=== PATIENT | female | born 1980 | race Caucasian/White ===

== ENCOUNTER → 2017-08-20 12:48 | Outpatient (CLI) | payer OTHER, SELFPAY ==
--- NOTE | 2017-08-20 12:52 | HPBI_ITS ---
MAMMOGRAPHY - BILATERAL SCREENING REASON FOR EXAM: Female, 37 years old. Routine annual screening examination. PERTINENT HISTORY: Aunt with breast cancer. TECHNIQUE: Digital bilateral breast rhiannon (3D mammographic acquisition) in the CC and MLO projections. 2-D mediolateral oblique (MLO) and craniocaudad (CC) views of both breasts were obtained. CAD: Full Field Digital Mammography with Computer Added Detection was performed. COMPARISON: Comparison is made with prior study dated August 03, 2016 and July 27, 2015. FINDINGS: Breast Composition: There are scattered areas of fibroglandular density. There are no dominant masses or suspicious calcifications. No other significant abnormalities are identified. There has been no significant change since the prior study. HPBI/SCREENING MAMM (CAD), BILAT IMPRESSION: Stable bilateral screening mammogram. Yearly follow-up mammogram recommended. (A) ASSESSMENT CATEGORY: BIRADS Category 1: Negative. A letter regarding these results will be sent to the patient by the facility within 30 days. Approximately 10% of breast cancers are not detected by mammography. A normal mammogram should not delay biopsy of a clinically suspicious abnormality. [id number] Electronically Signed: Earl Palencia MD at 8:49 EST Tel [phone], Service support ,
--- NOTE | 2017-08-20 12:52 | HPBI_ITS ---
MAMMOGRAPHY - BILATERAL SCREENING REASON FOR EXAM: Female, 37 years old. Routine annual screening examination. PERTINENT HISTORY: Aunt with breast cancer. TECHNIQUE: Digital bilateral breast reginaldo (3D mammographic acquisition) in the CC and MLO projections. 2-D mediolateral oblique (MLO) and craniocaudad (CC) views of both breasts were obtained. CAD: Full Field Digital Mammography with Computer Added Detection was performed. COMPARISON: Comparison is made with prior study dated August 03, 2016 and July 27, 2015. FINDINGS: Breast Composition: There are scattered areas of fibroglandular density. There are no dominant masses or suspicious calcifications. No other significant abnormalities are identified. There has been no significant change since the prior study. HPBI/Bilat Brst Screen Reginaldo Add-On IMPRESSION: Stable bilateral screening mammogram. Yearly follow-up mammogram recommended. (A) ASSESSMENT CATEGORY: BIRADS Category 1: Negative. A letter regarding these results will be sent to the patient by the facility within 30 days. Approximately 10% of breast cancers are not detected by mammography. A normal mammogram should not delay biopsy of a clinically suspicious abnormality. [id number] Electronically Signed: Earl Palencia MD at 8:49 EST Tel [phone], Service support ,
== END ==
PROVIDERS: Family Provider Family Medicine; PCP Family Medicine; Visit Provider Obstetrics & Gynecology
DX: Z12.31 Encounter for screening mammogram for malignant neoplasm of breast (principal)
CPT/HCPCS: 77063; 77067

== ENCOUNTER 2018-01-29 15:24 | Emergency (ER) | payer OTHER, SELFPAY ==
[2018-01-29 15:25] VITALS: BP 128/77; PULSE 79; RESP 16; TEMP 36.4; O2SAT 97; BMI 29.0
--- NOTE | 2018-01-29 15:54 | ED.VISSUMM ---
- ER Visit Summary Date of Service: 01/29/18 Chief Complaint: Chemical exposure right eye History of Present Illness: The patient is a 37 F who presents from PACU after exposure to chemicals from [place]. There is proxy 55% isopropyl alcohol and there are 2 ammonia chloride salts. She initially complained of discomfort. She irrigated her eye for 15-20 minutes. She now has no complaints other than her eye being red. She does not wear glasses or contacts. She denies double vision, blurred vision loss of vision. She does complain of slight grittiness. She denies any drainage from the eye. She denies pain with movement. She denies photophobia. Physical Examination: Vital signs are normal. Visual acuity is 20/20 right, left and both eyes. The sclera conjunctive are slightly injected on the right. Pupils are equal round reactive. Extra muscle intact. Sclera is injected. There is no photophobia to direct or consensual light. Slit lamp exam after application of floor seen reveals no corneal uptake. There is no flare cells anterior chamber. There is no abnormality of the lid, lash or lacrimal apparatus. Funduscopic exam is normal with a normal cup-to-disc ratio and no papilledema. Test Results: Slit-lamp exam was negative Emergency Department Course and Treatment: Symptomatic Treatment Plan: Discharge to home and follow-up with [facility] care Disposition: Discharged to home Impression: Chemical conjunctivitis This note was generated with [employer] dictation software. It may contain incorrect words, spelling, and punctuation that were not noted in review of the chart prior to signing ED Disposition - Plan for ED Patient: Disposition: Home or Assisted Living Chief Complaint: Eye Problem Instructions: ED Chemical Conjunctivitis Referrals: Kobe Espinosa DO [Primary Care Provider[facility] - [facility] [GROUP OF PHYSICIANS] - 2 Days
--- NOTE | 2018-01-29 16:01 | ED.DCSUM_ITS ---
- ER Visit Summary Date of Service: 01/29/18 Chief Complaint: Chemical exposure right eye History of Present Illness: The patient is a 37 F who presents from PACU after exposure to chemicals from [place]. There is proxy 55% isopropyl alcohol and there are 2 ammonia chloride salts. She initially complained of discomfort. She irrigated her eye for 15-20 minutes. She now has no complaints other than her eye being red. She does not wear glasses or contacts. She denies double vision, blurred vision loss of vision. She does complain of slight grittiness. She denies any drainage from the eye. She denies pain with movement. She denies photophobia. Physical Examination: Vital signs are normal. Visual acuity is 20/20 right, left and both eyes. The sclera conjunctive are slightly injected on the right. Pupils are equal round reactive. Extra muscle intact. Sclera is injected. There is no photophobia to direct or consensual light. Slit lamp exam after application of floor seen reveals no corneal uptake. There is no flare cells anterior chamber. There is no abnormality of the lid, lash or lacrimal apparatus. Funduscopic exam is normal with a normal cup-to-disc ratio and no papilledema. Test Results: Slit-lamp exam was negative Emergency Department Course and Treatment: Symptomatic Treatment Plan: Discharge to home and follow-up with [facility] care Disposition: Discharged to home Impression: Chemical conjunctivitis This note was generated with [employer] dictation software. It may contain incorrect words, spelling, and punctuation that were not noted in review of the chart prior to signing ED Disposition - Plan for ED Patient: Disposition: Home or Assisted Living Chief Complaint: Eye Problem Instructions: ED Chemical Conjunctivitis Referrals: Kobe Espinosa DO [Primary Care Provider] - [facility] [GROUP OF PHYSICIANS] - 2 Days
[2018-01-29] MEDS: Fluorescein 1 MG STRIP 1 STRIP RIGHT EYE (16:04)
== END 2018-01-29 16:12 | disposition home or self-care (01) ==
PROVIDERS: Emergency Provider Emergency Medicine; Family Provider Family Medicine; PCP Family Medicine
DX: H10.211 Acute toxic conjunctivitis, right eye (principal)
CPT/HCPCS: 99283

== ENCOUNTER → 2018-04-24 13:42 | Outpatient (CLI) | payer OTHER, SELFPAY ==
--- NOTE | 2018-04-24 13:45 | RAD_ITS ---
STUDY: X-RAY - LUMBAR SPINE REASON FOR EXAM: Female, 38 years old. Lower back pain TECHNIQUE: 5 view(s) of the lumbar spine were obtained. COMPARISON: None FINDINGS: Normal lumbar lordosis. There is no substantial scoliosis. There is a normal alignment of the vertebrae. Normal vertebral bodies and endplates. Normal disc space heights. The soft tissue structures are unremarkable. RAD/L/S Spine Min 4 Views IMPRESSION: Normal x-ray examination of the lumbar spine. Electronically Signed: Juan C Medrano MD at 7:04 EDT , Service support ,
== END ==
PROVIDERS: Family Provider Family Medicine; PCP Family Medicine; Referring Provider Family Medicine; Visit Provider Family Medicine
DX: M54.17 Radiculopathy, lumbosacral region (principal)
CPT/HCPCS: 72110

== ENCOUNTER → 2018-09-10 12:27 | Outpatient (CLI) | payer OTHER, SELFPAY ==
[2018-04-21 13:08] VITALS: BMI 29.0
[2018-09-10 13:51] LABS: Absolute Lymphocyte Count 1.67 X10^3/ul (0.83-4.51); Absolute Neutrophil Count 3.6 X10^3/uL (2.0-7.7); Basophil# 0.03 X10^3/uL; Basophil% 0.5 % (0-1); Eosinophil# 0.49 X10^3/uL; Eosinophils% 7.7 % (0-5); Hematocrit 38.8 % (37-47); Hemoglobin 13.2 g/dl (12.0-15.0); Lymphocyte # 1.67 X10^3/ul (4.0); Lymphocyte % 26.4 % (19-41); Mean Corpuscular Hgb 30.4 pg (27.0-32.0); Mean Corpuscular Volume 89.4 fL (81-99); Mean Platelet Vol. 9.3 fl (6.2-12.0); Monocyte# 0.55 X10^3/uL; Monocyte% 8.7 % (0-10); Neutrophil # 3.57 X10^3/uL (2.7-7.7); Neutrophil % 56.4 % (47-70); Platelet Count 306 K/mm3 (150-450); RBC Distribution Width CV 12.9 % (11.6-14.6); RBC Distribution Width SD 41.5 fl (35.1-43.9); Red Blood Count 4.34 M/mm3 (4.2-5.4); White Blood Count 6.3 K/mm3 (4.4-11.0)
[2018-09-10 13:58] LABS: POSITIVE COUNT NO; POSITIVE DIFFERENTIAL NO; POSITIVE MORPHOLOGY NO
[2018-09-10 14:11] LABS: AST(SGOT) 29 U/L (15-37); Alanine Aminotransfer ALT/SGPT 46 U/L (13-56); Albumin, Serum 3.9 g/dL (3.2-5.0); Alkaline Phosphatase 59 U/L (45-117); Anion Gap 10 (5-15); BUN 9 mg/dL (7-18); BUN/Creat Ratio 13.8 RATIO (10-20); Calcium,Total 8.2 mg/dL (8.5-10.1); Chloride 106 mmol/L (98-107); Cholesterol 151 mg/dL (200); Creatinine, Serum 0.65 mg/dL (0.55-1.02); EST Glomerular Filtration Rate 107 mL/min (>60); Est Glom Filt Rate - Afr Amer 130 mL/min (>60); Estradiol 36.8 pg/mL; Globulin 4.1 g/dL (2.2-4.2); Glucose 93 mg/dL (74-106); High Density Lipoprotein 25 mg/dL; Potassium 3.8 mmol/L (3.5-5.1); Prolactin 4.7 ng/mL; Sodium Level 140 mmol/L (136-145); Thyroid Stim Hormone (TSH) 0.84 uIU/mL (0.358-3.74); Triglycerides 394 mg/dL; Very Low Density Lipoprotein 79 mg/dL (5-40)
[2018-09-13 08:10] LABS: Testosterone, % Free 1.96 % (0.50-2.80); Testosterone, Free 0.45 ng/dL (0.10-0.85); Testosterone, Total 23 ng/dL (8-48)
[2018-09-13 12:47] LABS: DHEA Sulfate 206.3 ug/dL (57.3-279.2)
[2018-09-15 09:44] LABS: 17-Hydroxyprogesterone 16 ng/dL (.)
== END ==
PROVIDERS: Family Provider Family Medicine; PCP Family Medicine; Referring Provider Family Medicine; Visit Provider Family Medicine
DX: Z00.00 Encounter for general adult medical examination without abnormal findings (principal); N91.2 Amenorrhea, unspecified
CPT/HCPCS: 36415; 80053; 80061; 82533; 82627; 82670; 83498; 84146; 84402; 84403; 84443; 85025; 82626

== ENCOUNTER → 2018-09-23 14:40 | Outpatient (CLI) | payer OTHER, SELFPAY ==
--- NOTE | 2018-09-23 14:41 | BI_ITS ---
MAMMOGRAPHY - BILATERAL SCREENING REASON FOR EXAM: Female, 38 years old. Routine annual screening examination. PERTINENT HISTORY: Aunts with breast cancer. TECHNIQUE: Digital bilateral breast rhiannon (3D mammographic acquisition) in the CC and MLO projections. 2-D mediolateral oblique (MLO) and craniocaudad (CC) views of both breasts were obtained. CAD: Full Field Digital Mammography with Computer Added Detection was performed. COMPARISON: Comparison is made with prior study dated August 20, 2017 and August 03, 2016. FINDINGS: Breast Composition: There are scattered areas of fibroglandular density. There are no dominant masses or suspicious calcifications. No other significant abnormalities are identified. There has been no significant change since the prior study. BI/SCREENING MAMM (CAD), BILAT IMPRESSION: Stable bilateral screening mammogram. Yearly follow-up mammogram recommended. (A) ASSESSMENT CATEGORY: BIRADS Category 1: Negative. A letter regarding these results will be sent to the patient by the facility within 30 days. Approximately 10% of breast cancers are not detected by mammography. A normal mammogram should not delay biopsy of a clinically suspicious abnormality. [id number] Electronically Signed: Earl Palencia, at 9:07 EDT , Service support ,
== END ==
PROVIDERS: Family Provider Family Medicine; PCP Family Medicine; Referring Provider Obstetrics & Gynecology; Visit Provider Obstetrics & Gynecology
DX: Z12.31 Encounter for screening mammogram for malignant neoplasm of breast (principal)
CPT/HCPCS: 77063; 77067

== ENCOUNTER → 2018-10-10 09:21 | Outpatient (CLI) | payer OTHER, SELFPAY ==
--- NOTE | 2018-10-10 09:23 | RAD_ITS ---
STUDY: SWALLOWING STUDY REASON FOR EXAM: Female, 38 years old. Dysphagia. TECHNIQUE: The examination was performed with Speech Pathology in attendance. Under fluoroscopic observation, the patient ingested thin barium, thick barium, barium pudding, and barium coated cracker. FLUOROSCOPY TIME: 1:33 minutes/seconds. 1471 images were obtained. RADIOLOGIST INVOLVEMENT: Radiologist was present and providing direct supervision. COMPARISON: None. FINDINGS: The following was observed during swallowing of the various mixtures of barium: Thin Barium: There was no evidence of aspiration or laryngeal penetration. Barium Pudding: There was no evidence of aspiration or laryngeal penetration. Barium Coated Cracker: There was no evidence of aspiration or laryngeal penetration. RAD/Swallowing Function w/Video IMPRESSION: Normal tailored barium swallow study. No evidence of increased risk for aspiration. The swallow study findings were discussed with the patient by the speech pathologist at the conclusion of the examination. Please see speech pathology report for more information and recommendations. Electronically Signed: Earl Palencia, at 10:15 EDT , Service support ,
--- NOTE | 2018-10-10 09:30 | SP.MBSS_ITS ---
PRIMARY / SECONDARY DIAGNOSIS: Dysphagia REFERRING PHYSICIAN: Dr. Espinosa CURRENT DIET: regular textures/tin liquids DENTITION: natural MENTAL STATUS: WNL RESPIRATORY STATUS: WNL PREVIOUS MODIFIED BARIUM SWALLOW STUDY: n/a REASON FOR REFERRAL: further assessment of swallow function d/t reported coughing during and after meals, primarily w/ solid textures (bread, pasta), once requiring the Heimlich maneuver, globus sensation MEDICAL HISTORY: limited history provided by patient; GERD w/ recent initiation of Protonix STUDY FINDINGS: Patient participated in a Modified Barium Swallow (MBS) study on 10/10/2018. Dr. Palencia was the radiologist present for this evaluation. This study was recorded in the lateral view and images were sent to PACs for storage. The following consistencies were presented to this patient for analysis of oropharyngeal swallow function: thin liquid, pudding and a regular texture shortbread cookie. Results of the MBS are as follows: PENETRATION / ASPIRATION SCALE (JOEL): 1 = does not enter airway 2 = enters airway/above vocal folds/ejected 3 = enters airway/above vocal folds/not ejected 4 = enters airway/contacts vocal folds/ejected 5 = enters airway/contacts vocal folds/not ejected 6 = enters airway/below vocal folds/ejected 7 = enters airway/below vocal folds/not ejected despite effort 8 = enters airway/below vocal folds/no effort PENETRATION / ASPIRATION SCALE (SCORE): 1. Thin liquid via teaspoon: 1 2. Thin liquid via teaspoon: 1 3. Thin liquid via cup, single sip: 1 4. Thin liquid via cup, sequential swallows: 1 5. Thin liquid via straw, single sip: 1 6. Puddin 7. Cookie: 1 IMPRESSION ORAL PHASE CHARACTERIZED BY: LABIAL SEAL: no labial escape TONGUE CONTROL DURING BOLUS MANIPULATION: cohesive bolus between tongue to palatal seal BOLUS PREPARATION / MASTICATION: timely and efficient chewing and mashing BOLUS TRANSPORT / LINGUAL MOTION: brisk tongue motion ORAL RESIDUE: complete oral clearance PHARYNGEAL PHASE CHARACTERIZED BY: INITIATION OF PHARYNGEAL SWALLOW: bolus head at posterior angle of ramus at first hyoid excursion SOFT PALATE ELEVATION: no bolus between soft palate and pharyngeal wall LARYNGEAL ELEVATION: complete superior movement of thyroid cartilage with complete approximation of arytenoids cartilage to epiglottic petiole ANTERIOR HYOID EXCURSION: complete anterior movement EPIGLOTTIC MOVEMENT: complete epiglottic inversion LARYNGEAL VESTIBULE CLOSURE AT HEIGHT OF SWALLOW: complete laryngeal vestibule closure with no air/contrast in laryngeal vestibule PHARYNGEAL STRIPPING WAVE: pharyngeal stripping wave present / complete PHARYNGOESOPHAGEAL SEGMENT OPENING: complete distension and complete duration with no obstruction of flow TONGUE BASE RETRACTION: no contrast between tongue base and posterior pharyngeal wall PHARYNGEAL RESIDUE: trace residue within or on pharyngeal structures ESOPHAGEAL PHASE CHARACTERIZED BY: ESOPHAGEAL BOLUS CLEARANCE IN THE UPRIGHT POSITION: esophageal retention INTERPRETATION OF RESULTS: Patient presents with an oropharyngeal swallow function that is grossly within normal limits. Oral phase marked by sufficient oral containment, timely bolus prep and A-P transfer, trace contrast retention post deglutition. Pharyngeal phase is marked by sufficient tongue base contact w/ the posterior pharyngeal wall, timely pharyngeal swallow onset, hyolaryngeal excursion WNL w/ complete vocal fold adduction/laryngeal vestibule closure/epiglottic inversion for airway protection, complete PES distention for bolus clearance into the esophagus, trace contrast retention lining the valleculae post deglutition. Esophageal phase marked by retention below the PES w/ slowed clearance. Globus sensation possibly attributed to mild esophageal retention noted w/ pudding trial. The Patient presents with mastication and deglutition abilities found to be grossly within normal limits. 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 Would consider further workup via ENT to determine if there is structural damage or irritation due to possible reflux of gastric contents that may be contributing to globus sensation and coughing following meals. No further skilled speech-language intervention warranted. ADDITIONAL COMMENTS/RECOMMENDATIONS: Results and recommendations were discussed with the Patient immediately following MBS completion, with the Patient verbalizing understanding and agreement with all recommendations and education provided. IMAGE COUNT: [id number]
== END ==
PROVIDERS: Family Provider Family Medicine; PCP Family Medicine; Referring Provider Family Medicine; Visit Provider Family Medicine
DX: R13.10 Dysphagia, unspecified (principal)
CPT/HCPCS: 74230; 92611

== ENCOUNTER → 2019-10-13 | Outpatient (CLI) | payer OTHER, SELFPAY ==
[2018-10-23 08:37] VITALS: BMI 30.7
[2019-10-13 16:59] LABS: Hemoglobin 12.7 g/dL (12.0-15.0); Mean Corp Hgb Conc 34.3 g/dL (32-36); Mean Corpuscular Hgb 29.7 pg (27.0-32.0); Mean Corpuscular Volume 86.7 fL (81-99); Platelet Count 318 K/mm3 (150-450); RBC Distribution Width CV 12.9 % (11.6-14.6); RBC Distribution Width SD 39.6 fl (35.1-43.9); Red Blood Count 4.27 M/mm3 (4.2-5.4); White Blood Count 7.7 K/mm3 (4.4-11.0)
[2019-10-13 17:25] LABS: Vitamin D,25 Hydroxy 16.6 ng/mL
[2019-10-13 17:31] LABS: Estradiol 44.5 pg/mL; Thyroid Stim Hormone (TSH) 0.97 uIU/mL (0.358-3.74)
[2019-10-13 17:58] LABS: Progesterone Level < 0.21 ng/mL (See Comment)
[2019-10-17 14:07] LABS: DHEA Sulfate 225.1 ug/dL (57.3-279.2)
[2019-10-17 16:59] LABS: Anti-Mullerian Hormone,Serum 0.284 ng/mL (.); Cancer Antigen 125 11.7 U/mL (0.0-38.1); Sex Hormone-binding Globulin 19.3 nmol/L (24.6-122.0)
== END | disposition home or self-care (01) ==
PROVIDERS: PCP Family Medicine; Referring Provider Obstetrics & Gynecology; Visit Provider Obstetrics & Gynecology
DX: N91.5 Oligomenorrhea, unspecified (principal)
CPT/HCPCS: 36415; 82306; 82627; 82670; 83516; 84144; 84270; 84403; 84443; 85027; 86304; 82626

== ENCOUNTER → 2019-11-10 | Outpatient (CLI) | payer OTHER, SELFPAY ==
[2018-10-23 08:37] VITALS: BMI 30.7
--- NOTE | 2019-11-10 15:43 | US_ITS ---
STUDY: ULTRASOUND OF THE FEMALE PELVIS - COMPLETE REASON FOR EXAM: Female, 39 years old. irreg menses LMP: 09/27/2019 TECHNIQUE: Transabdominal TECHNICAL QUALITY: Limited. Examination limited by bowel gas. COMPARISON: None. FINDINGS: The uterus is anteverted and is in a midline position. The uterus measures 9.7 x 6.1 x 4.2 cm. There is a Nabothian cyst of the cervix. The endometrium measures 7.0 mm in thickness, and is hyperechoic. There is no demonstrated endometrial mass. There is no demonstrated myometrial mass. I.U.D. - The patient does not have an I.U.D. The right ovary is visualized. The right ovary measures 2.2 x 1.8 x 1.2 cm. Within the right ovary there is a round anechoic structure consistent with a cyst measuring 0.8 x 0.8 x 0.5 cm. There is no visualized right adnexal mass or complex lesion. There is normal arterial and normal venous vascularity. The left ovary is visualized. The left ovary measures 6.0 x 3.4 cm. Within the left ovary there is a round anechoic structure measuring 2.9 x 2.9 x 3.2 cm consistent with a simple cyst. There is no visualized left adnexal mass or complex lesion. There is normal arterial and normal venous vascularity. There is no fluid in the cul-de-sac. The volume of the bladder was 358.98 ml. US/Pelvic (Non ) IMPRESSION: Normal female pelvis ultrasound. Electronically Signed: Tara Salas MD at 0:29 EDT , Service support ,
== END | disposition home or self-care (01) ==
LOC: OPUS 15:42
PROVIDERS: PCP Family Medicine; Referring Provider Obstetrics & Gynecology; Visit Provider Obstetrics & Gynecology
DX: N92.5 Other specified irregular menstruation (principal)
CPT/HCPCS: 76856

== ENCOUNTER → 2020-01-05 08:56 | Outpatient (CLI) | payer OTHER, SELFPAY ==
[2020-01-05 08:53] VITALS: BMI 29.0
--- NOTE | 2020-01-05 08:58 | RAD_ITS ---
STUDY: X-RAY - LEFT HAND, ATTENTION INDEX FINGER REASON FOR EXAM: Female, 39 years old. BUMP POSTERIOR FINGER AT DIPJ, NO INJURY TECHNIQUE: 3 view(s) of the finger were obtained. COMPARISON: None. FINDINGS: Normal metacarpal head. Normal metacarpophalangeal joint. Normal proximal phalanx. Normal middle phalanx. Normal distal phalanx. Normal proximal interphalangeal joint. Normal distal interphalangeal joint. Nonspecific soft tissue swelling over the DIP joint of the index finger. No radiopaque foreign body noted. RAD/Finger(s) Min 2 Views IMPRESSION: Normal x-ray examination of the finger. Nonspecific soft tissue swelling dorsal to the DIP joint of the index finger, no foreign body noted Electronically Signed: Jorge Alberto Billy MD at 10:03 EDT , Service support ,
== END ==
PROVIDERS: PCP Family Medicine; Referring Provider Orthopaedic Surgery; Visit Provider Orthopaedic Surgery
DX: M79.645 Pain in left finger(s) (principal)
CPT/HCPCS: 73140

== ENCOUNTER → 2020-05-25 11:10 | Outpatient (CLI) | payer OTHER, SELFPAY ==
[2018-10-23 08:37] VITALS: BMI 30.7
[2020-01-05 08:53] VITALS: BMI 29.0
[2020-05-25 11:56] LABS: Glucose 96 mg/dL (74-106)
[2020-05-25 12:05] LABS: Insulin 9.7 mU/L (2.6-37.6)
[2020-05-25 12:07] LABS: Hemoglobin A1c 5.4 % (3.8-5.6)
[2020-05-26 10:25] LABS: Hematocrit 35.7 % (37-47); Hemoglobin 11.7 g/dL (12.0-15.0); Mean Corp Hgb Conc 32.8 g/dL (32-36); Mean Corpuscular Hgb 27.7 pg (27.0-32.0); Mean Corpuscular Volume 84.6 fL (81-99); Mean Platelet Vol. 9.5 fl (6.2-12.0); Platelet Count 366 K/mm3 (150-450); RBC Distribution Width CV 12.8 % (11.6-14.6); Red Blood Count 4.22 M/mm3 (4.2-5.4); White Blood Count 6.8 K/mm3 (4.4-11.0)
== END ==
PROVIDERS: PCP Family Medicine; Referring Provider Obstetrics & Gynecology; Visit Provider Obstetrics & Gynecology
DX: N92.5 Other specified irregular menstruation (principal); N92.1 Excessive and frequent menstruation with irregular cycle
CPT/HCPCS: 36415; 82947; 83036; 83525; 85027

== ENCOUNTER → 2020-06-07 12:25 | Outpatient (CLI) | payer OTHER, SELFPAY ==
[2020-01-05 08:53] VITALS: BMI 29.0
--- NOTE | 2020-06-07 12:27 | US_ITS ---
STUDY: ULTRASOUND OF THE FEMALE PELVIS - COMPLETE REASON FOR EXAM: Female, 40 years old. IRREGULAR MENSES MENSES SINCE Apr ON [place]OVERA LMP: 04/16/2020 TECHNIQUE: Transabdominal and Transvaginal TECHNICAL QUALITY: Adequate. COMPARISON: None. FINDINGS: The uterus is anteverted and is in a midline position. The uterus measures 8.7 x 4.7 x 4.0 cm. Normal uterine cervix. The endometrium measures 6.1 mm in thickness, and is hyperechoic. There is no demonstrated endometrial mass. 2 fibroids are noted, largest measuring 1.8 x 2.1 x 2.1 cm. I.U.D. - The patient does not have an I.U.D. possible endometrial polyp measuring 8 x 9 x 4 mm. The right ovary is visualized. The right ovary measures 3.9 x 3.6 x 2.8 cm cm. There is no right ovarian cyst or ovarian mass. Septated ovarian cyst measuring 3.2 x 3.2 x 2.5 cm. There is normal arterial and normal venous vascularity. The left ovary is visualized. The left ovary measures 2.5 x 2.1 x 1.9 cm cm. There is no left ovarian cyst or ovarian mass. There is no visualized left adnexal mass or complex lesion. There is normal arterial and normal venous vascularity. There is no fluid in the cul-de-sac. The pre void volume of the bladder was 868 ml. Polycystic ovary disease: No. US/Transvaginal Non- IMPRESSION: 1. Uterine fibroids 2. Possible endometrial polyp 3. Partially septated right ovarian cyst Electronically Signed: Ja Sanon DO at 22:49 EST Tel , Service support ,
--- NOTE | 2020-06-07 12:27 | US_ITS ---
STUDY: ULTRASOUND OF THE FEMALE PELVIS - COMPLETE REASON FOR EXAM: Female, 40 years old. IRREGULAR MENSES MENSES SINCE Apr ON PROVERA LMP: 04/16/2020 TECHNIQUE: Transabdominal and Transvaginal TECHNICAL QUALITY: Adequate. COMPARISON: None. FINDINGS: The uterus is anteverted and is in a midline position. The uterus measures 8.7 x 4.7 x 4.0 cm. Normal uterine cervix. The endometrium measures 6.1 mm in thickness, and is hyperechoic. There is no demonstrated endometrial mass. 2 fibroids are noted, largest measuring 1.8 x 2.1 x 2.1 cm. I.U.D. - The patient does not have an I.U.D. possible endometrial polyp measuring 8 x 9 x 4 mm. The right ovary is visualized. The right ovary measures 3.9 x 3.6 x 2.8 cm cm. There is no right ovarian cyst or ovarian mass. Septated ovarian cyst measuring 3.2 x 3.2 x 2.5 cm. There is normal arterial and normal venous vascularity. The left ovary is visualized. The left ovary measures 2.5 x 2.1 x 1.9 cm cm. There is no left ovarian cyst or ovarian mass. There is no visualized left adnexal mass or complex lesion. There is normal arterial and normal venous vascularity. There is no fluid in the cul-de-sac. The pre void volume of the bladder was 868 ml. Polycystic ovary disease: No. US/Pelvic (Non ) IMPRESSION: 1. Uterine fibroids 2. Possible endometrial polyp 3. Partially septated right ovarian cyst Electronically Signed: Ja Sanon DO at 22:49 EST Tel , Service support ,
== END ==
PROVIDERS: PCP Family Medicine; Referring Provider Obstetrics & Gynecology; Visit Provider Obstetrics & Gynecology
DX: N92.1 Excessive and frequent menstruation with irregular cycle (principal)
CPT/HCPCS: 76830; 76856

== ENCOUNTER → 2020-07-06 08:35 | Outpatient (CLI) | payer OTHER, SELFPAY ==
[2020-01-05 08:53] VITALS: BMI 29.0
[2020-06-24 10:38] LABS: Hematocrit 33.9 % (37-47); Hemoglobin 11.2 g/dL (12.0-15.0); Mean Corpuscular Hgb 28.1 pg (27.0-32.0); Mean Corpuscular Volume 85.2 fL (81-99); Mean Platelet Vol. 8.5 fl (6.2-12.0); Platelet Count 374 K/mm3 (150-450); RBC Distribution Width CV 13.4 % (11.6-14.6); RBC Distribution Width SD 41.2 fl (35.1-43.9); Red Blood Count 3.98 M/mm3 (4.2-5.4)
[2020-06-24 10:56] LABS: Prothrombin Time (Protime)PT. 13.1 SECONDS (11.7-14.9)
[2020-06-24 10:57] LABS: Partial Thromboplast Time 27.1 Seconds (24.1-36.2)
== END ==
PROVIDERS: PCP Family Medicine; Referring Provider Obstetrics & Gynecology; Visit Provider Obstetrics & Gynecology
DX: Z01.818 Encounter for other preprocedural examination (principal)
CPT/HCPCS: 36415; 85027; 85610; 85730; 86850; 86900; 86901

== ENCOUNTER → 2020-11-30 10:24 | Outpatient (CLI) | payer OTHER, SELFPAY ==
[2020-01-05 08:53] VITALS: BMI 29.0
--- NOTE | 2020-11-30 10:26 | BI_ITS ---
MAMMOGRAPHY - BILATERAL SCREENING 3-D TOMOSYNTHESIS REASON FOR EXAM: Female, 40 years old. Routine screening PERTINENT HISTORY: Aunts with breast cancer.. TECHNIQUE: 2-D mammograms and 3-D Tomosynthesis of the breast (s) were performed. CAD was performed. COMPARISON: 09/23/2018 FINDINGS: The breast composition is composed of scattered fibroglandular density. Scattered benign calcifications are seen. No dense spiculated masses or suspicious microcalcifications are identified. No architectural distortion is identified. There is no skin thickening or retraction. There has been no significant change since the prior study. BI/SCRN MAMM (CAD)W/SHAY BILAT IMPRESSION: No mammographic signs of malignancy. Routine yearly mammograms recommended. ASSESSMENT CATEGORY: BIRADS Category 1: Negative. A letter regarding these results will be sent to the patient by the facility within 30 days. FOLLOW UP RECOMMENDATION: Yearly follow up mammogram recommended. (A) Approximately 10% of breast cancers are not detected by mammography. A normal mammogram should not delay biopsy of a clinically suspicious abnormality. Electronically Signed: Jorge Alberto Billy MD at 11:12 EDT , Service support ,
== END ==
PROVIDERS: PCP Family Medicine; Referring Provider Obstetrics & Gynecology; Visit Provider Obstetrics & Gynecology
DX: Z12.31 Encounter for screening mammogram for malignant neoplasm of breast (principal)
CPT/HCPCS: 77063; 77067

== ENCOUNTER → 2021-04-19 12:28 | Outpatient (CLI) | payer OTHER, SELFPAY ==
--- NOTE | 2021-04-19 12:30 | US_ITS ---
STUDY: ULTRASOUND BREAST - LEFT REASON FOR EXAM: Female, 41 years old. Palpable mass, pain TECHNIQUE: Axial and longitudinal images of the LEFT breast were performed with a high resolution ultrasound transducer. # OF IMAGES: [id number] COMPARISON: Screening mammogram 11/30/2020 FINDINGS: LEFT Breast: Heterogeneous background echotexture. Multiple longitudinal and transverse ultrasound images of the upper outer quadrant demonstrate 8mm oval parallel circumscribed hypoechoic mass with no posterior features not consistent with a simple cyst and therefore ultrasound-guided vacuum-assisted core biopsy is recommended.: US/Breast Limited Unilateral IMPRESSION: Ultrasound confirms an 8 mm oval circumscribed hypoechoic mass and ultrasound-guided vacuum-assisted core biopsy is recommended. ASSESSMENT CATEGORY: BIRADS Category 4: Suspicious - Biopsy Should Be Considered. A letter regarding these results will be sent to the patient by the facility within 30 days. Electronically Signed: Benitez Cotto MD at 16:19 EDT Tel , Service support ,
== END ==
PROVIDERS: PCP Family Medicine; Referring Provider Obstetrics & Gynecology; Visit Provider Obstetrics & Gynecology
DX: N63.20 Unspecified lump in the left breast, unspecified quadrant (principal); N64.4 Mastodynia
CPT/HCPCS: 76642

== ENCOUNTER → 2021-04-29 07:50 | Outpatient (CLI) | payer OTHER, SELFPAY ==
--- NOTE | 2021-04-29 | BRBX_PTH ---
PATIENT: ABHI STEPHENS LOC: [facility]US U#:[id number] AGE/SX: 45/F ROOM: RE04/29/[address]: Dr. Schuyler Franklin MD : 1980 BED: DIS: SPEC #: [id number] RECD: 04/29/21 10:57 STATUS: GEOVANY REJaclyn #: [id number] VANESSA: 04/29/21 00:[address]: Schuyler Franklin DEPT: SURGICAL PATHOLOGY RECD BY: Juan Cm ENTERED: 04/29/21 10:57 SP TYPE: BREAST BX OTHR DR: Dr. Kobe Espinosa DO Tissues: Left breast, NOS Procedures: Surgery Specimen Level IV HEADER OPERATION: Ultrasound-guided left breast biopsy PRE-OP DIAGNOSIS: Left breast lesion near axilla TISSUE SUBMITTED: Axilla left breast ISCHEMIC TIME: 1 minute FIXATION TIME: 59 hours MICROSCOPIC DIAGNOSIS Left breast lesion near axilla, ultrasound-guided core biopsy: Fragments of fibroadipose tissue, no pathologic diagnosis. Negative for atypia or malignancy. See comment. CAROLA:isabel 05/02/2021 COMMENT Breast tissue is not identified in the specimen. Correlation with clinical, radiologic findings and appropriate follow up are necessary. Re-biopsy or excision of the lesion is suggested if clinically indicated. MICROSCOPIC DESCRIPTION Slides are reviewed. GROSS DESCRIPTION Received in fixative is one container labeled with the patient's name and designated left breast. The specimen consists of multiple elongated fragments of mckeon-yellow fibroadipose tissue that in aggregate measure 1 x 0.5 x 0.1 cm. The entire specimen is submitted in one cassette. / CAROLA:isabel 04/29/21 TC:4 [facility] [place]: [id number]
--- NOTE | 2021-04-29 07:57 | US_ITS ---
STUDY: ULTRASOUND BREAST - LEFT REASON FOR EXAM: Female, 41 years old. Ultrasound guided biopsy of the left axillary mass. TECHNIQUE: Axial and longitudinal images of the LEFT breast were performed with a high resolution ultrasound transducer. # OF IMAGES: 21 COMPARISON: Comparison is made with prior sonogram dated 04/19/2021. FINDINGS: LEFT Breast: Under direct sonographic guidance, the surgeon performed 3 core biopsies of the left axillary mass. US/US Breast Biopsy 1st Lesion IMPRESSION: Ultrasound guided biopsy of the left axillary mass. ASSESSMENT CATEGORY: BIRADS Category 4: Suspicious - Biopsy Should Be Considered. A letter regarding these results will be sent to the patient by the facility within 30 days. Electronically Signed: Earl Palencia MD at 15:07 EDT , Service support ,
--- NOTE | 2021-04-29 08:33 | PCM.OPRPT ---
Problems Associated Problem List Diagnoses (1) Left breast mass: Report of Operation Date of Procedure: 04/29/21 Pre-Operative Diagnosis: Left breast mass Post-Operative Diagnosis: Same Surgery/Procedure Performed:: Ultrasound-guided biopsy of left breast mass Description of Procedure: Patient's left axilla and breast were prepped and draped in usual sterile fashion. Ultrasound used to localize the mass. Local anesthetic was injected into the skin and into the breast tissue and then a small camelia was made with a scalpel. 14-gauge biopsy needle was placed in the breast and under direct visualization several biopsies of the mass were obtained. Next a clip was placed into the mass and a Steri-Strip and bandage were placed over the incision and the patient tolerated this well.
== END ==
PROVIDERS: PCP Family Medicine; Referring Provider Surgery; Visit Provider Surgery
DX: N60.32 Fibrosclerosis of left breast (principal)
CPT/HCPCS: 19083; 88305

== ENCOUNTER → 2022-03-24 | Outpatient (CLI) | payer BC, SELFPAY ==
[2022-04-01 07:14] LABS: HPV APTIMA, High Risk Negative (Negative)
== END | disposition home or self-care (01) ==
LOC: LABSPEC 15:55
PROVIDERS: PCP Family Medicine; Visit Provider Obstetrics & Gynecology
DX: Z12.4 Encounter for screening for malignant neoplasm of cervix (principal)
CPT/HCPCS: 87624; 88175; G0145

== ENCOUNTER 2022-06-22 17:09 | Emergency (ER) | payer BC, SELFPAY ==
[2022-06-22 17:10] VITALS: BP 138/58; PULSE 90; RESP 16; TEMP 36.3; O2SAT 99; BMI 27.4
--- NOTE | 2022-06-22 17:58 | CT_ITS ---
STUDY: CT ABDOMEN AND PELVIS WITH CONTRAST REASON FOR EXAM: Female, 42 years old. Lower abd pain -- IV PO Contrast RADIATION DOSAGE (If Supplied By Facility): CTDIvol = ( 13.80 ) mGy, DLP = ( 771.28 ) mGycm TECHNIQUE: Transaxial images were obtained from the dome of the diaphragm to the symphysis pubis without oral contrast. Oral and amp; IV Gastrografin and amp; 100mL Isovue-370 was administered. Sagittal and coronal images were reconstructed. Individualized dose optimization techniques were used for this CT. COMPARISON: None. FINDINGS: The visualized lung bases are unremarkable. The visualized portions of the heart are within normal limits. Normal liver. Normal gallbladder and extrahepatic biliary system. Normal spleen. Normal pancreas. Normal bilateral adrenal glands. Normal right kidney. Normal left kidney. Normal visualized stomach. Normal small intestine. Short segment colonic wall irregular thickening at the hepatic flexure with mild associated inflammatory stranding. There is at least one prominent medial pericolonic lymph node. The appendix is visualized and appears normal. Normal abdominal aorta. Normal inferior vena cava. Normal retroperitoneum. Normal urinary bladder. Normal visualized uterus. 3.7 cm left adnexal cyst. Normal abdominal wall. Normal thoracolumbar vertebral alignment. CT/Abdomen/Pelvis WITH Contrast IMPRESSION: Irregular colon wall thickening at the hepatic flexure suspicious for colon cancer. At least one prominent pericolonic lymph node raises suspicion for local metastasis. Electronically Signed: Hector Gonzalez MD at 20:16 EST ,
--- NOTE | 2022-06-22 17:59 | ED.VIS.GI ---
HPI HPI - GI History of Present Illness Chief Complaint: Abd Pain Informant: patient Narrative Narrative: Sent in here from [facility] office for evaluation of lower abdominal pain. I spoke with Dr. Monsivais prior to her arrival. Patient been having intermittent lower abdominal pain for the past 2 weeks. She had IUD placed in October. She follows with gynecology yesterday IUD seem to be out of place it was removed. She is doing fine. Today increasing discomfort. Pain causes nausea and vomiting. No fevers. Multiple bowel movements a day. Today felt little more bloated. Currently not nauseated. No abdominal surgeries in the past. No history of similar. No colonoscopies in the past. Allergies to penicillin and sulfa. Symptom significant subsided currently. Reported ultrasound in the office yesterday noted ovarian cysts to 3 cm on the left side. Prior similar symptoms: No PFSH PFSH Medical History (Updated 06/22/22 @ 21:[address] Sumanth Carbajal DO) Anxiety Dysphagia GERD (gastroesophageal reflux disease) IUD complication Home Medications NK 06/22/22 [History Last Taken Unknown] Allergy/AdvReac Type Severity Reaction Status Date / Time Penicillins Allergy Severe anaphalaxis Verified 06/22/22 17:12 Sulfa (Sulfonamide Allergy Severe Rash Verified 06/22/22 17:12 Antibiotics) Family History Mother Hypertension Brother Hypertension Surgical History H/O Moh's micrographic surgery for skin cancer History of dilation and curettage (~2006) Social History Smoking Status: Never smoker alcohol intake: never ROS ROS ED Constitutional Constitutional ED: Denies chills, fever(s) or sweats Eyes Eyes: Denies change in vision ENT ENT ED: Denies dysphagia or sore throat Cardiovascular Cardiovascular: Denies chest pain, leg edema, palpitations or racing heartbeat Respiratory/Chest Respiratory/Chest: Denies cough, dyspnea or dyspnea on exertion Gastrointestinal Gastrointestinal: Reports abdominal pain, nausea and vomiting; Denies diarrhea Genitourinary Genitourinary ED: Denies dysuria, hematuria or urinary frequency Musculoskeletal Musculoskeletal: Denies back pain, extremity pain or neck pain Integumentary Denies rash or wounds Neurologic Neurologic: Denies headache(s), paresthesias or weakness EXAM Physical Exam Const Vital Signs: 06/22/22 17:10 06/22/22 19:06 06/22/22 21:22 Temperature 97.3 F L Temperature Source Temporal Pulse Rate 90 80 88 Respiratory Rate 16 16 16 Blood Pressure 138/58 H 133/78 H Blood Pressure Mean 84 96 Pulse Ox 99 99 Oxygen Delivery Method Room Air Room Air Positive well nourished and well developed General Appearance ED: well developed and NAD HEENT HEENT Narrative: Mild dry mucosal membranes normocephalic and atraumatic Eyes PERRL, EOMs intact bilaterally and conjunctivae normal General Eye ED: Yes normal appearance of both eyes Neck no lymphadenopathy and supple General: Negative for tenderness Chest Wall Chest: Negative for tenderness Resp normal respiratory effort and normal air movement Effort and Inspection: symmetric chest movement; Negative for respiratory distress Cardio regular rate, regular rhythm and no murmurs Peripheral Pulses: pulses 2+ throughout GI normal to inspection, nondistended, normoactive bowel sounds GI Narrative: Mild tenderness suprapubic right lower quadrant. Negative De La O's. No guarding or rebound. Palpation: Negative for guarding or rebound tenderness present Back/Spine no CVA tenderness and no thoracic nor lumbar tenderness Extremity normal to inspection General Extremety ED: Negative for edema or tenderness General Extremity: Negative for edema Neuro oriented x3 and no sensory deficits noted Sensorium / Orientation: awake and alert Skin no rashes or lesions noted and no wounds MDM MDM MDM Narrative Medical decision making narrative: Patient soft abdomen exam with resolving symptoms known ovarian cyst from yesterday however sent in here for evaluation. Labs normal white count hemoglobin 10.6. Creatinine 0.81. hCG negative. Urine negative. CT scan with oral and IV contrast obtained noting normal appendix.Noted left ovarian cyst of 3.7 cm. However additional noted thickening of the colon at the hepatic flexure concerning for possible cancer additional 1 pericolonic enlarged lymph node concerns for local metastasis. This was discussed with the patient. Reports uncle on father side colon cancer approximately 52 years of age. Patient with no colonoscopy in the past. I did discuss with GI Dr. Valiente who will follow up with her closely as an outpatient. Lab Data Attestation: I reviewed the patient's lab results. Labs: Laboratory Results - last 24 hr 06/22/22 06/22/22 06/22/22 18:05 18:05 18:05 WBC 10.2 RBC 4.15 L Hgb 10.6 L Hct 33.6 L MCV 81.0 MCH 25.5 L MCHC 31.5 L RDW Std Deviation 39.4 RDW Coeff of Nazanin 13.5 Plt Count 377 MPV 8.9 Immature Gran % (Auto) 0.400 Neut % (Auto) 82.3 H Lymph % (Auto) 9.6 L Warrick % (Auto) 6.0 Eos % (Auto) 1.4 Baso % (Auto) 0.3 Absolute Neuts (auto) 8.4 H Absolute Lymphs (auto) 0.98 Nucleated RBC % 0 Sodium 141 Potassium 3.8 Chloride 109 H Carbon Dioxide 26.0 Anion Gap 6 BUN 13 Creatinine 0.81 Estim Creat Clear Calc 83.84 Est GFR (MDRD) Af Amer 99 Est GFR (MDRD) Non-Af 82 BUN/Creatinine Ratio 16.1 Glucose 114 H Calcium 8.7 Serum , Qual NEGATIVE Urine Color Urine Clarity Urine pH Ur Specific [place] Urine Protein Urine Glucose (UA) Urine Ketones Urine Occult Blood Urine Nitrite Urine Bilirubin Urine Urobilinogen Ur Leukocyte Esterase Urine RBC Urine WBC Ur Squamous Epith Cells Urine Bacteria Urine Mucus 06/22/22 18:18 WBC RBC Hgb Hct MCV MCH MCHC RDW Std Deviation RDW Coeff of Nazanin Plt Count MPV Immature Gran % (Auto) Neut % (Auto) Lymph % (Auto) Warrick % (Auto) Eos % (Auto) Baso % (Auto) Absolute Neuts (auto) Absolute Lymphs (auto) Nucleated RBC % Sodium Potassium Chloride Carbon Dioxide Anion Gap BUN Creatinine Estim Creat Clear Calc Est GFR (MDRD) Af Amer Est GFR (MDRD) Non-Af BUN/Creatinine Ratio Glucose Calcium Serum , Qual Urine Color Yellow Urine Clarity Clear Urine pH 7.0 Ur Specific Marl[place] 1.010 Urine Protein Negative Urine Glucose (UA) Normal Urine Ketones Negative Urine Occult Blood 10 H Urine Nitrite Negative Urine Bilirubin Negative Urine Urobilinogen Normal Ur Leukocyte Esterase Negative Urine RBC 0 SEEN Urine WBC 0 SEEN Ur Squamous Epith Cells 0-5 SEEN Urine Bacteria 0 SEEN Urine Mucus 0 SEEN Radiography Diagnostic Testing: Clinical Impression(s) from Imaging Studies Abdomen/Pelvis CT 06/22/22 17:58 IMPRESSION: Irregular colon wall thickening at the hepatic flexure suspicious for colon cancer. At least one prominent pericolonic lymph node raises suspicion for local metastasis. Electronically Signed: Hector Gonzalez MD at 20:16 EST , Discharge Plan Triage Chief Complaint: Abd Pain ED Provider: Sumanth Carbajal Dx/Rx/DC Orders Clinical Impression: Cyst of left ovary, Colon wall thickening Instructions: ED Ovarian Cyst Prescriptions: No Action NK Primary Care Provider: Kobe Espinosa Referrals: Kobe Espinosa DO [Primary Care Provider] - Jay Valiente DO [Med Staff - Active Staff] - 1 Day Activity Restrictions/Additional Instructions: Thickenin colom seen at the hepatic flexure with differential concerning for cancer. Also noted 1 pericolonic enlarged lymph node. Left ovarian cysts 3.[address] Valiente, call for follow-up in the office for further work-up. Disposition Disposition: Home, Self Care Discharge Date/Time: 06/22/22 21:23
[2022-06-22] MEDS: 0.9% Normal Saline 1,000 ML 1000 ML IV (18:09)
[2022-06-22 18:14] LABS: Absolute Lymphocyte Count 0.98 X10^3/uL (0.83-4.51); Absolute Neutrophil Count 8.4 X10^3/uL (2.0-7.7); Basophil# 0.03 X10^3/uL; Basophil% 0.3 % (0-1); Eosinophil# 0.14 X10^3/uL; Eosinophils% 1.4 % (0-5); Hematocrit 33.6 % (37-47); Hemoglobin 10.6 g/dL (12.0-15.0); Lymphocyte # 0.98 X10^3/ul (0.83-4.51); Lymphocyte % 9.6 % (19-41); Mean Corp Hgb Conc 31.5 g/dL (32-36); Mean Corpuscular Hgb 25.5 pg (27.0-32.0); Mean Platelet Vol. 8.9 fl (6.2-12.0); Monocyte# 0.61 X10^3/uL; NRBC Flagged by Analyzer 0 % (0-5); Neutrophil # 8.37 X10^3/uL (2.7-7.7); Neutrophil % 82.3 % (47-70); Platelet Count 377 K/mm3 (150-450); RBC Distribution Width CV 13.5 % (11.6-14.6); RBC Distribution Width SD 39.4 fl (35.1-43.9); Red Blood Count 4.15 M/mm3 (4.2-5.4); White Blood Count 10.2 K/mm3 (4.4-11.0)
[2022-06-22 18:25] LABS: Bacteria 0 SEEN /hpf (None Seen); Mucous, Urine 0 SEEN /hpf (<or=2+); Red Blood Cells-Urine 0 SEEN /hpf (0-5); White Blood Cells 0 SEEN /hpf (0-5)
[2022-06-22 18:26] LABS: Internal QC Validated? YES +Cl - CLEAR BKGD; Pregnancy, Serum, hCG Quali. NEGATIVE Negative
[2022-06-22 18:31] LABS: Anion Gap 6 (5-15); BUN 13 mg/dL (7-18); BUN/Creat Ratio 16.1 RATIO (10-20); Calcium,Total 8.7 mg/dL (8.5-10.1); Chloride 109 mmol/L (98-107); Creatinine, Serum 0.81 mg/dL (0.55-1.02); EST Glomerular Filtration Rate 82 mL/min (>60); Est Glom Filt Rate - Afr Amer 99 mL/min (>60); Estimated Creatinine Clearance 83.84 ml/min; Glucose 114 mg/dL (74-106); Potassium 3.8 mmol/L (3.5-5.1); Sodium Level 141 mmol/L (136-145)
[2022-06-22 18:36] LABS: Color, Urine Yellow (Yellow); Glucose, Dipstick Normal (Normal); Ketone-Dipstick Negative (Negative); Leukocyte Esterase-Dipstick Negative /ul (Negative); Nitrite-Dipstick Negative (Negative); Occult Blood-Urine 10 /ul (Negative); Protein-Dipstick Negative (Negative); Urine Bilirubin Dipstick Negative (Negative); Urine Clarity Clear (Clear); Urine Urobilinogen Normal (Normal)
[2022-06-22 18:42] LABS: Squamous Epithelial Cells - UA 0-5 SEEN /hpf (5-10)
[2022-06-22 19:06] VITALS: BP 133/78; PULSE 80; RESP 16; O2SAT 99
[2022-06-22 21:22] VITALS: PULSE 88; RESP 16
== END 2022-06-22 21:23 | disposition home or self-care (01) ==
PROVIDERS: Emergency Provider Emergency Medicine; PCP Family Medicine; Visit Provider Emergency Medicine
DX: N83.202 Unspecified ovarian cyst, left side (principal); R10.9 Unspecified abdominal pain; R11.2 Nausea with vomiting, unspecified
CPT/HCPCS: 74177; 80048; 81001; 84703; 85025; 96360; 99283; J7030; Q9967; A4216

== ENCOUNTER 2022-07-04 10:37 | Day surgery (SDC) | payer BC, SELFPAY ==
[2022-07-04] VITALS (8 sets, daily range): BP systolic 97–128; BP diastolic 61–73; PULSE 71–85; RESP 16–18; TEMP 36.4–37.4; O2SAT 96–99; BMI 26.6
--- NOTE | 2022-07-04 | COLBX_PTH ---
PATIENT: ABHI STEPHENS LOC: EN U#:[id number] AGE/SX: 42/F ROOM: RE07/04/[address]: Dr. Jay Valiente DO : 1980 BED: DIS: 07/04/2022 SPEC #: [id number] RECD: 07/04/22 12:30 STATUS: GEOVANY PEGGY #: [id number] VANESSA: 07/04/22 00:[address]: Jay Valiente DEPT: SURGICAL PATHOLOGY RECD BY: Susana Kaur ENTERED: 07/04/22 13:08 SP TYPE: COLON BX DONAVON DR: Dr. Kobe Espinosa DO Tissues: A - COLON BIOPSY B - COLON BIOPSY Procedures: Frozen Section (charge) Surgery Specimen Level IV HEADER OPERATION: Colonoscopy with biopsy and frozen section PRE-OP DIAGNOSIS: Colon was thickening TISSUE SUBMITTED: A ? Biopsy hepatic flexure mass, FS, B - Biopsy hepatic flexure FROZEN SECTION DIAGNOSIS A. Hepatic flexure mass, biopsy: Invasive adenocarcinoma. CAROLA:isabel 07/04/2022 Case has been reviewed in consultation with Dr. Anderson who concurs with the above diagnosis. IDC:AM MICROSCOPIC DIAGNOSIS A. Hepatic flexure mass, biopsy: Well-differentiated invasive adenocarcinoma. B. Hepatic flexure mass, biopsy: Well-differentiated invasive adenocarcinoma. CAROLA:isabel 07/06/2022 MICROSCOPIC DESCRIPTION Slides are reviewed. GROSS DESCRIPTION A - Received fresh for frozen section diagnosis labeled with the patient's name is a specimen designated hepatic flexure mass. The specimen consists of three irregular fragments of mckeon soft tissue that in aggregate measure 0.6 x 0.5 x 0.1 cm. The entire specimen is submitted for frozen section diagnosis in one cassette. / CAROLA:isabel 07/04/2022 B - Received in fixative is one container labeled with the patient's name and designated hepatic flexure. The specimen consists of multiple irregular fragments of light mckeon soft tissue that in aggregate measure 2.5 x 0.5 x 0.1 cm. The specimen is totally submitted in one cassette. / CAROLA:isabel 07/05/2022 TC:0 CPT: 07441 x2, 34205
[2022-07-04 11:01] LABS: Internal QC Validated? YES +Cl - CLEAR BKGD; Pregnancy, Urine Negative Negative
[2022-07-04] MEDS: Lactated Ringers 1,000 ML 15 ML IV (11:10)
--- NOTE | 2022-07-04 11:21 | PCM.HP.BLA ---
History and Physical Date of Admission: 07/04/22 ABHI STEPHENS, is a 42 F who presents to the office today for Initial consult. Abhi established with this clinic 06.23.22 following [facility] ED presentation 06.22.22 with worsening abdominal pain following IUD removal day prior. ?CT abd/pel 06.22.22?noting short segment colonic wall irregular thickening at hepatic flexure with mild associated inflammatory stranding and at least one prominent medial pericolonic lymph node raising suspicion for cancer with metastasis. FH colon cancer, stomach cancer Patient reports that her abdominal pain started 3-4 weeks ago with bloating and gas. Previous GI history of dysphagia and GERD that resolved with weight loss. No further GI PMH. Denies any diarrhea, constipation, or hematochezia. ROS Const Constitutional: No fatigue, fever(s), frequent falls, headache(s) or weight change ENT ENT: No headache(s) or difficulty swallowing Cardio Cardiology: No leg pain with exertion Gastro GI: Positive for abdominal pain, bloating and excessive flatus; No change in bowel habits, constipation, diarrhea, heartburn, difficulty swallowing, Vomiting blood/hematemesis, Blood in stool, nausea/dyspepsia or vomiting Musc Musculoskeletal: No abnormal gait, joint pain, back pain, joint swelling, muscle cramps, muscle weakness, numbness, stiffness, tingling, Arthritis, sciatica, leg pain at night or leg pain with exertion Skin Skin: No dry skin, lesions, itchy eyes or rash Neuro Neurology: No abnormal gait, dizziness, frequent falls, headache(s), numbness, tingling, tremor(s), Increased tone in limbs, paralysis or seizures Psych Psychiatric: No anxiety, No depression, No paranoia, No Behavioral Problems, No Compulsive Behavior, No hyperactivity, No inattentiveness, No obsessions/compulsions, No Temper Tantrums and No suicidal ideation Endo Endocrine: No fatigue or weight change Aller/Imm Allergy/Immunologic: No itchy eyes Rm/Lymp Hematologic/Lymphatic: Positive for easy bruising; No easy bleeding Exam Const General: cooperative and comfortable Nutritional Appearance: average body habitus and well nourished HENMD Head: normal to inspection Ears: hearing grossly normal bilaterally Nose: external nose normal Face and sinus: normal facial exam Mouth: oral mucosae normal Throat: posterior oropharynx normal Eyes General: appearance normal, both eyes and all related structures Neck Neck: normal visual inspection Chest Chest palpation & inspection: normal inspection of the chest and normal palpation of entire chest wall Resp Effort & Inspection: normal respiratory effort Auscultation: Bilateral: Clear to Auscultation Cardio Palpation: normal PMI Rate: regular rate Rhythm: regular rhythm GI Inspection: normal to inspection Auscultation: normal bowel sounds Percussion: normal to percussion Palpation: no hepatosplenomegaly Skin General: no rashes or lesions noted Neuro General: patient alert Extrem General: normal to inspection Psych Affect: normal affect Quality Reporting Tobacco Screening ([facility] 138) Smoking Status: Never smoker Assessment and Plan Assessment and Plan (1) Colon wall thickening: ?Status:?Acute ?Plan: Differential diagnosis for colonic wall thickening in the setting of cramping is ischemic colitis, remnants of colonic volvulus, internal hernia or colon malignancy.? She will undergo evaluation of her lower GI tract via colonoscopy.? She was explained alternatives, benefits, risk including not withstanding bleeding, infection, sepsis, perforation, need for emergent surgery and .? She will have an ASA of 1. ? ? ? Orders: Orders Colonoscopy 07/04/22 K63.9 - Disease of intestine, unspecified ? I have examined the patient and the H&P has been reviewed. There are no clinical changes since date of exam.
--- NOTE | 2022-07-04 12:49 | OP.COLON_ITS ---
Patient Name: Magnolia Vail Procedure Date: 07/04/2022 11:58 AM Date of : 1980 Age: 42 Procedure: Colonoscopy Indications: Periumbilical abdominal pain, Abnormal CT of the GI tract Providers: Jay Valiente DO Medicines: Monitored Anesthesia Care Patient Profile: This is a 42 year old female. Refer to note in patient chart for documentation of history and physical. Last Colonoscopy: none. The patient's first colonoscopy is today. Complications: No immediate complications. Procedure: Pre-Anesthesia Assessment: - Prior to the procedure, a History and Physical was performed, and patient medications and allergies were reviewed. The patient is competent. The risks and benefits of the procedure and the sedation options and risks were discussed with the patient. All questions were answered and informed consent was obtained. Patient identification and proposed procedure were verified by the physician. Mental Status Examination: alert and oriented. Airway Examination: normal oropharyngeal airway and neck mobility. Respiratory Examination: clear to auscultation. CV Examination: normal. Prophylactic Antibiotics: The patient does not require prophylactic antibiotics. Prior Anticoagulants: The patient has taken no previous anticoagulant or antiplatelet agents. ASA Grade Assessment: II - A patient with mild systemic disease. After reviewing the risks and benefits, the patient was deemed in satisfactory condition to undergo the procedure. The anesthesia plan was to use moderate sedation / analgesia (conscious sedation). Immediately prior to administration of medications, the patient was re-assessed for adequacy to receive sedatives. The heart rate, respiratory rate, oxygen saturations, blood pressure, adequacy of pulmonary ventilation, and response to care were monitored throughout the procedure. The physical status of the patient was re-assessed after the procedure. After I obtained informed consent, the scope was passed under direct vision. Throughout the procedure, the patient's blood pressure, pulse, and oxygen saturations were monitored continuously. The colonoscope was introduced through the anus and advanced to the hepatic flexure. The colonoscopy was performed without difficulty. The patient tolerated the procedure well. The quality of the bowel preparation was good. Scope In: 12:15:03 PM Scope Out: 12:34:34 PM Total Procedure Duration Time 0 hours 19 minutes 31 seconds Findings: The perianal and digital rectal examinations were normal. A malignant-appearing, intrinsic severe stenosis was found at the hepatic flexure and was non-traversed. Biopsies were taken with a cold forceps for histology. Verification of patient identification for the specimen was done. Estimated blood loss was minimal. An ulcerated partially obstructing large mass was found at the hepatic flexure. The mass was circumferential. In addition, its diameter measured five mm. No bleeding was present. This was biopsied with a cold forceps for histology. Verification of patient identification for the specimen was done. Estimated blood loss was minimal. Area was successfully injected with 5 mL Spot (carbon black) for tattooing. Estimated blood loss was minimal. Impression: - Stricture at the hepatic flexure. Biopsied. - Malignant partially obstructing tumor at the hepatic flexure. Biopsied. Injected. - Malignant-appearing tumor in the colon. Removal was not done. Biopsied. Recommendation: - Discharge patient to home. - Resume previous diet. - Continue present medications. - Await pathology results. - Repeat colonoscopy for surveillance based on personal history of colon cancer. Procedure Code(s): --- Professional --- 07828, 52, Colonoscopy, flexible; with biopsy, single or multiple 32999, 52, Colonoscopy, flexible; with directed submucosal injection(s), any substance CPT copyright 2017 [employer]. All rights reserved. The codes documented in this report are preliminary and upon industrial ecology technician review may be revised to meet current compliance requirements. Jay Valiente DO 07/04/2022 12:49:15 PM This report has been signed electronically. Number of Addenda: 0 Note Initiated On: 07/04/2022 11:58 AM
--- NOTE | 2022-07-04 12:50 | OP.CCLET_ITS ---
07/04/2022 Kobe Espinosa [address] [facility] [place] [address] Re : Colonoscopy procedure for Magnolia Vail Dear Dr. Espinosa This procedure was performed on Monday, July 04, 2022. My impressions and recommendations are as follows: Impressions : - Stricture at the hepatic flexure. Biopsied. - Malignant partially obstructing tumor at the hepatic flexure. Biopsied. Injected. - Malignant-appearing tumor in the colon. Removal was not done. Biopsied. Recommendations : - Discharge patient to home. - Resume previous diet. - Continue present medications. - Await pathology results. - Repeat colonoscopy for surveillance based on personal history of colon cancer. My findings are described in the full procedure note, which is enclosed. If I can be of further assistance, please feel free to contact me at . Sincerely, Jay Valiente, 07/04/2022 12:49:15 PM This report has been signed electronically.
== END 2022-07-04 13:40 | disposition home or self-care (01) ==
LOC: EN 10:38 → AC 10:40
PROVIDERS: Anesthesiology; PCP Family Medicine; Referring Provider Family Medicine; Visit Provider Internal Medicine Gastroenterology
PROC: 0DJD8ZZ Inspection of Lower Intestinal Tract, Via Natural or Artificial Opening Endoscopic (ICD-10-PCS; CPT 45378; principal; 2022-07-04 11:55)
DX: C18.3 Malignant neoplasm of hepatic flexure (principal); K56.609 Unspecified intestinal obstruction, unspecified as to partial versus complete obstruction; Z80.0 Family history of malignant neoplasm of digestive organs
CPT/HCPCS: 45380; 45381; 81025; 88305; 88331; J7120; A4648; J2405

== ENCOUNTER → 2022-07-20 | Outpatient (CLI) | payer BC, SELFPAY ==
--- NOTE | 2022-07-20 14:51 | CT_ITS ---
INDICATION: COLON CANCER STAGING EXAMINATION: CT CHEST WITH CONTRAST - CT Chest W/ Contrast Injection TECHNIQUE: Helically acquired images were obtained of the chest following IV contrast. A radiation dose optimization technique was used for this scan. IV Contrast dosage and agent: COMPARISON: None. FINDINGS: LUNGS, PLEURA AND LARGE AIRWAYS: No masses, consolidation, or edema. No pleural effusion or thickening. No pneumothorax. THYROID: No thyroid lesions. HEART AND PERICARDIUM: Heart size is normal. No pericardial effusion. VESSELS: Thoracic aorta is not dilated. No aortic dissection. No obvious central pulmonary embolism although this study was not performed with the pulmonary embolism protocol. MEDIASTINUM AND JAVIER: No mediastinal or hilar adenopathy. Esophagus is unremarkable. No hiatal hernia. UPPER ABDOMEN: No acute pathology. BONES: No suspicious lytic or blastic abnormality. CT/Chest WITH Contrast IMPRESSION: Negative contrast enhanced CT of the chest. No CT evidence metastatic disease. Electronically Signed: Benitez Cotto MD at 10:51 EST ,
== END | disposition home or self-care (01) ==
LOC: CT 14:50
PROVIDERS: PCP Family Medicine; Referring Provider Internal Medicine Medical Oncology; Visit Provider Internal Medicine Medical Oncology
DX: C18.9 Malignant neoplasm of colon, unspecified (principal)
CPT/HCPCS: 71260; Q9967

== ENCOUNTER 2022-07-25 16:44 | Inpatient (IN) | payer BC, SELFPAY ==
--- NOTE | 2022-07-25 16:58 | HP.PCM_ITS ---
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 H/O Moh's micrographic surgery for skin cancer History of dilation and curettage (~2006) Family History? MotherHypertensionBrother HypertensionAunt?? Breast cancerAunt Breast cancerGrandfather Cancer ?? ? prostateUncle Cancer ?? ? possible colon ?? ?Grandmother Cancer ?? ? cancer in digestive Social History? Smoking Status:? Never smoker alcohol intake:? current alcohol intake frequency: a few times a month Alcohol type: wine substance use type:? does not use frequency:? 5-6 times per week HPI HPI HPI: 42-year-old female.? She has been ill since mid June.? She presented with lower abdominal pain the day after Dr. Monsivais removed an IUD.? Clinically this d id not seem to be related to her uncomplicated IUD removal.? The patient was referred to the emergency room and this occurred on June 22, 2022.? CT imaging was done suggesting narrowing of the bowel wall at the hepatic flexure.? There was associated inflammatory stranding.? There is a medial pericolonic lymph node.? There was felt to be a 3.7 cm left adnexal cyst. The patient was seen by Dr. Valiente the following day and then on July 04 Dr. Valiente did a colonoscopy demonstrating a near totally obstructing hepatic flexure mass with biopsy showing invasive adenocarcinoma. The patient saw Dr. Bryant Mao on July 12.? At that time the patient had requested to be referred to [facility] because she had heard through friends of folks having a good result there.? With increasing nausea and pain she went down to the emergency room and [facility] on July 20, 2022.? Apparently they did a CT scan of which I do not have the results.? They suggested to her that she had colitis and that her problem was not obstructing colon cancer and recommended to her oral antibiotics.? There was some discussion about admission but she states that she was told that there would be no guarantees that there would be a surgical consult to help her.? With that in mind she returned home.? For couple days she felt better however her diet has been minimal and mostly liquids.? Apparently within the past couple days she has had severe nausea vomiting.? She has had significant lower abdominal pain.? She was not able to take the ciprofloxacin and metronidazole that she was prescribed yesterday or today.? She was seen by Dr. Bryant Mao today and has been sent to my office emergently as it is not felt that she can now wait for an elective future [facility] surgical appointment. On presentation the patient is noting previous left upper quadrant pain and lower abdominal pain.? Nausea vomiting yesterday.? Poor oral intake.? No fever.? She feels that her abdomen is distended.? She generally feels very unwell For colon cancer staging on July 20, [address] the [address] a CT scan of the chest which was negative for metastatic disease ROS General General:?Yes weight change, fatigue and colon cancer; No appetite, breast cancer or weakness HEENT HEENT:?No difficulty swallowing, eye injury, eye surgery, swollen glands or hoarseness Endo Endocrine:?No thyroid disease, diabetes mellitus, thyroid cancer, Hair loss, heat intolerance or cold intolerance Skin Skin:?No rash or changing moles Breast Breast:?No left breast lump, right breast lump, nipple discharge, breast pain, abnormal mammogram, abnormal US or breast enlargement Musc Musculoskeletal:?No back problems, arthritis, rheumatoid arthritis, gout or joint pain Cardio Cardiovascular:?No murmur, pacemaker, heart disease, atrial fibrillation, high blood pressure, heart attack, heart stent, palpitations, shortness of breat with exertion or chest pain Psych Psychiatric:?No depression, anxiety or hearing voices Resp Respiratory:?No shortness of breath, No sleep apnea, No cough, No COPD, No asthma, No emphysema and No wheezing Gastro Gastrointestinal:?Yes abdominal pain, Yes nausea or vomiting, Yes diarrhea, Yes constipation, No blood in stool, Yes acid reflux, No hemorrhoids, No ulcers, No gallbladder problem and No black,tarry stools Rm Hematologic:?No blood thinners, No blood disorders, No bleeding, No anemia and No blood clots Neuro Neurologic:?No system reviewed and no additional complaints, except as documented, No as per HPI, No abnormal gait, No abnormal hearing, No abnormal movements, No abnormal speech, No behavioral changes, No burning sensations, No confusion, No convulsions, No disequilibrium, No dizziness, No localized weakness, No frequent falls, No headache(s), No lack of coordination, No loss of vision, No memory loss, No numbness, No other visual disturbances, No radicular pain, No restless legs, No sensory deficit, No syncope, No tingling, No tremor(s), No weakness and No other Exam Const General:?cooperative Nutritional Appearance:?average body habitus Orientation:?alert and awake Other: Patient appears unwell and fatigued [facility] Head:?normal to inspection Eyes General:?appearance normal, both eyes and all related structures Neck Neck:?normal visual inspection Chest Chest palpation & inspection:?normal inspection of the chest Resp Effort & Inspection:?normal respiratory effort Auscultation:?clear to auscultation bilaterally Cardio Rate:?regular rate Rhythm:?regular rhythm GI Palpation:?soft Other: Distended, tenderness to light palpation right lower quadrant right mid abdomen, no mass palpable, bowel sounds present with tinkles and occasional rushes Musc Cervical Spine:?normal cervical lordosis Skin General:?no rashes or lesions noted Neuro General:?patient alert, patient awake and patient oriented x3 Extrem General:?no calf tenderness Psych Appearance:?grossly normal Assessment and Plan Assessment and Plan (1) Colon cancer high risk: ?Status:?Acute (2) Colon cancer: ?Status:?Acute ?Comment: Hepatic flexure mass-adenocarcinoma, Clinically no evidence of metastatic disease. CEA 140. Has episodes of abdominal pain, vomiting. Discussed surgical management, Pt will? see Dr. Joseph. ?Plan: 42-year-old female who is presenting now with signs and symptoms of a near complete if not completed large bowel obstruction at the hepatic flexure secondary to biopsy-proven colon cancer.? She is uncomfortable with inability to take oral intake with nausea vomiting and abdominal pain.? She feels that she can no longer wait for an elective surgical appointment scheduled later this month at the [facility].? She has been urgent surgical care. Based upon her clinical deterioration I recommend hospitalization with IV fluid replacement and NG tube decompression.? I have encouraged patient mobilization.? We will not be able to perform a bowel prep.? We will not be able to perform an ERAS protocol.? I propose for her a exploratory laparoscopy with plan bilateral transabdominal plane block and right colectomy.? The patient is very much aware that due to the bowel obstruction I may not to be able to accomplish this either laparoscopically or with hand-assisted and that this may very well require an open approach.? In detail I discussed the technique, benefit risk complications and alternatives.? The patient is well aware of the increased current risk secondary to the evolution of the bowel obstruction and her known anemia and her clinical deterioration. I have personally reviewed her CT imaging and note that she has an enlarged right pelvic cystic structure in addition to a smaller but thick walled left pelvic cystic structure.? I have personally contacted Dr. Heath Monsivais the patient's TRANSFORMER BUILDER asking him to review the imaging.? The patient does have a significant mount of pelvic pain however due to the extent of the anticipated colonic surgery I am not anticipating that combined pelvic surgery will be feasible.? I have asked whether anything diagnostic should be performed at the setting of my planned surgery.? The patient is additionally aware that a simple ileostomy diversion might be required pending the degree of the obstruction and findings identified.? There is significant amount of pericolonic stranding likely tumor related and I do not have evidence to suggest that this is a colitis but much more likely pericolonic tumor inflammatory changes.? The patient has an elevated CEA level of 140 which is markedly abnormal. She has had an opportunity to ask and have questions answered.? We will hospita lize her and proceed with medical resuscitation. I appreciate the opportunity of assisting with her surgical care Copy: Dr. Kobe Espinosa and Dr. Bryant Mao and Dr. Heath Joseph M.D., F.A.C.S.
[2022-07-25 17:36] VITALS: BMI 25.0
[2022-07-25 17:39] VITALS: BP 121/78; PULSE 79; RESP 18; TEMP 37.1; O2SAT 97
[2022-07-25] MEDS: Lactated Ringers 1,000 ML 125 ML IV (18:01)
[2022-07-25] MEDS: Benzocaine 20% Metered Spray 57 gm 1 APPLIC MUCOUS MEM (18:02)
[2022-07-25 18:08] LABS: Absolute Lymphocyte Count 1.62 X10^3/uL (0.83-4.51); Absolute Neutrophil Count 5.6 X10^3/uL (2.0-7.7); Basophil# 0.02 X10^3/uL; Basophil% 0.3 % (0-1); Eosinophil# 0.11 X10^3/uL; Eosinophils% 1.4 % (0-5); Hemoglobin 11.6 g/dL (12.0-15.0); Lymphocyte # 1.62 X10^3/ul (0.83-4.51); Lymphocyte % 20.3 % (19-41); Mean Corp Hgb Conc 32.2 g/dL (32-36); Mean Corpuscular Hgb 25.7 pg (27.0-32.0); Mean Corpuscular Volume 79.8 fL (81-99); Mean Platelet Vol. 8.5 fl (6.2-12.0); Monocyte# 0.59 X10^3/uL; Monocyte% 7.4 % (0-10); NRBC Flagged by Analyzer 0 % (0-5); Neutrophil # 5.61 X10^3/uL (2.7-7.7); Neutrophil % 70.3 % (47-70); Platelet Count 420 K/mm3 (150-450); RBC Distribution Width CV 13.6 % (11.6-14.6); RBC Distribution Width SD 39.4 fl (35.1-43.9); Red Blood Count 4.51 M/mm3 (4.2-5.4)
--- NOTE | 2022-07-25 18:40 | RAD_ITS ---
INDICATION: verify NG placement EXAMINATION/TECHNIQUE: X-RAY - XR Abdomen 1 View COMPARISON: None FINDINGS: BOWEL GAS PATTERN: Non-obstructive. NG tube is seen with tip in the distal esophagus. FREE AIR: Not assessed on a single supine view. ORGANOMEGALY: Not seen. CALCIFICATIONS: No abnormal calcifications observed. LOWER CHEST: No acute pathology. BONES AND SOFT TISSUES: No acute pathology. RAD/Abdomen Single View (Portable) IMPRESSION: NG tube is seen with tip in the distal esophagus. Recommend advancement by at least 16 cm. Electronically Signed: Priyank Ramirez MD at 19:22 EST ,
[2022-07-25 18:42] LABS: ALB/GLOB Ratio 0.9 RATIO (0.9-2.4); AST(SGOT) 13 U/L (15-37); Alanine Aminotransfer ALT/SGPT 23 U/L (13-56); Albumin, Serum 3.7 g/dL (3.2-5.0); Alkaline Phosphatase 52 U/L (45-117); Anion Gap 7 (5-15); BUN 13 mg/dL (7-18); BUN/Creat Ratio 15.4 RATIO (10-20); Calcium,Total 8.6 mg/dL (8.5-10.1); Chloride 109 mmol/L (98-107); Creatinine, Serum 0.84 mg/dL (0.55-1.02); EST Glomerular Filtration Rate 78 mL/min (>60); Est Glom Filt Rate - Afr Amer 95 mL/min (>60); Estimated Creatinine Clearance 87.11 ml/min; Globulin 3.9 g/dL (2.2-4.2); Glucose 90 mg/dL (74-106); Potassium 3.3 mmol/L (3.5-5.1); Protein, Total 7.6 g/dL (6.4-8.2); Sodium Level 140 mmol/L (136-145)
--- NOTE | 2022-07-25 18:44 | RAD_ITS ---
INDICATION: NG verification -- #2 EXAMINATION/TECHNIQUE: X-RAY - XR Abdomen 1 View COMPARISON: 07/25/2022 FINDINGS: BOWEL GAS PATTERN: Non-obstructive. Interval advancement of NG tube with tip now in the stomach. FREE AIR: Not assessed on a single supine view. ORGANOMEGALY: Not seen. CALCIFICATIONS: No abnormal calcifications observed. LOWER CHEST: No acute pathology. BONES AND SOFT TISSUES: No acute pathology. RAD/Abdomen Single View (Portable) IMPRESSION: Interval advancement of NG tube with tip now in the stomach. Electronically Signed: Priyank Ramirez MD at 19:23 EST ,
[2022-07-25] MEDS: Ondansetron 4 MG/2 ML Vial IV (19:10)
[2022-07-25] MEDS: Potassium Chloride 10mEq/100mL 10 MEQ/100 ML IV.SOLN. 100 MEQ IV BOLUS ×4 (20:29→23:53)
[2022-07-26] VITALS (14 sets, daily range): BP systolic 101–151; BP diastolic 45–86; PULSE 72–89; RESP 16–20; TEMP 36.7–37.4; O2SAT 95–100; BMI 26.6
--- NOTE | 2022-07-26 | IMM_PTH ---
PATIENT: ABHI STEPHENS LOC: MS3 U#:[id number] AGE/SX: 42/F ROOM: [facility] [place] RE07/25/[address]: Dr. Spencer Joseph MD : 1980 BED: 1 DIS: 07/29/2022 SPEC #: [id number] RECD: 07/31/22 14:11 STATUS: GEOVANY REQ #: [id number] VANESSA: 07/26/22 00:[address]: Spencer Joseph DEPT: IMMUNOHISTOCHEMISTRY RECD BY: Susana Kaur ENTERED: 07/31/22 14:12 SP TYPE: IMMUNO OTHR DR: Dr. Kobe Espinosa DO Tissues: Right colon Procedures: MLH-1 (add) MSH6 (add) Anti-PMS2 (add) MSH2 (initial) PHYSICIAN & INSTITUTION [place] [phone] SPECIMEN INFORMATION: Tissue Source: Right colon Clinical Info: Colon cancer Specimen Number: [id number] #6 CPT code: 12120, 49967 x3 METHODOLOGY: Deparaffinized sections of prefer/formalin-fixed tissue or PAP/DQ stained slides are incubated with monoclonal/polyclonal antibodies/oligonucleotide probes. Localization is made via biotin free immunoperoxidase method. Appropriate controls are performed and reacted as expected. Results on target cell population are indicated in the following table: RESULTS: ANTIBODY / CLONE RESULT Block 6 MLH-1 (M1) positive MSH2 (25D12) positive MSH6 (44) positive PMS2 ([id number]) positive These tests were developed and their performance characteristics determined by [facility]. They may not have been cleared or approved by the U.[place]. Food and Drug Administration. The FDA has determined that such clearance or approval is not necessary. The above immunohistochemical/dualISH markers are ordered and reviewed by the Pathologist. INTERPRETATION: Right colon, colectomy: Invasive adenocarcinoma. Result of Microsatellite Instability Study: Negative (no loss of mismatch protein; no microsatellite instability detected). AM:isabel 08/01/2022
[2022-07-26] MEDS: Lactated Ringers 1,000 ML 125 ML IV ×5 (01:04→19:23)
--- NOTE | 2022-07-26 06:19 | PN.SURG_ITS ---
Subjective Subjective Patient states that she has had 2 very small amounts of flatus. Prior to admission she had not done this for 2 days. She has had no stool per rectum. Her abdomen is feeling better. Still painful particularly right lower quadrant. Objective Data Objective Data Vital Signs: Vital Signs Temp Pulse Resp BP Pulse Ox O2 Del Method 98.7 F 89 18 137/86 H 97 Room Air 07/26/22 00:00 07/26/22 00:00 07/26/22 00:00 07/26/22 00:00 07/26/22 00:00 07/26/22 00:00 Oxygen Delivery Method Room Air Weight: 165 lb Body Mass Index (BMI) 25.0 Intake & Output: Intake and Output for Last 24 Hours 07/24/22 07/25/22 07/26/22 23:59 23:59 23:59 Intake Total 345.00 / 345.00 981.25 / 981.25 Output Total 50 / 50 Balance 345.00 / 295.00 931.25 / 931.25 Lab / Micro Data Result Diagrams: 07/25/22 17:24 07/25/22 17:24 Labs: Laboratory Results - last 24 hr 07/25/22 17:24: WBC 8.0, RBC 4.51, Hgb 11.6 L, Hct 36.0 L, MCV 79.8 L, MCH 25.7 L, MCHC 32.2, RDW Std Deviation 39.4, RDW Coeff of Nazanin 13.6, Plt Count 420, MPV 8.5, Immature Gran % (Auto) 0.300, Neut % (Auto) 70.3 H, Lymph % (Auto) 20.3, [place] % (Auto) 7.4, Eos % (Auto) 1.4, Baso % (Auto) 0.3, Absolute Neuts (auto) 5.6, Absolute Lymphs (auto) 1.62, Nucleated RBC % 0 07/25/22 17:24: Sodium 140, Potassium 3.3 L, Chloride 109 H, Carbon Dioxide 24.0, Anion Gap 7, BUN 13, Creatinine 0.84, Estim Creat Clear Calc 87.11, Est GFR (MDRD) Af Amer 95, Est GFR (MDRD) Non-Af 78, BUN/Creatinine Ratio 15.4, Glucose 90, Calcium 8.6, Total Bilirubin 0.50, AST 13 L, ALT 23, Alkaline Phosphatase 52, Total Protein 7.6, Albumin 3.7, Globulin 3.9, Albumin/Globulin Ratio 0.9 Radiography Diagnostic Testing: Radiology Impression KUB X-Ray 07/25/22 18:40 IMPRESSION: NG tube is seen with tip in the distal esophagus. Recommend advancement by at least 16 cm. Electronically Signed: Priyank Ramirez MD at 19:22 EST , KUB X-Ray 07/25/22 18:44 IMPRESSION: Interval advancement of NG tube with tip now in the stomach. Electronically Signed: Priyank Ramirez MD at 19:23 EST , Physical Exam Narrative Patient generally appears to be less uncomfortable than yesterday. She has been able to ambulate. Const oriented x3 and no apparent distress Resp normal respiratory effort GI GI Narrative: Slightly softer, less tender throughout with persistent tenderness right lower quadrant. Bowel sounds present with rushes Assessment & Plan Assessment/Plan (1) Colon cancer: PLAN: Hepatic flexure colon cancer with very high-grade near-total obstruction. I had the opportunity last night to discuss the patient's presentation with Dr. Heath Monsivais BREADING MACHINE TENDER. He reviewed her previous CT scan and also an ultrasound that they obtained and he feels that both ovarian cysts are benign. It is difficult to know how much of her lower abdominal pain is secondary to the ovarian findings. She is aware that we will explore this hopefully at the time of her surgery and consider drainage to help eliminate this as a potential confuse her regarding abdominal pain problems. Her abdomen seems slightly less distended than yesterday. I am hopeful that I can do a larger portion of this procedure laparoscopically. She has had an opportunity to ask and have questions answered. OR schedule today is still pending. Spencer Joseph M.D., F.A.C.S. (2) Colon cancer high risk:
[2022-07-26 06:39] LABS: Anion Gap 5 (5-15); BUN 10 mg/dL (7-18); BUN/Creat Ratio 14.4 RATIO (10-20); Calcium,Total 8.1 mg/dL (8.5-10.1); Chloride 109 mmol/L (98-107); Creatinine, Serum 0.69 mg/dL (0.55-1.02); EST Glomerular Filtration Rate 98 mL/min (>60); Est Glom Filt Rate - Afr Amer 119 mL/min (>60); Estimated Creatinine Clearance 106.05 ml/min; Glucose 96 mg/dL (74-106); Potassium 3.6 mmol/L (3.5-5.1); Sodium Level 138 mmol/L (136-145)
[2022-07-26] MEDS: Ondansetron 4 MG/2 ML Vial IV (06:58)
[2022-07-26] MEDS: 0.9% Saline Lock 10 ML Syringe IV (06:58)
--- NOTE | 2022-07-26 09:47 | CASEMGMT ---
Addendum entered by Bhakti Blanc 07/26/22 09:54: Pt reports her sister is flying in from [place] to stay with her post surgery. Original Note: HAYDEN JAIME Assessment: Face to Face with pt for initial transition planning/care coordination assessment. HAYDEN JAIME introduced self and role at [facility], pt voices understanding and consents to assessment. Pt is A/O x4 and answers all questions appropriately at this time. Pt lying in bed in no distress with NG in. Care providers, pharmacy, and demographics verified/updated. Admitting Dx: complete colonic obstruction PCP:Francisca Specialists:JakeOR; Friend, GI; Loi, FUR DRESSING SUPERVISOR Preferred Pharmacy: [facility] Retail Insurance: [employer] Prescription Benefit: yes LNOK: Venessa Greene, friend Living Arrangements: Pt lives with 2 children in a story and a half home with one step to enter. Pt reports she is I in ADL's and denies concerns at home. Transportation: Pt drives self and denies concerns with transportation. DME/HHC/SNF: Pt denies having any DME in the home, previous HHC or SNF stays. Pt states no concerns with going home at time of dc. Pt states no further concerns/needs. CM to follow. Advised pt to ask CM if any further question/concerns/needs arise, voices understanding. Pt Goal: Home Plan: Home
[2022-07-26] MEDS: BENZOCAINE/MENTHOL 1 LOZENGE 2 LOZENGE MUCOUS MEM (10:31)
--- NOTE | 2022-07-26 12:00 | NURSING ---
Patient off the floor for surgery. Both IV antibiotics sent to surgery. Urine sent to Lab.
[2022-07-26 13:01] LABS: Internal QC Validated? YES +Cl - CLEAR BKGD; Pregnancy, Urine Negative Negative
[2022-07-26] MEDS: Clindamycin 900 MG/50 ML BAG 75 MG IV (13:17)
--- NOTE | 2022-07-26 14:30 | COL._PTH ---
PATIENT: ABHI STEPHENS LOC: MS3 U#:[id number] AGE/SX: 42/F [place] [facility] RE07/25/[address]: Dr. Spencer Jsoeph MD : 1980 BED: 1 DIS: 07/29/2022 SPEC #: [id number] RECD: 07/26/22 16:00 STATUS: GEOVANY WOODS #: [id number] VANESSA: 07/26/22 14:[address]: Spencer Joseph DEPT: SURGICAL PATHOLOGY RECD BY: Albina Lewis ENTERED: 07/27/22 09:56 SP TYPE: COLON OTHR DR: Dr. Kobe Espinosa, DO Tissues: Colon, NOS Procedures: Surgery Specimen Level HEADER OPERATION: Exploratory laparoscopy, bilateral TAP block PRE-OP DIAGNOSIS: Colon cancer TISSUE SUBMITTED: Extended right colectomy MICROSCOPIC DIAGNOSIS Right colon, right colectomy: Invasive adenocarcinoma. See cancer synoptic report below. AM:isabel 07/31/2022 COMMENT COLON CANCER SUMMARY Procedure: Right colectomy Tumor site: Right colon Tumor size: 5 x 3.5 x 1.5 cm Macroscopic tumor perforation: Not identified Histologic type: Adenocarcinoma Histologic grade: G1 to G3 (well, moderately and poorly differentiated) Tumor extension: Tumor invades pericolic fatty tissue. Margins: All margins are uninvolved by invasive carcinoma, high grade dysplasia or adenoma. Margins examined: Proximal, distal, and serosal Treatment effect: Unknown Lymphvascular invasion: Not identified Perineural invasion: Not identified Lymph nodes: 12 out of 12 lymph nodes, negative for carcinoma. Tumor deposits: Present (one deposit; 12.0 mm in diameter) Ancillary studies: See microsatellite instability study by IHC ([id number]) for complete details. Negative (no loss of mismatch protein; no microsatellite instability detected). Additional pathologic findings: None PATHOLOGIC STAGE: T3 N1c Mx The above summary is in compliance with [employer] [place] [employer] (CAP) Cancer Protocols Checklist and [place] Joint Committee on Cancer (AJCC), Staging Manual, 8th Ed. Case has been reviewed in consultation with Dr. Pimentel who concurs with the above diagnosis. IDC:SJ MICROSCOPIC DESCRIPTION Slides are reviewed. GROSS DESCRIPTION Received in fixative is one container labeled with the patient's name and designated extended right hemicolectomy. The specimen consists of an extended right hemicolectomy consisting of cecum with ascending colon and transverse colon and small segment of small intestine and appendix. The cecum with ascending colon, transverse colon measures 43 cm in length. Segment of small intestine measures 6 cm in length and appendix measures 5 cm in length and 0.5 cm in diameter. The omentum measures 20 x 9 x 1 cm. 8 cm away from the distal resection margin there is a circumferential tumor mass measuring 5 x 3.5 x 1.5 cm. The serosal surface overlying the tumor shows light discoloration. The tumor involves the full thickness of the bowel wall. The lumen proximal to the tumor shows large amount of solid and liquified fecal material. The colon is dilated proximal to the tumor measuring up to 8 cm in diameter. No additional lesions are identified. Sections will be submitted after fixation. The pericolonic adipose tissue is fixed in lymph node revealing solution. / SJ:isabel 07/27/2022 Also present in the container is a donut-shaped piece of tissue measuring 2.5 x 1 x 0.2 cm. Sections of the appendix do not reveal any mass lesion and reveals a pinpoint lumen. Sections of the tumor reveal full thickness of the bowel wall. Sections of omentum do not reveal any mass lesion. Sections of pericolonic adipose tissue reveal multiple lymph nodes. The largest lymph node measures 1.5 cm in greatest dimension. Oil Well Drilling Manager sections are submitted as follows: 1 - donut-shaped piece of tissue, 2 - proximal and distal resection margin, 3 - appendix, 4-7 - tumor, 8 - ileocecal valve, 9 - omentum and one bisected lymph node, 10 - one serially sectioned lymph node, 11 - one bisected lymph node, 12 - one serially sectioned lymph node, 13 - one serially sectioned lymph node, largest lymph node, 14 - one bisected lymph node, 15 - one bisected lymph node, 16 - multiple lymph nodes, 17 & 18 - each cassette containing one possible serially sectioned lymph node. / SJ:isabel 07/28/2022 TC:0 CPT: 15629
[2022-07-26] MEDS: 0.9% Normal Saline (Pres. free 10 ML Vial (14:45)
[2022-07-26] MEDS: BUPIVACAINE LIPOSOME/PF 20 ML VIAL OPERA.SITE (16:45)
--- NOTE | 2022-07-26 16:54 | PCM.OPRPT ---
Report of Operation Date of Procedure: 07/26/22 Pre-Operative Diagnosis: Hepatic flexure obstructing colon cancer Post-Operative Diagnosis: Proximal mid transverse colon obstructing colon cancer with gross distention of the cecum and ascending colon Surgery/Procedure Performed:: Laparoscopy with bilateral laparoscopic transabdominal plane block and laparoscopic complete mobilization of the right colon with his securing the ileocolic vessels with subsequent completion with hand-assisted mobilization of the right colon into an extended right colectomy with ileal colostomy anastomosis Description of Surgical Findings:: Timeout informed consent was obtained. 42-year-old female was taken to the operating placed on the table underwent general endotracheal ovation esthesia clindamycin 900 mg and gentamicin 3 to 20 mg were given intravenously. The abdomen was sterilely prepped and draped. A vertical incision was made superior to the umbilicus due to her very long torso. Where needed 20 cc of Exparel mixed with 30 cc of 0.5% Marcaine diluted to 100 cc was used for local anesthetic holding sutures 0 Vicryl placed varies needle inserted saline drop test performed the abdomen was insufflated CO2 to a pressure of 12 mmHg pressure 10 Monsivais trocar inserted 10 laparoscope inserted no evidence or trocar injuries there is any ink marking of the mid to mid mid to mid proximal transverse colon. The right colon was grossly distended. Small bowel more mildly distended. I transected the gastrocolic omentum from the left of the midportion of the transverse colon all the way to the hepatic flexure than release the white line of Toldt using the robotic scalpel released the terminal ileum. I then was able to raise the right colon identify the ileocolic vessels I dissected this free bluntly and then secured them with 2 Hem-o-hector clips proximally distally prior to transecting them with the harmonic scalpel. At this point due to the gross distention of the right colon could not further manipulate it so I lengthen the supraumbilical incision vertically to 7 cm placed a hand port placed Mahaney and and then did some blunt dissection to further free the right colon and elevated it through the wall the skin is clean exposure to the remaining mesentery of the right colon which I transected using harmonic scalpel all the way over to the middle colic's the middle colic so again secured proximally and distally with large Hem-o-hector clips prior to using amount of scalpel to transect. I had the entire specimen now mobilized past the end the marking past the clear tumor that was obstructing the colon. Transected the colon and the small bowel with 75 mm BRODY stapler. Placed the bowel side to side but holding sutures of 4-0 silk made enterotomies placed the BRODY stapler ends and fashion created a cytocide anastomosis creating a functional ileocolonic anastomosis. I placed a crotch suture of 4-0 silk. Then closed the enterotomy sites with a TA 60. I then were possible inverted the staple lines with a running 4-0 silk Lembert suture with some of the adherent omentum. Closed the mesenteric trap with a running 4-0 silk. Both the large and small bowel appear to be viable and healthy. Back within the abdomen. Gowns and gloves were changed the midline wound was closed with a running #1 PDS the abdomen was reinsufflated and anastomosis was noted be wonderfully intact and was resting in the left upper mid abdomen. I placed the greater omentum overlying the small bowel and a thin incision. Hemostasis was nicely intact. I additionally inspected the pelvis and could not identify any current ovarian cysts and assume those were resorbed. This visit was immediately sent in formalin for analysis. It is of note that at the very start of the procedure before doing a colectomy I did a bilateral transabdominal plane block using the local anesthetic and laparoscopic control. Any left over local again was used anesthetize the port sites in the midline site. I placed a 5 mm port in the right lower quadrant and a 5 mm port in the left epigastric area in addition to the 10 mm port in the supraumbilical vertical midline area to accomplish entire procedure. All wounds were closed with interrupted and running subcuticular 4-0 Monocryl. Steri-Strips Telfa tape dressings applied. Sponge and instrument and needle counts were reported to the surgeon to be correct. Specimen extended right colon. Drains none. Blood loss 100 cc. The patient was taken to the recovery room in satisfied condition without apparent complication Spencer Joseph M.D., F.A.C.S. Surgeon: Spencer Joseph Type of Anesthesia: General and Local Anesthesiologist: Natalie Moser
--- NOTE | 2022-07-26 18:36 | SUR.PHASEI ---
PACU: INTRACTABLE NAUSEA SINCE ARRIVAL FROM O.R., PHENERGAN 12.5 MG IV GIVEN PER SAIDA VU, AFTER PACU ARRIVAL, NGT PLACEMENT VERIFIED PER AUSCULTATION, PLACED TO [facility]. SEE ANESTHESIA REPORT FOR LIST OF ALL ANTIEMETICS GIVEN IN O.R. PRIOR TO TRANSFER. COMFORT MEASURES i.e. COOL CLOTH, ICE PACK TO NECK, QUEASEASE GIVEN WITHOUT IMPROVEMENT. PATIENT ACTUALLY TRYING TO FORCE SELF TO VOMIT BY STICKING FINGERS DOWN THROAT AT APPROX 1805. DR KHALIL, ANESTHESIA, CONSULTED AND WAS SCOPOLAMINE PATCH, ZOFRAN, AND ATIVAN 0.5 MG TOTAL, SEE PACU SEP. ATIVAN GIVEN AT 181; PATIENT HAS NOT HAD DRY HEAVES SINCE, NGT PLACEMENT WAS AGAIN CHECKED PER POLICY. PATIENT AROUSABLE, CONTINUES TO REPORT NAUSEA, THEN FALLS QUICKLY BACK TO SLEEP, RESTING QUIETLY, NO S/S DISTRESS.
[2022-07-26] MEDS: proMETHazine 25 MG/ML Syringe 12.5 MG IM (22:57)
[2022-07-27] VITALS (8 sets, daily range): BP systolic 144–169; BP diastolic 65–92; PULSE 70–88; RESP 16–20; TEMP 36.9–37.5; O2SAT 95–99
[2022-07-27] MEDS: Ondansetron 4 MG/2 ML Vial IV ×3 (01:50→22:17)
[2022-07-27] MEDS: Lactated Ringers 1,000 ML 125 ML IV (01:51)
[2022-07-27] MEDS: Morphine 2 MG/ML Syringe IV (01:55)
[2022-07-27] MEDS: proMETHazine 25 MG/ML Syringe 12.5 MG IM (04:23)
--- NOTE | 2022-07-27 04:38 | NURSING ---
Patient stated too nauseous to ambulate in hallway. Patient has been dry heaving much of the night despite Zofran and Phenergan.
--- NOTE | 2022-07-27 06:17 | PCM.PN.SRG ---
Subjective Subjective Patient has had significant nausea postoperatively and through the night. She has received Zofran and Phenergan. Still has residual nausea. She thinks that the indwelling NG tube is causing sinus drainage aggravating her condition. She ranks her abdominal pain at 4 out of 10 Objective Data Objective Data Vital Signs: Vital Signs Temp Pulse Resp BP Pulse Ox O2 Del Method 98.8 F 76 18 169/92 H 98 Room Air 07/27/22 04:19 07/27/22 04:19 07/27/22 04:19 07/27/22 04:19 07/27/22 04:19 07/27/22 04:19 Oxygen Delivery Method Room Air Weight: 164 lb 15.55 oz Body Mass Index (BMI) 26.6 Intake & Output: Intake and Output for Last 24 Hours 07/25/22 07/26/22 07/27/22 23:59 23:59 23:59 Intake Total 345.00 / 345.00 5134.25 / 5134.25 828.33 / 828.33 Output Total 510 / 610 100 / 100 Balance 345.00 / 295.00 4624.25 / 4524.25 728.33 / 728.33 Lab / Micro Data Result Diagrams: 07/25/22 17:24 07/26/22 05:35 Labs: Laboratory Results - last 24 hr 07/26/22 05:35: Sodium 138, Potassium 3.6, Chloride 109 H, Carbon Dioxide 24.0, Anion Gap 5, BUN 10, Creatinine 0.69, Estim Creat Clear Calc 106.05, Est GFR (MDRD) Af Amer 119, Est GFR (MDRD) Non-Af 98, BUN/Creatinine Ratio 14.4, Glucose 96, Calcium 8.1 L 07/26/22 12:45: Urine Test Negative Physical Exam Narrative Alert, appears uncomfortable Resp normal respiratory effort and clear to auscultation bilaterally GI GI Narrative: Soft, dressing is dry, quiet with very infrequent bowel sounds, mildly diffusely tender Assessment & Plan Assessment/Plan (1) Colon cancer: PLAN: Patient is postop day 1 status post resection of a high-grade obstructing proximal transverse colon cancer. Fortunately at the time of surgery there was no gross evidence of extension to retroperitoneum or other organs found at the time of surgery. I remove the NG tube for today. I will moderate IV fluids. At this time we will hold sips and chips. I have encouraged mobilization. We will recheck the patient again later today. Spencer Joseph M.D., F.A.C.S.
[2022-07-27 06:21] LABS: Absolute Neutrophil Count 11.2 X10^3/uL (2.0-7.7); Basophil# 0.02 X10^3/uL; Basophil% 0.1 % (0-1); Hematocrit 32.3 % (37-47); Hemoglobin 10.4 g/dL (12.0-15.0); Lymphocyte % 11.5 % (19-41); Mean Corp Hgb Conc 32.2 g/dL (32-36); Mean Corpuscular Hgb 25.3 pg (27.0-32.0); Mean Corpuscular Volume 78.6 fL (81-99); Mean Platelet Vol. 8.7 fl (6.2-12.0); Monocyte# 1.08 X10^3/uL; Monocyte% 7.7 % (0-10); NRBC Flagged by Analyzer 0 % (0-5); Neutrophil # 11.17 X10^3/uL (2.7-7.7); Neutrophil % 80.1 % (47-70); Platelet Count 403 K/mm3 (150-450); RBC Distribution Width CV 13.6 % (11.6-14.6); RBC Distribution Width SD 38.9 fl (35.1-43.9); Red Blood Count 4.11 M/mm3 (4.2-5.4)
[2022-07-27 07:11] LABS: Anion Gap 6 (5-15); BUN 9 mg/dL (7-18); BUN/Creat Ratio 13.3 RATIO (10-20); Calcium,Total 8.2 mg/dL (8.5-10.1); Chloride 104 mmol/L (98-107); Creatinine, Serum 0.68 mg/dL (0.55-1.02); EST Glomerular Filtration Rate 101 mL/min (>60); Est Glom Filt Rate - Afr Amer 122 mL/min (>60); Estimated Creatinine Clearance 99.86 ml/min; Glucose 130 mg/dL (74-106); Sodium Level 136 mmol/L (136-145)
[2022-07-27] MEDS: Ketorolac 15 MG/ML Vial IV ×2 (08:26→22:25)
[2022-07-27] MEDS: Metoclopramide 10 MG/2 ML Vial 5 MG IV (08:29)
[2022-07-27] MEDS: Lactated Ringers 1,000 ML 70 ML IV (11:52)
[2022-07-27] MEDS: proCHLORPERazine 10 MG/2 ML Vial 5 MG IV (17:04)
[2022-07-28] MEDS: proCHLORPERazine 10 MG/2 ML Vial 5 MG IV ×2 (00:57→05:53)
[2022-07-28] MEDS: Lactated Ringers 1,000 ML 70 ML IV (00:57)
[2022-07-28 05:50] VITALS: BP 125/71; PULSE 75; RESP 16; TEMP 36.8; O2SAT 95
[2022-07-28] MEDS: Ketorolac 15 MG/ML Vial IV (05:52)
[2022-07-28] MEDS: 0.9% Saline Lock 10 ML Syringe IV (05:55)
[2022-07-28] MEDS: Ondansetron 4 MG/2 ML Vial IV (06:33)
[2022-07-28 07:18] LABS: Absolute Lymphocyte Count 2.51 X10^3/uL (0.83-4.51); Absolute Neutrophil Count 5.8 X10^3/uL (2.0-7.7); Basophil# 0.03 X10^3/uL; Basophil% 0.3 % (0-1); Eosinophil# 0.13 X10^3/uL; Eosinophils% 1.4 % (0-5); Hematocrit 30.8 % (37-47); Hemoglobin 9.8 g/dL (12.0-15.0); Lymphocyte # 2.51 X10^3/ul (0.83-4.51); Lymphocyte % 26.8 % (19-41); Mean Corp Hgb Conc 31.8 g/dL (32-36); Mean Corpuscular Hgb 25.5 pg (27.0-32.0); Mean Platelet Vol. 8.6 fl (6.2-12.0); Monocyte# 0.86 X10^3/uL; Monocyte% 9.2 % (0-10); NRBC Flagged by Analyzer 0.2 % (0-5); Neutrophil # 5.79 X10^3/uL (2.7-7.7); Neutrophil % 61.9 % (47-70); Platelet Count 356 K/mm3 (150-450); RBC Distribution Width CV 13.8 % (11.6-14.6); RBC Distribution Width SD 39.5 fl (35.1-43.9); Red Blood Count 3.85 M/mm3 (4.2-5.4); White Blood Count 9.4 K/mm3 (4.4-11.0)
--- NOTE | 2022-07-28 07:38 | PCM.PN.SRG ---
Subjective Subjective Patient reports he is not passing any flatus yet. She says her nausea is well controlled with the Zofran and Compazine. Abdominal pain is well controlled she feels better than she did yesterday. Objective Data Objective Data Vital Signs: Vital Signs Temp Pulse Resp BP Pulse Ox O2 Del Method 98.3 F 75 16 125/71 H 95 Room Air 07/28/22 05:50 07/28/22 05:50 07/28/22 05:50 07/28/22 05:50 07/28/22 05:50 07/28/22 05:50 Oxygen Delivery Method Room Air Weight: 164 lb 15.55 oz Body Mass Index (BMI) 26.6 Intake & Output: Intake and Output for Last 24 Hours 07/26/22 07/27/22 07/28/22 23:59 23:59 23:59 Intake Total 5134.25 / 5134.25 2290.33 / 2290.33 1015.83 / 1015.83 Output Total 510 / 610 550 / 550 Balance 4624.25 / 4524.25 1740.33 / 1740.33 1015.83 / 1015.83 Lab / Micro Data Result Diagrams: 07/28/22 06:50 07/27/22 05:58 Labs: Laboratory Results - last 24 hr 07/28/22 06:50: WBC 9.4, RBC 3.85 L, Hgb 9.8 L, Hct 30.8 L, MCV 80.0 L, MCH 25.5 L, MCHC 31.8 L, RDW Std Deviation 39.5, RDW Coeff of Nazanin 13.8, Plt Count 356, MPV 8.6, Immature Gran % (Auto) 0.400, Neut % (Auto) 61.9, Lymph % (Auto) 26.8, [place] % (Auto) 9.2, Eos % (Auto) 1.4, Baso % (Auto) 0.3, Absolute Neuts (auto) 5.8, Absolute Lymphs (auto) 2.51, Nucleated RBC % 0.2 Physical Exam Const oriented x3 and no apparent distress Resp normal respiratory effort GI soft to palpation and non-tender Extremity normal to inspection Assessment & Plan Assessment/Plan (1) Colon cancer: PLAN: Patient reports he does not have any bowel function yet. She says her nausea is controlled on the medications. Her pain is improved since yesterday. I will continue clear liquid diet until she starts having bowel function and then advance her diet. Schuyler Franklin MD Pager: [facility] [address] [place] [address] [address] [place] [phone] Office:
[2022-07-28 10:02] VITALS: BP 102/58; PULSE 84; RESP 16; TEMP 36.7; O2SAT 99
--- NOTE | 2022-07-28 15:22 | PCM.PN.SRG ---
Subjective Subjective Feels tremendously better. Nausea has resolved. Pain is well controlled just with Toradol. She has had flatus but no stools. Objective Data Objective Data Vital Signs: Vital Signs Temp Pulse Resp BP Pulse Ox O2 Del Method 98.1 F 84 16 102/58 L 99 Room Air 07/28/22 10:02 07/28/22 10:02 07/28/22 10:02 07/28/22 10:02 07/28/22 10:02 07/28/22 10:18 Oxygen Delivery Method Room Air Weight: 164 lb 15.55 oz Body Mass Index (BMI) 26.6 Intake & Output: Intake and Output for Last 24 Hours 07/26/22 07/27/22 07/28/22 23:59 23:59 23:59 Intake Total 5134.25 / 5134.25 2290.33 / 2290.33 2050.33 / 2050.33 Output Total 510 / 610 550 / 550 400 / 400 Balance 4624.25 / 4524.25 1740.33 / 1740.33 1650.33 / 1650.33 Lab / Micro Data Result Diagrams: 07/28/22 06:50 07/27/22 05:58 Labs: Laboratory Results - last 24 hr 07/28/22 06:50: WBC 9.4, RBC 3.85 L, Hgb 9.8 L, Hct 30.8 L, MCV 80.0 L, MCH 25.5 L, MCHC 31.8 L, RDW Std Deviation 39.5, RDW Coeff of Nazanin 13.8, Plt Count 356, MPV 8.6, Immature Gran % (Auto) 0.400, Neut % (Auto) 61.9, Lymph % (Auto) 26.8, [place] % (Auto) 9.2, Eos % (Auto) 1.4, Baso % (Auto) 0.3, Absolute Neuts (auto) 5.8, Absolute Lymphs (auto) 2.51, Nucleated RBC % 0.2 Physical Exam GI GI Narrative: Soft, dressings dry and intact, bowel sounds present Assessment & Plan Assessment/Plan (1) Colon cancer: PLAN: Proximal transverse colon cancer near-total obstruction. Grossly distended cecum and ascending colon and proximal transverse colon all resolved with surgical resection. The patient is making very strong progress. We will advance diet. Spencer Joseph M.D., F.A.C.S.
--- NOTE | 2022-07-28 15:24 | DCINST_ITS ---
Discharge Instructions Procedure General Surgery Diet Discharge Diet: Light diet - advance as tolerated (if you have questions about your diet instructions, please talk to you doctor.) Activity Discharge Activity: May Not Drive (for 3-5 days or while taking narcotic pain medicine.) and May Shower May shower in (days): 1 Lifting Restrictions: 10 pounds Dressing / Incision Call your doctor if your incision/area has: Continuous Slow Oozing, Sudden Increased Bleeding, Increased Pain/ Swelling, Increased Redness and Foul Smelling Discharge Call your doctor if you observe: Fever of 101 or Higher Suture Line Care: Avoid Pulling/Pushing and Avoid Pinching/Bending Additional Dressing/Incision Instructions:: Change or remove dressing in 2 days. Leave steri-strips in place for 1 week. Follow Up Care Please Follow Up With: Spencer Joseph MD When: Call [phone] to make an appointment to be seen in about 10 days. Test Results: Test results from this visit will be discussed in further detail at your follow- up appointment, if applicable. Discharge Plan Admission Admit Date/Time: 07/25/22 16:44 Attending Provider: Spencer Joseph Primary Care Provider: Kobe Espinosa Discharge Orders/Prescriptions Prescriptions: No Action medroxyprogesterone [Depo-Provera Contraceptive] 150 mg/mL Suspension 300 mg IM .Q3MO Referrals / Follow Up: Kobe Espinosa DO [Primary Care Provider] -
--- NOTE | 2022-07-28 15:25 | DS.PCM_ITS ---
Providers Date of Admission: 07/25/22 Date of Discharge: 07/29/22 Primary Care Physician: Dr. Kobe Espinosa DO Reason For Visit: COMPLETE COLONIC OBSTRUCTION Diagnosis Discharge Diagnosis (1) Colon cancer: Status: Acute Code(s): C18.9 - Malignant neoplasm of colon, unspecified Plan: Proximal transverse colon cancer near-total obstruction. Grossly distended cecum and ascending colon and proximal transverse colon all resolved with surgical resection. The patient is making very strong progress. We will advance diet. Spencer Joseph M.D., F.A.C.S. Plan I anticipate continued postoperative progression. Currently she is doing well without complication. She has outpatient hematology oncology follow-up already scheduled Dr. Bryant Mao. Final pathology is pending Medications at Discharge Home Medications medroxyprogesterone 150 mg/mL intramuscular suspension 300 mg IM .Q3MO 06/30/22 Hospital Course Summary of Care Provided Minutes Spent on Discharge: 20 Hospital Course: 42-year-old female. She was emergently admitted to the hospital on July 25, 2022 with a near total to total complete occlusion of the proximal transverse colon secondary to biopsy-proven malignancy. She had gross distention of the cecum and ascending colon. After resuscitation on July 26, 2022 she underwent a laparoscopic with conversion to a hand-assisted extended right hemicolectomy. Inspection of the pelvis did not reveal any peritubal cysts as seen on preoperative CT imaging. She had severe nausea immediately postoperatively although she had nausea preoperatively as well. An NG tube remained in for 1 day postoperatively and then was removed. She was initiated on clear liquids and diet was advanced.She continued to progress well with passing flatus. Outpatient follow-up with hematology oncology Dr. Bryant Mao and with myself both scheduled. She has been able to pass flatus and stool. She is tolerating a diet. Her nausea has resolved. Weight / BMI Weight Weight: 164 lb 15.55 oz Body Mass Index (BMI) 26.6 ABG / Lab / Microbiology Data Result Diagrams: 07/28/22 06:50 07/27/22 05:58 Laboratory: Laboratory Results - last 24 hr 07/28/22 06:50: WBC 9.4, RBC 3.85 L, Hgb 9.8 L, Hct 30.8 L, MCV 80.0 L, MCH 25.5 L, MCHC 31.8 L, RDW Std Deviation 39.5, RDW Coeff of Nazanin 13.8, Plt Count 356, MPV 8.6, Immature Gran % (Auto) 0.400, Neut % (Auto) 61.9, Lymph % (Auto) 26.8, [place] % (Auto) 9.2, Eos % (Auto) 1.4, Baso % (Auto) 0.3, Absolute Neuts (auto) 5.8, Absolute Lymphs (auto) 2.51, Nucleated RBC % 0.2 D/C Instructions Discharge Diet: Light diet - advance as tolerated (if you have questions about your diet instructions, please talk to you doctor.) May shower in (days): 1 Call your doctor if your incision/area has: Continuous Slow Oozing, Sudden Increased Bleeding, Increased Pain/ Swelling, Increased Redness and Foul Smelling Discharge Call your doctor if you observe: Fever of 101 or Higher Suture Line Care: Avoid Pulling/Pushing and Avoid Pinching/Bending Additional Dressing/Incision Instructions: Change or remove dressing in 2 days. Leave steri-strips in place for 1 week. Please Follow Up With: Spencer Joseph MD When: Call [phone] to make an appointment to be seen in about 10 days. Meaningful Use Info Meaningful Use Diagnoses (Choose all that apply): None applicable Discharge Plan Admission Admit Date/Time: 07/25/22 16:44 Primary Reason for Your Visit: Obstruction proximal transverse colon cancer Attending Provider: Spnecer Joseph Primary Care Provider: Kobe Espinosa Discharge Orders/Prescriptions Prescriptions: Continued medroxyprogesterone 150 mg/mL Suspension 300 mg IM .Q3MO Referrals / Follow Up: Kobe Espinosa DO [Primary Care Provider] - Disposition Disposition (needs filled in before D/C Order can be placed): Home, Self Care
[2022-07-28 16:10] VITALS: BP 129/80; PULSE 79; RESP 19; TEMP 37.2; O2SAT 99
--- NOTE | 2022-07-28 16:15 | NURSING ---
Walking in alcocer at this time. Pt seems up beat. Talking to staff. Denies nausea.
[2022-07-28] MEDS: Acetaminophen 325 MG Tablet 650 MG PO ×2 (16:31→21:30)
[2022-07-28 16:36] VITALS: BP 129/80; PULSE 79; RESP 19; TEMP 37.2; O2SAT 99
--- NOTE | 2022-07-28 16:37 | NURSING ---
Pt is aware of Regular diet as Dr. Joseph came in recently. Pt ordered dinner. Tylenol given for pain.
[2022-07-28 20:00] VITALS: BP 126/70; PULSE 99; RESP 16; TEMP 37.3; O2SAT 99
[2022-07-29 02:40] VITALS: BP 101/61; PULSE 81; RESP 16; TEMP 36.8; O2SAT 97
--- NOTE | 2022-07-29 06:49 | PN.SURG_ITS ---
Subjective Subjective Excellent progress. Patient is very comfortable. Tolerating diet. Nausea has resolved. She is passing stool and flatus Objective Data Objective Data Vital Signs: Vital Signs Temp Pulse Resp BP Pulse Ox O2 Del Method 98.2 F 81 16 101/61 97 Room Air 07/29/22 02:40 07/29/22 02:40 07/29/22 02:40 07/29/22 02:40 07/29/22 02:40 07/29/22 02:40 Oxygen Delivery Method Room Air Weight: 164 lb 15.55 oz Body Mass Index (BMI) 26.6 Intake & Output: Intake and Output for Last 24 Hours 07/27/22 07/28/22 07/29/22 23:59 23:59 23:59 Intake Total 2290.33 / 2290.33 2810.33 / 2810.33 Output Total 550 / 550 400 / 400 Balance 1740.33 / 1740.33 2410.33 / 2410.33 Lab / Micro Data Result Diagrams: 07/28/22 06:50 07/27/22 05:58 Labs: Laboratory Results - last 24 hr 07/28/22 06:50: WBC 9.4, RBC 3.85 L, Hgb 9.8 L, Hct 30.8 L, MCV 80.0 L, MCH 25.5 L, MCHC 31.8 L, RDW Std Deviation 39.5, RDW Coeff of Nazanin 13.8, Plt Count 356, MPV 8.6, Immature Gran % (Auto) 0.400, Neut % (Auto) 61.9, Lymph % (Auto) 26.8, [place] % (Auto) 9.2, Eos % (Auto) 1.4, Baso % (Auto) 0.3, Absolute Neuts (auto) 5.8, Absolute Lymphs (auto) 2.51, Nucleated RBC % 0.2 Physical Exam GI GI Narrative: Soft, nontender, bowel sounds present, dressings clean and dry Assessment & Plan Assessment/Plan (1) Colon cancer high risk: PLAN: Obstructing colon cancer resected and postoperative progress extraordinarily strong. Patient has made sufficient coverage for discharge. She has outpatient follow- up with Dr. Bryant Mao as well as myself Spencer Joseph M.D., F.A.C.S.
[2022-07-29 07:30] VITALS: BP 101/67; PULSE 90; RESP 16; TEMP 36.8; O2SAT 99
[2022-07-29 07:32] VITALS: RESP 18
[2022-07-29 10:25] VITALS: BP 120/69; PULSE 94; RESP 18; TEMP 36.7; O2SAT 98
== END 2022-07-29 11:09 | disposition home or self-care (01) | DRG 330 ==
PROVIDERS: Admitting Provider Surgery; PCP Family Medicine; Referring Provider Surgery; Visit Provider Surgery
PROC: 0DTF4ZZ Resection of Right Large Intestine, Percutaneous Endoscopic Approach (ICD-10-PCS; CPT 44205; principal; 2022-07-26 14:10)
DX: C18.3 Malignant neoplasm of hepatic flexure (principal); C18.4 Malignant neoplasm of transverse colon; K21.9 Gastro-esophageal reflux disease without esophagitis; R10.2 Pelvic and perineal pain
CPT/HCPCS: 36415; 74018; 80048; 80053; 81025; 85025; 88309; 88341; 88342; 93005; 99252; J7120; A4216; G0463; J2405; J3490

== ENCOUNTER 2022-08-10 12:27 | Day surgery (SDC) | payer BC, SELFPAY ==
[2022-08-10 13:12] LABS: Internal QC Validated? YES +Cl - CLEAR BKGD; Pregnancy, Urine Negative Negative
[2022-08-10 13:14] VITALS: BP 100/55; PULSE 90; RESP 16; TEMP 37.4; O2SAT 96; BMI 26.3
[2022-08-10] MEDS: Lactated Ringers 1,000 ML 15 ML IV (13:21)
--- NOTE | 2022-08-10 14:41 | DCINST_ITS ---
Discharge Instructions Procedure Port-A-Cath Diet Discharge Diet: No restrictions (Pain medication may cause nausea. You should typically eat light foods as you take your pain medication.) Activity Discharge Activity: Return to Normal Activity and May Shower (Leave the bandage on for 2-3 days. When you remove the bandage, leave the steri-strips intact until they fall off.) Additional Activity Instructions:: May not drive, work with heavy equipment, or sign legal documents for [address]. [address] if you are no longer taking narcotic pain medications. You may drive when you are no longer taking pain medications. Dressing / Incision Additional Dressing/Incision Instructions:: Leave the bandage on for 2-3 days. When you remove the bandage, leave the steri-strips intact until they fall off. Follow Up Care Please Follow Up With: Spencer Joseph MD When: Please call [phone] for any difficulties. Test Results: Test results from this visit will be discussed in further detail at your follow- up appointment, if applicable. Discharge Plan Admission Attending Provider: Spencer Joseph Primary Care Provider: Kobe Espinosa Discharge Orders/Prescriptions Prescriptions: No Action medroxyprogesterone 150 mg/mL Suspension 300 mg IM .Q3MO Referrals / Follow Up: Kobe Espinosa DO [Primary Care Provider] - Disposition Disposition (needs filled in before D/C Order can be placed): Home, Self Care
--- NOTE | 2022-08-10 14:41 | HP.PCM_ITS ---
History and Physical Date of Admission: 08/10/22 Visit Reasons:?COLONIC OBSTRUCTION 07/29; PORT PLACEMENT CONSULT Chief Complaint: F/u for colon cancer and discuss port [facility] Director Required: No Is patient in pain?: No Allergies Penicillins Allergy (Severe, Verified 08/08/22 12:55) anaphalaxisSulfa (Sulfonamide Antibiotics) Allergy (Severe, Verified 08/08/22 12:55) Rash Medications medroxyprogesterone 150 mg/mL intramuscular suspension 300 mg IM .Q3MO 06/30/22 [History Confirmed 08/08/22] PFSH Medical History Alcohol use Arthritis Cancer Dysphagia GERD (gastroesophageal reflux disease) Hyperactive colon IUD complication Low iron Non-smoker Surgical History? H/O Moh's micrographic surgery for skin cancer History of dilation and curettage (~2006) Hx of right hemicolectomy Family History? Mother HypertensionBrother HypertensionAunt?? Breast cancerAunt Breast cancerGrandfather Cancer ?? ? prostateUncle Cancer ?? ? possible colon ?? ?Grandmother Cancer ?? ? cancer in digestive Social History? Smoking Status:? Never smoker alcohol intake:? current alcohol intake frequency: a few times a month Alcohol type: wine substance use type:? does not use frequency:? 5-6 times per week HPI HPI Surgical H&P: Yes HPI: Patient is a 42 y/o F s/p laparoscopic complete mobilization of the right colon converted to hand assist extended right colectomy with ileal anastomosis and laparoscopic bilateral transabdominal plan block by Dr. Joseph on 07/26/22. Patient tolerated the procedure well. She had a moderate amount of nausea and vomiting following the procedure due to the NG tube. Patient was discharged on POD #3. She was tolerating her current diet and having bowel movements. Patient returns today for her initial follow-up and to discuss a port placement. Patient notes she has been recovering very well. She denies any pain or discomfort at the incision site or in her abdomen. She denies any nausea or vomiting since being home. She denies any fever. Her bowel movements have been soft and solid. She noted one occasion where her bowels were more loose due to eating pizza. She has been walking for exercise. She is scheduled to start chemotherapy soon. She denies any previous central lines in either side of her neck. She denies any previous port placed. Patient's pathology was reviewed with oncology. She denies any questions with her pathology. Pathology is as follows: MICROSCOPIC DIAGNOSIS Right colon, right colectomy: ?Invasive adenocarcinoma. ?See cancer synoptic report below. ? AM:rg? 07/31/2022 ? COMMENT COLON CANCER SUMMARY Procedure:? Right colectomy Tumor site:? Right colon Tumor size:? 5 x 3.5 x 1.5 cm Macroscopic tumor perforation:? Not identified Histologic type:? Adenocarcinoma Histologic grade:? G1 to G3 (well, moderately and poorly differentiated) Tumor extension:? Tumor invades pericolic fatty tissue. Margins:? All margins are uninvolved by invasive carcinoma, high grade dysplasia or adenoma. ? Margins examined:? Proximal, distal, and serosal Treatment effect:? Unknown Lymphvascular invasion:? Not identified Perineural invasion:? Not identified Lymph nodes:? 12 out of 12 lymph nodes, negative for carcinoma. Tumor deposits:? Present (one deposit; 12.0 mm in diameter)? Ancillary studies: ? See microsatellite instability study by IHC ([id number]) for complete details. ? Negative (no loss of mismatch protein; no microsatellite instability detected). Additional pathologic findings:? None ? PATHOLOGIC STAGE:? T3? N1c? Mx? ? The above summary is in compliance with [employer] (CAP) Cancer Protocols Checklist and [place] [employer] on Cancer (AJCC), Staging Manual, 8th Ed. ROS General General: Yes weight change, fatigue and colon cancer; No appetite, breast cancer or weakness HEENT HEENT: No difficulty swallowing, eye injury, eye surgery, swollen glands or hoarseness Endo Endocrine: No thyroid disease, diabetes mellitus, thyroid cancer, Hair loss, heat intolerance or cold intolerance Skin Skin: No rash or changing moles Breast Breast: No left breast lump, right breast lump, nipple discharge, breast pain, abnormal mammogram, abnormal US or breast enlargement Musc Musculoskeletal: No back problems, arthritis, rheumatoid arthritis, gout or joint pain Cardio Cardiovascular: No murmur, pacemaker, heart disease, atrial fibrillation, high blood pressure, heart attack, heart stent, palpitations, shortness of breat with exertion or chest pain Psych Psychiatric: No depression, anxiety or hearing voices Resp Respiratory: No shortness of breath, No sleep apnea, No cough, No COPD, No asthma, No emphysema and No wheezing Gastro Gastrointestinal: Yes abdominal pain, Yes nausea or vomiting, Yes diarrhea, Yes constipation, No blood in stool, Yes acid reflux, No hemorrhoids, No ulcers, No gallbladder problem and No black,tarry stools Rm Hematologic: No blood thinners, No blood disorders, No bleeding, No anemia and No blood clots Neuro Neurologic: No system reviewed and no additional complaints, except as documented, No as per HPI, No abnormal gait, No abnormal hearing, No abnormal movements, No abnormal speech, No behavioral changes, No burning sensations, No confusion, No convulsions, No disequilibrium, No dizziness, No localized weakness, No frequent falls, No headache(s), No lack of coordination, No loss of vision, No memory loss, No numbness, No other visual disturbances, No radicular pain, No restless legs, No sensory deficit, No syncope, No tingling, No tremor(s), No weakness and No other Exam Const General: cooperative, healthy appearing, comfortable and no acute distress [facility] Head: normal to inspection Eyes General: appearance normal, both eyes and all related structures Neck Neck: normal visual inspection Neck mass: No Resp Effort & Inspection: normal respiratory effort Auscultation: clear to auscultation bilaterally Cardio Rate: regular rate Rhythm: regular rhythm GI Inspection: normal to inspection and incision (midline abdomen- c/d/i. No erythema or infection noted. ) Palpation: soft and nontender Musc Cervical Spine: normal cervical lordosis Skin General: no rashes or lesions noted Neuro General: no focal motor deficits and CN's II-XI intact bilaterally Extrem General: normal to inspection Psych Appearance: grossly normal Affect: normal affect Assessment and Plan Assessment and Plan (1) Colon cancer: ?Status:?Acute ?Comment: Hepatic flexure mass-adenocarcinoma, Clinically no evidence of metastatic disease. CEA 140. S/P R hemicolectomy. Pathology shows invasive adenocarcinoma? pT3 N1c- Stage IIIB. Discussed disease status, treatment with adjuvant chemotherapy, FOLFOX x 12 cycles, risks, benefits and side effects. Pt agrees to proceed. ?Plan: Dr. Joseph also evaluated this patient. Dr. Joseph will plan to perform a right possible left chest port-a-cath placement. Procedure details, risks and benefits have been explained. Patient has had the opportunity to ask and have questions answered. Patient verbally understands and agrees with the plan. Patient may start to increase her exercise activity in 2 weeks with yoga and stretching. One month post-op she may return to slow stationary bike ride. Follow-up in 1 month. Patient may include veggies and other high fiber foods approximately 1 month from surgery. I have examined the patient and the H&P has been reviewed. There are no clinical changes since date of exam. Spencer Joseph M.D., F.A.C.S.
[2022-08-10] MEDS: Bupivacaine Mpf 0.5% 30 ML VIAL (14:47)
[2022-08-10] MEDS: Clindamycin 900 MG/50 ML BAG 75 MG IV (15:40)
[2022-08-10] MEDS: Lidocaine 1% (30 ml sdv) 30 ML Vial (15:47)
--- NOTE | 2022-08-10 16:21 | OP.PCM_ITS ---
Report of Operation Date of Procedure: 08/10/22 Pre-Operative Diagnosis: Metastatic colon cancer Post-Operative Diagnosis: Same Surgery/Procedure Performed:: Right internal jugular 6 [place] PowerPort placement Reference [id number], lot [id number], expiry date 02/13/2024 Description of Surgical Findings:: Timeout informed consent was obtained. 42-year-old female was taken to the operating placed on the table in a month monitored anesthesia care. Clindamycin 9 mg were given intravenously. Prepped and draped. 1% lidocaine mixed 50-50 with 0.5% Marcaine was used as a local anesthetic. A total of 24 cc was used. Local was instilled ultrasound was inspected the right internal jugular vein identified micropuncture needle inserted micropuncture wire inserted then midclavicular line second intercostal space made a transverse incision using electrocautery made a subcutaneous pocket then I tunneled the tubing from the neck to the chest with the micropuncture sheath dilator over the wire remove the dilator and wire and placed an 035 J-wire advanced through the introducer sheath removed the wire and dilator after confirming correct position with fluoroscopy advanced the catheter through the sheath split the sheath I did use 1 cc of con trast to assure positioning the tip at the SVC atrial junction the catheter was then amputated connected to the port secured with a port attachment device. The port was placed in the pocket secured there with 2-0 silk. The port site was closed with interrupted 3-0 Vicryl subdermal stitches and neck was interrupted 5-0 Vicryl. Steri-Strips Telfa OpSite dressings applied. It was then accessed it aspirated easily it was flushed with saline then 2 cc of heparinized saline. Specimens none. Drains none. Blood loss minimal. The patient was taken to the recovery area in satisfactory addition without apparent complication Spencer Joseph M.D., F.A.C.S. Surgeon: Spencer Joseph Type of Anesthesia: Local MAC
[2022-08-10 16:30] VITALS: BP 100/54; BP 100/55
[2022-08-10 16:35] VITALS: BP 100/55; BP 88/57; PULSE 90; RESP 16; O2SAT 100
[2022-08-10 16:40] VITALS: BP 100/55; BP 93/55; PULSE 86; RESP 16; O2SAT 99
--- NOTE | 2022-08-10 16:40 | RAD_ITS ---
STUDY: X-RAY CHEST REASON FOR EXAM: Female, 42 years old. Line placement TECHNIQUE: AP portable COMPARISON: None. FINDINGS: Lungs are mildly hyperinflated but clear.. There is no demonstrated pleural abnormality. Normal size heart. Normal mediastinum and shanda. Normal visualized pulmonary arteries. Normal visualized aortic arch and descending thoracic aorta. Dorsal spine demonstrates degenerative change.. Normal visualized ribs, clavicles, and shoulders. Mediport catheter seen on the right with the tip at the atriocaval junction. No pneumothorax status post catheter placement There is no demonstrated abnormality of the visualized soft tissue structures of the upper abdomen. RAD/Chest 1 View (Portable) IMPRESSION: Mild hyperinflation. No acute pulmonary pathology. Right-sided Mediport catheter with tip at the atrial caval junction Electronically Signed: Calvin Cook MD at 17:43 EST ,
[2022-08-10 16:47] VITALS: BP 100/55; BP 91/50; PULSE 79; RESP 16; TEMP 37.7; O2SAT 99
[2022-08-10 17:24] VITALS: BP 100/55; BP 88/48; PULSE 73; RESP 16; TEMP 37.3; O2SAT 99
== END 2022-08-10 18:02 | disposition home or self-care (01) ==
LOC: SDC 12:27 → AC 13:10
PROVIDERS: Anesthesiology; PCP Family Medicine; Referring Provider Surgery; Visit Provider Surgery
PROC: (CPT 36561; principal; 2022-08-10 15:00)
DX: C18.3 Malignant neoplasm of hepatic flexure (principal); R13.10 Dysphagia, unspecified; Z90.49 Acquired absence of other specified parts of digestive tract
CPT/HCPCS: 36561; 00532; 71045; 77001; 81025; J7120; J2405

== ENCOUNTER → 2023-02-15 | Outpatient (CLI) | payer BC, SELFPAY ==
--- NOTE | 2023-02-15 14:44 | CT_ITS ---
STUDY: CT ABDOMEN AND PELVIS WITH CONTRAST REASON FOR EXAM: Female, 42 years old. assess treatment response -- IV contrast only per Dr. Mao RADIATION DOSAGE (If Supplied By Facility): CTDIvol = ( 15.07 ) mGy, DLP = ( 1098.57 ) mGycm TECHNIQUE: Transaxial images were obtained from the dome of the diaphragm to the symphysis pubis without oral contrast. IV 100mL Isovue-300 was administered. Sagittal and coronal images were reconstructed. Individualized dose optimization techniques were used for this CT. COMPARISON: June 22, 2022 FINDINGS: The visualized lung bases are unremarkable. The visualized portions of the heart are within normal limits. Nonspecific fatty infiltrated liver without mass or bile duct dilatation.. Contracted thick-walled gallbladder without calcified stones likely physiologic. If concern for gallbladder disease ultrasound recommended. Normal spleen. Normal pancreas. Normal bilateral adrenal glands. Normal right kidney. Tiny nonobstructing left renal calculus. No evidence for hydronephrosis or mass.. Normal visualized stomach. Normal small intestine. Postsurgical changes status post right hemicolectomy.. No evidence for acute appendicitis Normal abdominal aorta. Normal inferior vena cava. Normal retroperitoneum. The uterus is midline in location depressing the dome of the bladder which is incompletely distended mildly thick walled. Small left ovarian cyst is observed measuring approximately 1.6 cm. Normal abdominal wall. Lumbar spine demonstrates degenerative change. CT/Abdomen/Pelvis W IV Cont ONLY IMPRESSION: Postsurgical changes status post right colectomy.. Nonspecific fatty infiltrated liver without evidence for hepatic metastasis. No significant adenopathy. Left nephrolithiasis. Incidental finding of small left ovarian cyst Electronically Signed: Calvin Cook MD at 23:00 EDT ,
[2023-02-15] MEDS: 0.9 % NaCl (Sterile) Posiflush 10 mL IV (15:05)
== END | disposition home or self-care (01) ==
LOC: CT 14:43
PROVIDERS: PCP Family Medicine; Referring Provider Internal Medicine Medical Oncology; Visit Provider Internal Medicine Medical Oncology
DX: C18.9 Malignant neoplasm of colon, unspecified (principal)
CPT/HCPCS: 74177; Q9967; A4216

== ENCOUNTER → 2023-05-22 | Outpatient (CLI) | payer BC, SELFPAY ==
--- NOTE | 2023-05-22 12:23 | BI_ITS ---
MAMMOGRAPHY - BILATERAL SCREENING REASON FOR EXAM: Female, 43 years old. Routine annual screening examination. PERTINENT HISTORY: Aunts with breast cancer. TECHNIQUE: Digital bilateral breast shay (3D mammographic acquisition) in the CC and MLO projections. 2-D mediolateral oblique (MLO) and craniocaudad (CC) views of both breasts were obtained. CAD: Full Field Digital Mammography with Computer Added Detection was performed. COMPARISON: Comparison is made with prior study dated November 30, 2020 and September 23, 2008. FINDINGS: Breast Composition: There are scattered areas of fibroglandular density. There are no dominant masses or suspicious calcifications. No other significant abnormalities are identified. There has been no significant change since the prior study. BI/SCRN MAMM (CAD)W/SHAY BILAT IMPRESSION: Stable bilateral screening mammogram. Yearly follow-up mammogram recommended. (A) ASSESSMENT CATEGORY: BIRADS Category 1: Negative. A letter regarding these results will be sent to the patient by the facility within 30 days. Approximately 10% of breast cancers are not detected by mammography. A normal mammogram should not delay biopsy of a clinically suspicious abnormality. [id number] Electronically Signed: Earl Palencia MD at 13:25 EST ,
== END | disposition home or self-care (01) ==
LOC: OPBI 12:22
PROVIDERS: PCP Family Medicine; Referring Provider Obstetrics & Gynecology; Visit Provider Obstetrics & Gynecology
DX: Z12.31 Encounter for screening mammogram for malignant neoplasm of breast (principal)
CPT/HCPCS: 77063; 77067

== ENCOUNTER 2023-07-04 05:10 | Day surgery (SDC) | payer BC, SELFPAY ==
--- NOTE | 2023-07-04 | COLBX_PTH ---
PATIENT: ABHI STEPHENS LOC: EN U#:[id number] AGE/SX: 43/F ROOM: RE07/04/[address]: Dr. Jay Valiente DO : 1980 BED: DIS: 07/04/2023 SPEC #: [id number] RECD: 07/04/23 13:51 STATUS: GEOVANY PEGGY #: [id number] VANESSA: 07/04/23 00:[address]: Jay Valiente DEPT: SURGICAL PATHOLOGY RECD BY: Juan Cm ENTERED: 07/04/23 13:51 SP TYPE: COLON BX OT DR: Dr. Kobe Espinosa DO Tissues: COLON BIOPSY Procedures: Surgery Specimen Level IV HEADER OPERATION: Colonoscopy, biopsy PRE-OP DIAGNOSIS: History of colon cancer TISSUE SUBMITTED: Anastomosis biopsy MICROSCOPIC DIAGNOSIS Anastomotic site, biopsy: Mild glandular architectural change. Focal acute inflammation. No evidence of malignancy. AM:isabel 07/05/2023 MICROSCOPIC DESCRIPTION Slides are reviewed. GROSS DESCRIPTION Received in fixative is one container labeled with the patient's name and designated anastomosis biopsy. The specimen consists of multiple irregular fragments of light mckeon soft tissue that in aggregate measure 2.0 x 0.5 x 0.1 cm. The specimen is totally submitted in one cassette. / SJ:rg 07/04/2023 TC:5 CPT: 08272
[2023-07-04 06:00] VITALS: BP 111/76; PULSE 85; RESP 16; TEMP 36.6; O2SAT 96; BMI 28.4
[2023-07-04 06:18] LABS: Internal QC Validated? YES +Cl - CLEAR BKGD; Pregnancy, Urine Negative Negative
--- NOTE | 2023-07-04 06:31 | PCM.HP.BLA ---
History and Physical Date of Admission: 07/04/23 43y.o.woman presented with abdominal pain, seen in the [facility] ER. Had CT a/p on 06/22/2022 showed R hepatic flexure thickening with pericolonic nodule. She was referred to gastroenterology, had colonoscopy on 07/04/2022 which showed Hepatic flexure mass with stricture, Biopsy done showed Invasive adenocarcinoma. She was referred for further evaluation.? CT chest done on 07/20/2022 was negative. She had laparoscopic R hemicolectomy on 07/26/2022, Pathology shows invasive adenocarcinoma pT3 Q2q-Yndte IIIB. R IC Port was placed on 08/10/2022. ct DNA on 07/26/2022 was 0. Completed adjuvant chemotherapy with FOLFOX on 08/23/2022, completed cycle 12 on 01/24/23. CT a/p on 02/15/2023 showed R hemicolectomy, no evidence of metastatic disease. [facility] Medical History Alcohol use Arthritis Cancer CINV (chemotherapy-induced nausea and vomiting) Cough Dysphagia GERD (gastroesophageal reflux disease) Gout flare Hyperactive colon IUD complication Joint pain Low iron Mucositis (ulcerative) due to antineoplastic therapy Neuropathy Non-smoker Surgical History H/O Moh's micrographic surgery for skin cancer History of dilation and curettage (~2006) Hx of right hemicolectomy Family History Mother HypertensionBrother HypertensionAunt Breast cancerAunt Breast cancerGrandfather Cancer prostateUncle Cancer possible colon Grandmother Cancer cancer in digestive Social History Smoking Status: Never smoker alcohol intake: current alcohol intake frequency: a few times a month Alcohol type: wine substance use type: does not use frequency: 5-6 times per week ROS Constitutional Constitutional: Reports systems reviewed and no addt'l complaints, except as documented Eyes Eyes: Reports systems reviewed and no addt'l complaints, except as documented ENT HEENT: Reports systems reviewed and no addt'l complaints, except as documented Cardiovascular Cardiovascular: Reports systems reviewed and no addt'l complaints, except as documented Respiratory/Chest Respiratory/Chest: Reports systems reviewed and no addt'l complaints, except as documented Gastrointestinal Gastrointestinal: Reports systems reviewed and no addt'l complaints, except as documented Genitourinary Genitourinary: Reports systems reviewed and no addt'l complaints, except as documented Musculoskeletal Musculoskeletal: Reports systems reviewed and no addt'l complaints, except as documented Integumentary Integumentary: Reports systems reviewed and no addt'l complaints, except as documented Neurologic Neurologic: Reports systems reviewed and no addt'l complaints, except as documented Psychiatric Psychiatric: Reports systems reviewed and no addt'l complaints, except as documented Endocrine Endocrinology: Reports systems reviewed and no addt'l complaints, except as documented Hematologic/Lymphatic Hematologic/Lymphatic: Reports systems reviewed and no addt'l complaints, except as documented Allergic/Immunologic Allergic/Immunologic: Reports systems reviewed and no addt'l complaints, except as documented Intake Vital Signs 02/22/2309:03 05/10/2311:01 Height 5 ft 6 in 5 ft 6 in Weight: 80.286 kg BMI 28.5 BP 130/77 H Blood Pressure Location Rt brachial Position Sitting Respiration 18 Pulse 80 Pulse Source Monitor Temp 98.6 F Temperature Source Temporal Artery Pulse Oximetry (%) 97 Oxygen Delivery Method room air Intake Is patient in pain?: No Allergies Penicillins Allergy (Severe, Verified 05/10/23 11:03) anaphalaxisSulfa (Sulfonamide Antibiotics) Allergy (Severe, Verified 05/10/23 11:03) Rash Medications medroxyprogesterone 150 mg/mL intramuscular suspension 300 mg IM .Q3MO 06/30/22 [History Confirmed 05/10/23] lidocaine-prilocaine 2.5 %-2.5 % topical cream 1 applic topical ONCE PRN port access 30 days #30 grams 08/21/22 [Rx Confirmed 05/10/23] ondansetron 8 mg disintegrating tablet 8 mg PO Q12H PRN nausea and vomiting #30 tabs 12/13/22 [Rx Confirmed 05/10/23] allopurinol 100 mg tablet 100 mg PO DAILY #30 tabs 02/22/23 [Rx Confirmed 02/22/23] colchicine 0.6 mg tablet 0.6 mg PO .COMPLEX #30 tabs 02/22/23 [Rx Confirmed 02/22/23] Laboratory Tests 07/12/22 08/23/22 09/06/22 09:45 08:20 07:55 WBC 5.1 Hgb 10.6 L Hct 32.7 L Plt Count 267 Absolute Neuts (auto) 2.9 Sodium Potassium Chloride Carbon Dioxide BUN Creatinine Glucose Calcium Magnesium Total Bilirubin AST ALT Alkaline Phosphatase Lactate Dehydrogenase Total Protein Albumin Globulin Carcinoembryonic Ag 140.0 H 11.2 H 09/06/22 09/20/22 10/04/22 07:55 07:50 07:55 WBC 6.8 7.3 Hgb 11.6 L 12.2 Hct 34.7 L 36.5 L Plt Count 247 206 Absolute Neuts (auto) 4.1 4.1 Sodium 141 140 Potassium 3.8 3.6 Chloride 110 H 108 H Carbon Dioxide 27.0 24.0 BUN 13 15 Creatinine 0.84 Glucose 100 119 H Calcium 8.0 L 8.4 L Magnesium 2.2 2.0 Total Bilirubin 0.40 0.50 AST 24 35 ALT 35 48 Alkaline Phosphatase 50 56 Lactate Dehydrogenase 161 209 Total Protein 6.9 7.1 Albumin 3.6 3.7 Globulin 3.3 3.4 Carcinoembryonic Ag 10/04/22 10/18/22 11/15/22 07:55 08:10 08:00 WBC 6.8 6.9 Hgb 13.6 13.8 Hct 40.9 41.7 Plt Count 186 131 L Absolute Neuts (auto) 3.6 4.1 Sodium 141 Potassium 3.7 Chloride 111 H Carbon Dioxide 22.0 BUN 16 Creatinine 0.82 Glucose 136 H Calcium 8.8 Magnesium 2.1 Total Bilirubin 0.40 AST 52 H ALT 57 H Alkaline Phosphatase 66 Lactate Dehydrogenase 274 H Total Protein 7.4 Albumin 3.5 Globulin 3.9 Carcinoembryonic Ag 2.4 05/07/23 15:45 WBC 11.4 H Hgb 14.6 Hct 43.2 Plt Count 210 Absolute Neuts (auto) 8.2 H Sodium Potassium Chloride Carbon Dioxide BUN Creatinine Glucose Calcium Magnesium Total Bilirubin AST ALT Alkaline Phosphatase Lactate Dehydrogenase Total Protein Albumin Globulin Carcinoembryonic Ag 0.9 Exam Physical Exam Narrative ECOG 0 Const alert, oriented x3 and no apparent distress HEENT normocephalic and head/scalp atraumatic Mouth: oral and palatal mucosa normal, No lesions and No thrush Eyes conjunctivae normal and no scleral icterus General Eye: normal appearance of both eyes Neck supple Lymph Lymphatic: no lymphadenopathy noted Chest Chest Narrative: Port R IC area. Chest: vascular access Resp normal respiratory effort and clear to auscultation bilaterally Cardio regular rate, regular rhythm, S1 normal heart sound and S2 normal heart sound GI normal to inspection, nondistended, normoactive bowel sounds, soft to palpation and non-tender Back/Spine no CVA tenderness and no thoracic nor lumbar tenderness Extremity normal to inspection and no clubbing, cyanosis or edema Extremity Narrative: Left forefinger and 5th finger, and right 5th finger distal joint enlarged and slightly erythematous Skin no rashes or lesions noted Neuro oriented x3, CN's II-XII intact bilaterally and moves all extremities Gait (Neuro): normal gait Psych mental status grossly normal Attitude: calm and engaged Coding Level of Care Code Off vis,est,level 4 Exam Problem Focused Diagnoses Malignant neoplasm of hepatic flexure C18.3 Colon location: hepatic flexure Neuropathy G62.9 Assessment and Plan Assessment and Plan (1) Colon cancer: Status: Chronic Qualifiers: Colon location: hepatic flexure Qualified Code(s): C18.3 - Malignant neoplasm of hepatic flexure Comment: S/P R hemicolectomy, now on adjuvant therapy. ctDNA was negative on 08/01/2022. Completed 12 cycles FOLFOX on 01/24/23. CT a/p 02/15/2023 shows no evidence of disease. Comes for follow up. CEA was normal on 05/07/2023. Plan: She will undergo surveillance colonoscopy. She was explained alternatives, risk, benefits including outstanding bleeding, infection, sepsis, perforation, need for emergent urgent . She well have an ASA of 3.
[2023-07-04 06:55] VITALS: BP 111/76; BP 85/68; PULSE 80; RESP 16; TEMP 36.2; O2SAT 96
--- NOTE | 2023-07-04 06:57 | OP.CCLET_ITS ---
07/04/2023 Kobe Espinosa [address] [facility] [place] [address] Re : Colonoscopy procedure for [place] Dear Dr. Espinosa This procedure was performed on Tuesday, July 04, 2023. My impressions and recommendations are as follows: Impressions : - Patent end-to-side ileo-colonic anastomosis, characterized by erythema, an intact appearance, an intact staple line and no visible sutures. Biopsied. - The examination was otherwise normal on direct and retroflexion views. Recommendations : - Discharge patient to home. - Resume previous diet. - Continue present medications. - Await pathology results. - Repeat colonoscopy in 1 year for surveillance. My findings are described in the full procedure note, which is enclosed. If I can be of further assistance, please feel free to contact me at . Sincerely, Jay Valiente, 07/04/2023 6:56:52 AM This report has been signed electronically.
--- NOTE | 2023-07-04 06:57 | OP.COLON_ITS ---
Patient Name: Magnolia Vail Procedure Date: 07/04/2023 6:33 AM Date of : 1980 Age: 43 Procedure: Colonoscopy Indications: High risk colon cancer surveillance: Personal history of colon cancer, Incidental - Colon cancer Providers: DO Laurita Myers MD: Kobe Espinosa Medicines: Monitored Anesthesia Care Patient Profile: This is a 43 year old female. Refer to note in patient chart for documentation of history and physical. Last Colonoscopy: 1 year ago. Complications: No immediate complications. Procedure: Pre-Anesthesia Assessment: - Prior to the procedure, a History and Physical was performed, and patient medications and allergies were reviewed. The risks and benefits of the procedure and the sedation options and risks were discussed with the patient. All questions were answered and informed consent was obtained. Patient identification and proposed procedure were verified by the physician. Mental Status Examination: normal. Prophylactic Antibiotics: The patient does not require prophylactic antibiotics. Prior Anticoagulants: The patient has taken no anticoagulant or antiplatelet agents. After reviewing the risks and benefits, the patient was deemed in satisfactory condition to undergo the procedure. The anesthesia plan was to use monitored anesthesia care (MAC). Immediately prior to administration of medications, the patient was re-assessed for adequacy to receive sedatives. The heart rate, respiratory rate, oxygen saturations, blood pressure, adequacy of pulmonary ventilation, and response to care were monitored throughout the procedure. The physical status of the patient was re-assessed after the procedure. After I obtained informed consent, the scope was passed under direct vision. Throughout the procedure, the patient's blood pressure, pulse, and oxygen saturations were monitored continuously. The Colonoscope was introduced through the anus and advanced to the terminal ileum. The colonoscopy was performed without difficulty. The patient tolerated the procedure well. The quality of the bowel preparation was adequate. The terminal ileum was photographed. Scope In: 6:38:14 AM Scope Withdrawal Time 0 hours 8 minutes 52 seconds Scope Out: 6:50:45 AM Total Procedure Duration Time 0 hours 12 minutes 31 seconds Findings: The perianal and digital rectal examinations were normal. There was evidence of a prior end-to-side ileo-colonic anastomosis at the hepatic flexure. This was patent and was characterized by erythema, an intact appearance, an intact staple line and no visible sutures. The anastomosis was traversed. Biopsies were taken with a cold forceps for histology. Verification of patient identification for the specimen was done. Estimated blood loss was minimal. The exam was otherwise without abnormality on direct and retroflexion views. Impression: - Patent end-to-side ileo-colonic anastomosis, characterized by erythema, an intact appearance, an intact staple line and no visible sutures. Biopsied. - The examination was otherwise normal on direct and retroflexion views. Recommendation: - Discharge patient to home. - Resume previous diet. - Continue present medications. - Await pathology results. - Repeat colonoscopy in 1 year for surveillance. Procedure Code(s): --- Professional --- 00993, Colonoscopy, flexible; with biopsy, single or multiple CPT copyright 2021 [employer]. All rights reserved. The codes documented in this report are preliminary and upon cab worker review may be revised to meet current compliance requirements. Jay Valiente DO 07/04/2023 6:56:52 AM This report has been signed electronically. Number of Addenda: 0 Note Initiated On: 07/04/2023 6:33 AM
[2023-07-04 07:00] VITALS: BP 111/76; BP 91/60; PULSE 81; RESP 16; O2SAT 96
[2023-07-04 07:05] VITALS: BP 101/68; BP 111/76; PULSE 81; RESP 16; TEMP 36.6; O2SAT 96
[2023-07-04 07:20] VITALS: BP 111/76
== END 2023-07-04 08:13 | disposition home or self-care (01) ==
LOC: EN 05:11 → AC 05:12
PROVIDERS: Anesthesiology; PCP Family Medicine; Referring Provider Family Medicine; Visit Provider Internal Medicine Gastroenterology
PROC: 0DJD8ZZ Inspection of Lower Intestinal Tract, Via Natural or Artificial Opening Endoscopic (ICD-10-PCS; CPT 45378; principal; 2023-07-04 06:25)
DX: Z12.11 Encounter for screening for malignant neoplasm of colon (principal); K91.89 Other postprocedural complications and disorders of digestive system; Z98.0 Intestinal bypass and anastomosis status; Z85.038 Personal history of other malignant neoplasm of large intestine
CPT/HCPCS: 45380; 81025; 88305; J7120; J2405

== ENCOUNTER → 2023-08-30 | Outpatient (CLI) | payer BC, SELFPAY ==
--- OUTSIDE RECORDS SUMMARY | 2023-08-30 08:12 | XMS RPT_ITS | CCD ---
Author Name Unknown Address [address] [place] [address] Organization [facility] Care Team Providers Care Sap Manager Name Role Phone Rigoberto TERRY, Schuyler Thomas Unavailable Max TREASURY AGENT, Arin N Unavailable Unavailab le Max TREASURY AGENT, Arin N Unavailable Unavailab le Max GOLD, Arin N Unavailable Unavailab Ana Christiansen Primary Care Provider [facility] EMILIA/Bryant HO Unavailable Kisha Shepherd RN Unavailable Unavailable Ana Espinosa DO Primary Care Provider PANCHO PARIKH Attending Unavailable ANA ESPINOSA Primary Care Unavailable Unavailable Primary Care Provider UnavailFAUSTO Patrick Attending Unavailable Allergies Allergy Classification Reported Allergen(s) Allergy Type Date of Onset Reaction(s) Facility (5 sources) penicillin v drug allergy 7 [facility] Work Phone: (5 sources) sulfamethoxazole / trimethoprim drug allergy 7 [facility] Work Phone: (2 sources) Penicillins Propensity to adverse reactions to drug 1 Anaphylaxis [facility] (2 sources) Sulfonamides (Antibiotic) Propensity to adverse reactions to drug 1 Rash [facility] (2 sources) Penicillin; Translations: [PENICILLIN] Drug Allergy 3 Anaphylaxis [facility] (2 sources) Sulfonamides (Antibiotic); Translations: [SULFA (SULFONAMIDE ANTIBIOTICS)] Drug Allergy 3 Rash [facility] Medications Current Medications Medication Drug Class(es) Dates Sig (Normalized) Sig (Original) ciprofloxacin 500 mg oral tablet (1 source) Quinolone Antimicrobial Start: 07-20-19 End: 07-27-19 take 1 tablet by mouth every twelve hours Ciprofloxacin 500 MG tablet Take 1 tablet by mouth every 12 hours for 7 days. 14 tablet 0 07/20/2022 07/27/2022 Active 1 ml medroxyPROGESTERone acetate 150 mg/ml prefilled syringe (4 sources) Progestin Start: 05-01-20 End: 04-01-20 medroxyPROGESTERone 150 mg injection (DEPO-PROVERA) Completed/Discontinued Medications Medication Drug Class(es) Dates Sig (Normalized) Sig (Original) iohexol (OMNIPAQUE) 350 MG/ML injection 1-171 mL (1 source) Start: 07-19-2022 End: 07-19-2022 iohexol (OMNIPAQUE) 350 MG/ML injection 1-171 mL Drug Treatment Unknown - unknown (1 source) No information available. 10 ml sodium chloride 9 mg/ml injection (1 source) Start: 07-19-2022 End: 07-19-2022 Sodium chloride (PF) 0.9 % injection 1-100 mL Problems Active Problems Problem Classification Problem Date Documented Date Episodic/Chronic Cancer of colon (2 sources) Malignant neoplasm of hepatic flexure; Translations: [Malignant neoplasm of hepatic flexure] Onset: 07-12-2022 Chronic Contraceptive and procreative management (1 source) Contraception status; Translations: [Encounter for other general counseling and advice on contraception] 05-03-2023 Episodic Noninfectious gastroenteritis (3 sources) Colitis; Translations: [Noninfective gastroenteritis and colitis, unspecified] Onset: 07-20-2022 Episodic Past or Other Problems Problem Classification Problem Date Documented Da te Episodic/Chronic Abdominal pain (5 sources) Right upper quadrant pain; Translations: [Right upper quadrant pain] Onset: 12-19-2016 12-19-2016 Episodic Unclassified (2 sources) H/O: hay fever; Translations: [Personal history of other diseases of the respiratory system] Onset: 12-27-2016 12-27-2016 Episodic Results Test Name Value Interpretation Reference Range Facil ity Vital Signs Date Time Vital Sign Value Performing Clinician Facility 07-19-2022 22:37-0500 Body temperature 98.1 [degF] Pancho Parikh MD Work Phone: [facility] 07-19-2022 22:37-0500 Diastolic blood pressure 58 mm[Hg] Pancho Parikh MD Work Phone: [facility] 07-19-2022 22:37-0500 Heart rate 82 /min Pancho Parikh MD Work Phone: [facility] 07-19-2022 22:37-0500 Respiratory rate 20 /min Pancho Parikh MD Work Phone: [facility] 07-19-2022 22:37-0500 SaO2% (BldA) [Mass fraction] 96 % Pancho Parikh MD Work Phone: [facility] 07-19-2022 22:37-0500 Systolic blood pressure 117 mm[Hg] Pancho Parikh MD Work Phone: [facility] 07-19-2022 10:21-0500 Body height 167.6 cm Pancho Parikh MD Work Phone: [facility] 12-27-2016 08:53-0400 BMI (Body Mass Index) 28.44 kg/m2 Schuyler Franklin MD [facility] Work Phone: 12-27-2016 08:53-0400 Body Temperature 98 [degF] Schuyler Franklin MD [facility] Work Phone: 12-27-2016 08:53-0400 BP Diastolic 84 mm[Hg] Schuyler Franklin MD [facility] Work Phone: 12-27-2016 08:53-0400 BP Systolic 18 mm[Hg] Schuyler Franklin MD [facility] Work Phone: 12-27-2016 08:53-0400 Height 167.64 cm Schuyler Franklin MD [facility] Work Phone: 12-27-2016 08:53-0400 Pulse (Heart Rate) 72 /min Schuyler Franklin MD [facility] Work Phone: 12-27-2016 08:53-0400 Pulse Oximetry 98 % Schuyler Franklin MD [facility] Work Phone: 12-27-2016 08:53-0400 Respiratory Rate 18 /min Schuyler Franklin MD [facility] Work Phone: 12-27-2016 08:53-0400 Weight 79.92 kg Schuyler Franklin MD [facility] Work Phone: 12-19-2016 14:50-0400 BMI (Body Mass Index) 29.73 kg/m2 Arin Santana LPN [facility] Work Phone: 12-19-2016 14:50-0400 Body Temperature 98.2 [degF] Arin Santana LPN [facility] Work Phone: 12-19-2016 14:50-0400 Body weight 83.55 kg Arin Santana LPN [facility] Work Phone: 12-19-2016 14:50-0400 BP Diastolic 84 mm[Hg] Arin Santana LPN [facility] Work Phone: 12-19-2016 14:50-0400 BP Systolic 122 mm[Hg] Arin Santana LPN [facility] Work Phone: 12-19-2016 14:50-0400 Height 167.64 cm Arin Santana LPN [facility] Work Phone: 12-19-2016 14:50-0400 Pulse (Heart Rate) 89 /min Arin Santana LPN [facility] Work Phone: 12-19-2016 14:50-0400 Pulse Oximetry 96 % Arin Santana LPN [facility] Work Phone: 12-19-2016 14:50-0400 Respiratory Rate 12 /min Arin Santana LPN [facility] Work Phone: 12-19-2016 14:50-0400 Weight 83.55 kg Arin Santaan LPN [facility] Work Phone: Encounters Encounter Date Encounter Type Care Provider Facility Start: 07-18-2023 End: 07-18-2023 ambulatory FAUSTO ACOSTA Facility:[facility] Start: 05-01-2023 Telephone encounter Fausto palmer MD Work Phone: OB/Gynecology Procedures Date Procedure Procedure Detail Performing Clinician Start: 07-19-2022 Ct abdomen & pelvis w/contrast material Tatianna Fisher MD Work Phone: Start: 07-19-2022 Assay of lipase Daiana Lin MD Work Phone: Start: 07-19-2022 CBC AND ELECTRONIC DIFF Daiana Lin MD Work Phone: Start: 07-19-2022 Complete blood count with white cell differential, automated Daiana Lin MD Work Phone: Start: 07-19-2022 Hepatic function panel Daiana Lin MD Work Phone: Start: 07-19-2022 MINT GREEN TOP TUBE Adia Lin MD Work Phone: Start: 05-19-2021 Diagnostic mammograp hy computer-aided detcj uni Corrina Lyons MD Work Phone: Start: 12-19-2016 End: 12-19-2016 Documentation of current medications Arin Santana LPN Plan of Treatment Date Care Activity Detail Author Start: 04-01-2025 DTaP/Tdap/Td vaccine (2 - Td or Tdap) DTaP/Tdap/Td vaccine (2 - Td or Tdap) [facility] Work Phone: Start: 04-01-2025 Urine microalbumin profile DTaP,Tdap,Td Vaccine (2 - Td or Tdap) [facility] Start: 03-16-2023 Covid-19 Vaccine ( season) Covid-19 Vaccine () [facility] Start: 03-16-2023 Influenza vaccination Influenza Vaccine (#1) [facility] Start: 08-09-2022 End: 08-09-2022 Patient encounter procedure 08/09/2022 Office Visit Colon & Rectal Surgery Ana Hannah MD [address] [place] [address] Division of Colon & Rectal Surgery Start: 07-16-2022 Depression Assessment Depression Assessment [facility] Start: 03-16-2022 Influenza vaccination INFLUENZA VACCINE (#1) [facility] Start: 07-20-2021 End: 07-20-2021 Patient encounter procedure 07/20/2021 Office Visit Breast Clinic / Breast Center Sari Gupta, SAMIRA - TELEPHONE DIRECTORY DISTRIBUTOR DRIVER [address] [place], [place] [id number] [facility] Start: 03-16-2021 Influenza vaccination Flu vaccine (#1) [facility] Work Phone: Start: 2019 Diabetes screen Diabetes screen [facility] Work Phone: Start: 2019 Lipid panel [facility] Start: 2019 Mammography Mammogram Screening [facility] Start: 2019 Screening for malignant neoplasm of breast MAMMOGRAM SCREENING DISCUSSION [facility] Start: 12-27-2016 End: 12-28-2016 Hepatobiliary imaging NM HIDA Scan with EF [facility] Work Phone: Start: 12-22-2016 End: 12-22-2016 Urology Referral Urology Referral Sudarshan Beyer, [address], [address], [place], [address] [facility] Work Phone: Start: 12-19-2016 End: 12-19-2016 Appointment Appointment [facility] Work Phone: Start: 12-19-2016 End: 12-19-2016 Echo exam of abdomen US Gallbladder [facility] Work Phone: Start: 2009 HPV Testing HPV Testing [facility] Start: 2009 Screening for malignant neoplasm of cervix [facility] Work Phone: Start: 2000 Pap Testing Pap Testing [facility] Start: 2000 Screening for malignant neoplasm of cervix [facility] Start: 1998 Third diphtheria, tetanus and acellular pertussis (DTaP) vaccination TDAP (ADULT) [facility] Start: 1998 Urine microalbumin profile DTaP,Tdap,Td Vaccine (1 - Tdap) [facility] Start: 1997 Hepatitis C Screening Hepatitis C Screening [facility] Start: 1997 HIV Screening HIV Screening [facility] Start: 1994 HIV screening [facility] Start: 1979 COVID-19 VACCINE (#1) COVID-19 VACCINE (#1) [facility] Start: 1979 Hepatitis B Vaccine (1 of 3 - 3-dose series) Hepatitis B Vaccine (1 of 3 - 3-dose series) [facility] Start: 1979 Hepatitis C screening [facility] Start: 1979 Tetanus vaccination TETANUS [facility] GOLD TOP TUBE GOLD TOP TUBE La b STAT 07/19/2022 10:29 AM EST [facility] Insertion intrauteri ne device iud INSERT INTRAUTERINE DEVICE Procedures Routine Counseling for control regarding intrauterine device (IUD) Ordered: 05/03/2023 [facility] Work Phone: Immunizations Immunization Date Immunization Notes Care Provider Alvaro sanabria 04-13-2020 influenza virus vacc ine, unspecified formulation Fausto Acosta MD Work Phone: [facility] Payers Date Payer Category Payer Unknown [id number] 2021 Unknown [id number] 2020 Private Health Insurance LARISA Wadsworth [employer] [id number] 2020-Present [phone] [address] [place] [address] [id number] 1979 Unknown [id number] 1979 Unknown [id number] Social History Date Type Detail Facility Start: 05-05-2021 End: 05-01-2023 Tobacco smoking status NHIS Never smoker [facility] Work Phone: Start: 05-05-2021 End: 05-01-2023 Tobacco use and exposure Never used [facility] Start: 05-05-2021 Alcohol intake Ex-drinker (finding) [facility] Work Phone: Start: 1980 Sex Assigned At Not on file [facility] Work Phone: Exposure to SARS-CoV-2 (event) Not sure [facility] Start: 07-19-2022 End: 05-01-2023 Alcohol intake Current drinker of alcohol (finding) [facility] Start: 07-19-2022 Alcohol Comment social- wine [facility] Tobacco smoking status MIIS Tobacco smoking consumption unknown [facility] Work Phone: Start: 05-01-2023 Gender identity Not on file [facility] Start: 05-01-2023 History of Social function [facility] National Score (1-100), lower number is lower risk 70 [facility] Start: 05-01-2023 Alcohol Comment occasional [facility] Clinical Notes 07-19-2022 to 07-18-2023 Telephone Encounter - Hannah Ortiz RN - 05/04/2023 10:09 AM EDTTelephone Encounter - Fausto Acosta MD - 05/03/2023 11:24 AM EDTTelephone Encounter - Tamra Mayorga RN - 05/01/2023 4:53 PM EDT Note Date & Type Note Facility 07-18-2023 Note HNO ID: [id number] Author: Hannah Ortiz RN Service: ? Author Type: Registered Nurse Type: Progress Notes Filed: 07/18/2023 9:27 AM Note Text: Patient identified by name and date of . Abhi Vail is here for a Depo Provera injection. Patient brought medication. Date last injected: 05/01/23 Depo-Provera, 150 mg, administered IM right upper quadrant gluteus, Lot # [id number], expiration date 05/15/2027. Depo-Provera was given without incident. Date of last menses: No LMP recorded. Patient has had an injection. Irregular bleeding - Yes Menses ceased - Yes STD prevention discussed: Yes Patient instructed to return to clinic on 12 weeks. [email or web address] Provider Jennifer Brasher CNM was present in office at time of injection. HANNAH ORTIZ RN [facility] 05-04-2023 Miscellaneous Notes Formattin g of this note might be different from the original. Attempted to call patient to notify order placed and to schedule. Left message for patient to call office. Will send My Chart message. HANNAH ORTIZ RN Done Fausto Acosta MD Images from the original note were not included. Left message for patient to return phone call. Dr Acosta please file order so we can schedule Fausto Acosta MD Koch, Teresa RN Please let patient know that I reviewed her pelvic US and she can proceed with scheduling the IUD insertion. Also as we can't find pap records I would recommend doing a pap with hpv at the time of IUD insertion as well. Thanks! documented in this encounter [facility] 05-01-2023 Note HNO ID: [id number] Author: Fausto Acosta MD Service: ? Author Type: Physician Type: Progress Notes Filed: 05/01/2023 1:05 PM Note Text: Patient identified by name and date of . Abhi Vail is here for a Depo Provera injection. Patient brought medication. Date last injected: first injection at this office - negative test. Depo-Provera, 150 mg, administered IM left upper quadrant gluteus, Lot # [id number], expiration date 10/13/2026. Depo-Provera was given without incident. Date of last menses: No LMP recorded. Patient has had an injection. Patient instructed to return to clinic on 12 weeks. [email or web address] Provider Dr. Acosta was present in office at time of injection. Aleida Lentz RN [facility] 05-01-2023 Note HNO ID: [id number] Author: Fausto Acosta MD Service: ? 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 Abhi is a 43 year old who presents for an annual gynecologic exam. She is doing well after treatment for colon cancer. 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 History Comments: Sexual Activity: Yes; Male Contraception: Injection PAST MEDICAL HISTORY Diagnosis Date Colon cancer (HCC) PAST SURGICAL HISTORY Procedure Laterality Date LAPAROSCOPIC HEMICOLECTOMY Right PORT SUCTION D AND C 2006 FAMILY HISTORY Problem Relation Age of Onset Arthritis Mother Hypertension Mother Hypertension Father No Known Problems Sister Hypertension Brother other (stomach cancer) Maternal Grandmother Heart Maternal Grandfather other (als) Paternal Grandmother Heart Paternal Grandfather other (congestive heart failure) Paternal Grandfather SOCIAL HISTORY Social History Tobacco Use Smoking status: Never Smokeless tobacco: Never Vaping Use Vaping Use: Never used Substance Use Topics Alcohol use: Yes Comment: occasional Drug use: Never REVIEW OF SYSTEMS Abdomen: No abdominal pain, nausea, vomiting, diarrhea, or constipation. No bloating, early satiety, indigestion, or increased flatulence. Bladder: No dysuria, gross hematuria, urinary frequency, urinary urgency, or incontinence. Breast: No breast lumps, nipple d/c, overlying skin changes, redness or skin retraction. Allergies and current medication updated:Yes EXAM: BP 100/70 Ht 5' 6 (1.68m) Wt 178 lb 12.8 oz (81.1kg) BMI 28.87 kg/(m2). GENERAL: pleasant, female in no apparent distress BREAST: soft, non-tender, symmetric, no dominant mass, normal nipple-areolar complex, no lymphadenopathy, and no nipple discharge CHEST: Normal inspiratory effort ABDOMEN: soft, non-tender, and no masses PELVIC: external genitalia normal, normal [place]'s glands, urethra, [place]'s glands, no vulvar lesions, no cervical lesions, good vaginal support, physiologic discharge present, normal appearing perineal body and perianal region BIMANUAL: uterus normal size, shape and consistency, no adnexal masses, and non-tender RECTOVAGINAL: deferred. NEURO: alert and oriented x3,exam grossly non-focal EXTREMITIES: normal ASSESSMENT/PLAN: 1) Health maintenance: Pap/HPV up to date per patient but unable to find records. Will plan for pap at time of IUD insertion. Mammogram ordered. Nutrition, exercise and routine health maintenance exams reviewed. 2) Contraception: depo and follow up for Mirena IUD. Contraceptive options reviewed and information provided. 3) STD screening: Declined STD check. 4) Follow up one year or sooner as needed 5) Colon cancer - consult to genetics counseling Fausto Acosta MD [facility] 04-30-2023 Miscellaneous Notes Formattin g of this note might be different from the original. ordered Patient has appointment with Dr. Acosta on 05/01/2023 and is due for depo provera injection and requesting to receive injection at appointment. Patient transferring from [place] and was prescribed depo by Dr. Monsivais and does not have any refills left. Patient asking if medication can be sent to pharmacy before Sunday. 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 documented in this encounter [facility] 07-20-2022 History of Presen t illness Narrative Department of Pharmacy ED Discharge Prescription Review Patient: Abhi Vail Due to the specific medication prescribed, the following ED discharge prescriptions were reviewed after discharge at 07/20/2022 12:54 AM: Ciprofloxacin plus metronidazole Based upon review of above discharge prescriptions, No interventions were necessary for the above prescription(s). No follow-up actions are necessary at this time. Please feel free to contact me with any further questions. Name: Sari Castañeda RPH Phone: [phone] Date/Time: 07/20/2022 12:54 AM documented in this encounter [facility] 07-19-2022 Physician Emergen cy department Note History Chief Complaint Patient presents with Abdominal Pain HPI Abhi Vail is a 42 y.o. female that presents with lower abdominal pain. Pt reports 3 day hx of lower abdominal pain. Pain is described as intermittent cramping. Worsened following meals. Associated with nausea. Pt states she has taken acetaminophen for pain with mild relief in symptoms. 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 Pt states that she has been referred for oncology evaluation but has not yet seen her oncologist at [facility]. Past Medical History: Diagnosis Date Colon cancer Past Surgical History: Procedure Laterality Date DILATION AND CURETTAGE No family history on file. Social History Tobacco Use Smoking status: Never Smokeless tobacco: Never Substance Use Topics Alcohol use: Yes Comment: social- wine Drug use: Never Review of Systems Constitutional: Positive for appetite change (decreased). Negative for activity change, fatigue and fever. Respiratory: Negative for shortness of breath. Cardiovascular: Negative for chest pain and leg swelling. Gastrointestinal: Positive for abdominal pain, constipation, diarrhea and nausea. Negative for blood in stool and vomiting. Genitourinary: Negative for dysuria. Skin: Negative for rash. Physical Exam BP 117/80 (BP Location: Right arm, BP Position: Sitting) Pulse 83 Temp 98.5 F (36.9 C) (Oral) Resp 18 Ht 1.676 m (5' 6 ) SpO2 98% Smoking Status Never Physical Exam Vitals and nursing note reviewed. Constitutional: General: She is not in acute distress. Appearance: She is well-developed and normal weight. She is not ill-appearing or toxic-appearing. HENT: Head: Normocephalic and atraumatic. Mouth/Throat: Pharynx: No pharyngeal swelling or oropharyngeal exudate. Eyes: General: No scleral icterus. Extraocular Movements: Extraocular movements intact. Cardiovascular: Rate and Rhythm: Normal rate and regular rhythm. Heart sounds: Normal heart sounds. Pulmonary: Effort: Pulmonary effort is normal. No respiratory distress. Breath sounds: No stridor. Abdominal: Palpations: Abdomen is soft. Tenderness: There is abdominal tenderness in the suprapubic area. There is no right CVA tenderness, left CVA tenderness, guarding or rebound. Negative signs include De La O's sign and Rovsing's sign. Hernia: No hernia is present. Neurological: Mental Status: She is alert and oriented to person, place, and time. ED Course Procedures Medical Decision Making Abhi Vail is a 42 y.o. female recently diagnosed with colon cancer that presents with lower abdominal pain. DDX includes life threatening conditions including worsening malignancy, bowel obstruction, and colitis Will evaluate with labs and CT abdomen and pelvis with IV contrast. Pt noted to have colitis on ct scan. Discussed findings with patient. Offered admission. Pt states that she would prefer to be treated outpt and will follow up with oncology and PCP. Pt will be prescribed abx. Pt provided with signs and symptoms that should prompt emergent return to the ER. Pt voiced understanding. Amount and/or Complexity of Data Reviewed Independent Historian: parent External Data Reviewed: notes. Labs: ordered. Details: labs including CBC, chem6, LFT, lipase are unremarakble except for WBC of 10 Radiology: ordered. Details: CT scan concerning for colitis Risk Prescription drug management. Decision regarding hospitalization. Pancho Parikh MD 07/19/222010 Pancho Parikh MD 07/20/22 0022 [facility] 07-19-2022 Emergency department Note History Chief Complaint Patient presents with Abdominal Pain HPI Abhi Vail is a 42 y.o. female that presents with lower abdominal pain. Pt reports 3 day hx of lower abdominal pain. Pain is described as intermittent cramping. Worsened following meals. Associated with nausea. Pt states she has taken acetaminophen for pain with mild relief in symptoms. 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 Pt states that she has been referred for oncology evaluation but has not yet seen her oncologist at [facility]. Past Medical History: Diagnosis Date Colon cancer Past Surgical History: Procedure Laterality Date DILATION AND CURETTAGE No family history on file. Social History Tobacco Use Smoking status: Never Smokeless tobacco: Never Substance Use Topics Alcohol use: Yes Comment: social- wine Drug use: Never Review of Systems Constitutional: Positive for appetite change (decreased). Negative for activity change, fatigue and fever. Respiratory: Negative for shortness of breath. Cardiovascular: Negative for chest pain and leg swelling. Gastrointestinal: Positive for abdominal pain, constipation, diarrhea and nausea. Negative for blood in stool and vomiting. Genitourinary: Negative for dysuria. Skin: Negative for rash. Physical Exam BP 117/80 (BP Location: Right arm, BP Position: Sitting) Pulse 83 Temp 98.5 F (36.9 C) (Oral) Resp 18 Ht 1.676 m (5' 6 ) SpO2 98% Smoking Status Never Physical Exam Vitals and nursing note reviewed. Constitutional: General: She is not in acute distress. Appearance: She is well-developed and normal weight. She is not ill-appearing or toxic-appearing. HENT: Head: Normocephalic and atraumatic. Mouth/Throat: Pharynx: No pharyngeal swelling or oropharyngeal exudate. Eyes: General: No scleral icterus. Extraocular Movements: Extraocular movements intact. Cardiovascular: Rate and Rhythm: Normal rate and regular rhythm. Heart sounds: Normal heart sounds. Pulmonary: Effort: Pulmonary effort is normal. No respiratory distress. Breath sounds: No stridor. Abdominal: Palpations: Abdomen is soft. Tenderness: There is abdominal tenderness in the suprapubic area. There is no right CVA tenderness, left CVA tenderness, guarding or rebound. Negative signs include De La O's sign and Rovsing's sign. Hernia: No hernia is present. Neurological: Mental Status: She is alert and oriented to person, place, and time. ED Course Procedures Medical Decision Making Abhi Vail is a 42 y.o. female recently diagnosed with colon cancer that presents with lower abdominal pain. DDX includes life threatening conditions including worsening malignancy, bowel obstruction, and colitis Will evaluate with labs and CT abdomen and pelvis with IV contrast. Pt noted to have colitis on ct scan. Discussed findings with patient. Offered admission. Pt states that she would prefer to be treated outpt and will follow up with oncology and PCP. Pt will be prescribed abx. Pt provided with signs and symptoms that should prompt emergent return to the ER. Pt voiced understanding. Amount and/or Complexity of Data Reviewed Independent Historian: parent External Data Reviewed: notes. Labs: ordered. Details: labs including CBC, chem6, LFT, lipase are unremarakble except for WBC of 10 Radiology: ordered. Details: CT scan concerning for colitis Risk Prescription drug management. Decision regarding hospitalization. Pancho Parikh MD 07/19/222010 Pancho Parikh MD 07/20/22 0022 Patient states severe lower abdominal pain, cramping and nausea over the last few days. Colon cancer diagnosis two weeks ago. Referring doctor is concerned for possible bowel obstruction. documented in this encounter [facility] 07-19-2022 Emergency department Note Patient states severe lower abdominal pain, cramping and nausea over the last few days. Colon cancer diagnosis two weeks ago. Referring doctor is concerned for possible bowel obstruction. [facility] Diagnosis Counseling for control regarding intrauterine device (IUD)- Primary documented in this encounter [facility] Discharge instructions* Attachments The following attachments cannot be sent through Care Everywhere. * Colitis (Cuban) [facility] (n[facility]ative)* Outpatient Procedure (Routine) - Pending Review Specialty Diagnoses / Procedures Referred By Angela mello Referred To Contact [facility] Diagnoses Counseling for control regarding intrauterine device (IUD) Procedures INSERT INTRAUTERINE DEVICE LEVONORGESTREL IU 52MG 5 YR INSERT INTRAUTERINE DEVICE Fausto Acosta MD [address] [place] [place] [address] [facility] [address] [place] [address] Referral ID Status Reason Start Date Expiration Date Visits Requested Visits Authorized [id number] Pending Review Auto-Generat ed Referral 3 04/30/2024 1 1 [facility] Summary Purpose Family History No Family History Records FoundNo Family History Records FoundNo Family History Records Found Advance Directives No Advanced Directives Records FoundNo Advanced Directives Records FoundNo Advanced Directives Records Found Additional Source Comments INFORMATION SOURCE (unrecogn ized section and content) DATE CREATED AUTHOR AUTHOR'S ORGANIZ ATION 09/02/2022 [facility] DATE CREATED AUTHOR AUTHOR'S ORGANIZ ATION 08/04/2023 [facility] Reason for Visit (unrecogniz ed section and content) Reason Comments Medication Request Reason Comments Insertion Of IUD Scheduled Active and Recently Administ ered Medications (unrecognized section and content) PRN Medication Order 07/18/2022 07/19/2022 07/20/2022 Sodium chloride (PF) 0.9 % injection 1-100 mL (COMPLETED) 1-100 mL, Intravenous, ONCE NEEDED, 1 dose, Starting on Sun07/19/22 at 1939, Until Sun07/19/22 at 193, [place], [place] Procedure 1938 (Given - Provider: Peña Hoang) Care Teams (unrecognized sec tion and content) Source Comments (unrecognize d section and content) In the event this informatio n is protected by the Federal Confidentiality of Alcohol and Drug Abuse Patient Records regulations: The Federal rules restrict any use of the information to criminally investigate or prosecute any alcohol or drug abuse patient.[facility] System[facility] the event this information is protected by the Federal Confidentiality of Alcohol and Drug Abuse Patient Records regulations: The Federal rules restrict any use of the information to criminally investigate or prosecute any alcohol or drug abuse patient.[facility] FOR RECORDS PERTAINING TO PATIENTS WHO ARE OR HAVE BEEN ENROLLED IN A CHEMICAL DEPENDENCY/SUBSTANCEABUSE PROGRAM, SOME INFORMATION MAY BE OMITTED. This clinical summary was aggregated from multiple sources. Caution should be exercised in using it in the provision of clinical care. This summary normalizes information from multiple sources, and as a consequence, information in this document may materially change the coding, format and clinical context of patient data. In addition, data may be omitted in some cases. CLINICAL DECISIONS SHOULD BE BASED ON THE PRIMARY CLINICAL RECORDS. [facility] [employer] [facility]. provides no warranty or guarantee of the accuracy or completeness of information in this document.
[2023-08-30 08:59] LABS: Progesterone Level 0.27 ng/mL (See Comment)
[2023-08-30 09:03] LABS: Follicle Stimulating Hormone 4.9 mIU/mL; Free T3 2.7 pg/mL (2.18-3.98); Luteinizing Hormone 1.1 mIU/mL; Prolactin 12.2 ng/mL; T4 Free Direct 0.84 ng/dL (0.76-1.46); Thyroid Stim Hormone (TSH) 1.19 uIU/mL (0.358-3.74)
[2023-09-05 00:06] LABS: 17-Hydroxyprogesterone 32 ng/dL (.)
[2023-09-07 10:09] LABS: Adrenocorticotropic Hormone 33.9 pg/mL (7.2-63.3); Aldosterone, Serum 12.3 ng/dL (0.0-30.0); Estrogen, Total, Serum 107 pg/mL (.); Testosterone, % Free 2.77 % (0.50-2.80); Testosterone, Free 0.53 ng/dL (0.10-0.85); Testosterone, Total 19 ng/dL (4-50)
== END | disposition home or self-care (01) ==
PROVIDERS: PCP Family Medicine; Referring Provider Internal Medicine Gastroenterology; Visit Provider Internal Medicine Gastroenterology
DX: Z51.11 Encounter for antineoplastic chemotherapy (principal); C18.9 Malignant neoplasm of colon, unspecified
CPT/HCPCS: 36415; 82024; 82088; 82533; 82672; 83001; 83002; 83498; 84144; 84146; 84402; 84403; 84439; 84443; 84481

== ENCOUNTER → 2023-11-09 | Outpatient (CLI) | payer BC, SELFPAY ==
--- NOTE | 2023-11-09 08:06 | CT_ITS ---
STUDY: CT CHEST, ABDOMEN T PELVIS WITH CONTRAST REASON FOR EXAM: Female, 43 years old. Fatigue, SOB, h/o colon ca. Prior colectomy. RADIATION DOSAGE (If Supplied By Facility): CTDIvol = ( 15.9 ) mGy, DLP = ( 1618.56 ) mGycm TECHNIQUE: Transaxial imaging was performed following intravenous administration of IV 100mL Isovue-370. Individualized dose optimization techniques were used for this CT. COMPARISON: Comparison is made with prior CT scan of the thorax dated July 20, [address] scan of the abdomen and pelvis dated February 15, 2023.. FINDINGS: CHEST A right-sided portacatheter is seen with the tip in the superior vena cava. The lungs are normal. There is no demonstrated pleural abnormality. Normal heart and pericardium. Normal mediastinum. Normal hilar regions. Normal unenhanced pulmonary arteries. Normal aorta arch and descending thoracic aorta. There are degenerative changes of the thoracic spine. Fatty infiltration of the liver. ABDOMEN Normal liver. Normal gallbladder and extrahepatic biliary system. Normal spleen. Normal pancreas. Normal bilateral adrenal glands. Normal right kidney. Normal left kidney. Normal visualized stomach. Normal small intestine. The patient is status post right hemicolectomy. Normal abdominal aorta. Normal inferior vena cava. Normal retroperitoneum. Normal abdominal wall. Normal osseous structures. PELVIS Normal urinary bladder. Normal visualized small intestine. Normal visualized colon. There is no pelvic fluid. There is no pelvic lymphadenopathy or mass lesion. Normal visualized pelvic arteries. Normal abdominal wall. Normal osseous structures. CT/CT Chest, Abd, Pel w/Contrast IMPRESSION: Fatty infiltration of the liver. Status post right hemicolectomy. No evidence of metastatic disease seen at this time. Electronically Signed: Earl Palencia MD at 9:10 EDT ,
[2023-11-09] MEDS: 0.9% Saline Lock 10 ML Syringe IV (08:40)
== END | disposition home or self-care (01) ==
LOC: CT 08:06
PROVIDERS: PCP Family Medicine; Referring Provider Nurse Practitioner Family; Visit Provider Nurse Practitioner Family
DX: R53.83 Other fatigue (principal); R06.09 Other forms of dyspnea; Z85.038 Personal history of other malignant neoplasm of large intestine
CPT/HCPCS: 71260; 74177; Q9967; A4216

== ENCOUNTER → 2023-11-26 | Outpatient (CLI) | payer BC, SELFPAY ==
[2023-11-26 13:09] LABS: Cholesterol 120 mg/dL (200); High Density Lipoprotein 31 mg/dL; Triglycerides 143 mg/dL; Uric Acid 6.3 mg/dL (2.6-6.0); Very Low Density Lipoprotein 29 mg/dL (5-40)
== END | disposition home or self-care (01) ==
LOC: BIMLAB 08:43
PROVIDERS: PCP Internal Medicine; Referring Provider Internal Medicine; Visit Provider Internal Medicine
DX: M1A.9XX1 Chronic gout, unspecified, with tophus (tophi) (principal); E55.9 Vitamin D deficiency, unspecified; E78.2 Mixed hyperlipidemia
CPT/HCPCS: 36415; 80061; 82306; 84550

== ENCOUNTER → 2024-05-12 | Outpatient (CLI) | payer BC, SELFPAY ==
--- NOTE | 2024-05-12 08:04 | CT_ITS ---
HISTORY: IV/PO contrast; colon ca surveillance. TECHNIQUE: Helically acquired images were obtained of the chest, abdomen, and pelvis after the intravenous administration of 100 mL Isovue-370. Oral contrast also administered. 2-D reformatted images provided. A radiation dose optimization technique was used for this scan. 1293 images. COMPARISON: 11/09/2023, 02/15/2023. FINDINGS: ----Chest: LARGE AIRWAYS: Patent. LUNGS: Clear. PLEURA: No pneumothorax or significant pleural effusion. HEART AND PERICARDIUM: Heart within normal limits in size. No significant pericardial effusion. VESSELS: No thoracic aortic aneurysm or dissection flap. No large central central pulmonary embolism although study not performed with the pulmonary embolism protocol. Right chest wall port with tip in the superior vena cava. MEDIASTINUM AND JAVIER: No pathologically enlarged lymph nodes. Stable 6 mm right thyroid nodule. BONES: Intact. No suspicious osteoblastic or osteolytic lesion. ----Abdomen/Pelvis: BOWEL: Bowel nondilated. Right hemicolectomy. Unchanged appearance of right upper quadrant ileocolic anastomosis. PERITONEUM: No pathologically enlarged lymph nodes or significant ascites. LIVER: Fatty infiltration. No enhancing mass. GALLBLADDER/BILIARY TREE: Gallbladder present. SPLEEN/PANCREAS/ADRENAL GLANDS: Homogeneous and nonenlarged. KIDNEYS: 1 mm left interpolar and 2 mm left lower pole calculi without hydronephrosis. VESSELS: No abdominal aortic aneurysm. PELVIC ORGANS: 1.4 cm dominant follicle now seen in the left ovary. ABDOMINAL WALL: Tiny fat-containing ventral and umbilical hernias. BONES: Mild degenerative change without suspicious osteoblastic or osteolytic lesion. CT/CT Chest, Abd, Pel w/Contrast IMPRESSION: No evidence for metastatic disease in the chest, abdomen, or pelvis. Hepatic steatosis. Small nonobstructing left renal calculi. Electronically Signed: Vanessa Pritchard MD at 10:39 EDT ,
== END | disposition home or self-care (01) ==
LOC: CT 08:04
PROVIDERS: PCP Internal Medicine; Referring Provider Nurse Practitioner Family; Visit Provider Nurse Practitioner Family
DX: Z85.038 Personal history of other malignant neoplasm of large intestine (principal)
CPT/HCPCS: 71260; 74177; Q9967

== ENCOUNTER 2024-07-22 10:50 | Day surgery (SDC) | payer BC, SELFPAY ==
--- NOTE | 2024-07-21 12:15 | PAT.ANESEVAL ---
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 When Was Last Pacemaker Check QUESTION #4 FULL TEXT: You/Your Family Experience fever (hyperthermia) with Anesthesia Last Oral Intake Last Oral intake: Last Oral Intake NPO since Meds taken in AM with sips of water? 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 instructor Female Yes 07/21/24 08:39 HX of Motion Sickness No 07/21/24 08:39 HX of N/V After Surgery Yes 07/21/24 08:39 Non-Smoker Yes 07/21/24 08:39 Duration of Surgery greater No 07/21/24 08:39 than 60 minutes Number of Risk Factors 3 07/21/24 08:39 PONV Score Moderate Risk 07/21/24 08:39 Height & Weight Height & Weight: Anesthesia: Height & Weight Height 5 ft 6 in 11/26/23 08:05 Respiratory Assessment Respiratory Assessment - automotive collision repair instructor: Respiratory Tract Infection Hx - automotive collision repair instructor Hx Respiratory Tract Infection No 07/21/24 08:39 STOP Sleep Apnea STOP Sleep Apnea - automotive collision repair instructor: STOP Sleep Apnea - automotive collision repair instructor Hx Hypertension No 07/21/24 08:39 Hx Sleep Apnea No 07/21/24 08:39 CPAP BIPAP Do you snore loudly (louder No 07/21/24 08:39 than talking or can be heard Do you often feel tired/ No 07/21/24 08:39 fatigued/ sleepy during daytime? Has anyone observed you stop No 07/21/24 08:39 breathing during sleep? STOP Results Negative 07/21/24 08:39 QUESTION #5 FULL TEXT : Do you snore loudly (louder than talking or can be heard through closed doors)? 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 Specify any problems Hx of Preganancy in last 3 No 07/21/24 08:39 Months Nurse Filling Out Transfusion [email or web address] 07/21/24 08:39 & Questions: Date: 07/21/24 07/21/24 08:39 Time: 08:41 07/21/24 08:39 Patient unable to answer at this time (ie. confused, unrespo /Reproduction History /Reproductive History - automotive collision repair instructor: /Reproductive Hx- automotive collision repair instructor Hx Now Gestational Age (in weeks): EDC: Hx Hx Para Hx Section SAB No 07/21/24 08:39 PFSH Medical History Skin cancer Exertional dyspnea Fatigue History of colon cancer Encounter for insertion of venous access port Neuropathy Gout flare Cough Joint pain CINV (chemotherapy-induced nausea and vomiting) Mucositis (ulcerative) due to antineoplastic therapy Alcohol use Arthritis Low iron Hyperactive colon Non-smoker IUD complication Dysphagia GERD (gastroesophageal reflux disease) Home Medications ?Medication ?Instructions ?Recorded ?Last Taken ?Type lidocaine-prilocaine 2.5 %-2.5 % 1 applic topical ONCE PRN port 05/10/23 Unknown Rx topical cream access 30 days #30 grams diclofenac sodium 1 % topical gel 2 g topical TID PRN pain 10/31/23 Unknown History (Voltaren Arthritis Pain) digestive enzymes 1 cap PO DAILY 11/26/23 Unknown History glutamine 500 mg capsule 500 mg PO DAILY 11/26/23 Unknown History (L-Glutamine) vitamin B complex 1 cap PO DAILY 11/26/23 Unknown History Allergy/AdvReac Type Severity Reaction Status Date / Time Penicillins Allergy Severe anaphalaxis Verified 07/21/24 08:38 Sulfa (Sulfonamide Allergy Severe Rash Verified 07/21/24 08:38 Antibiotics) Family History Mother Hypertension Brother Hypertension Aunt Breast cancer Aunt Breast cancer Grandfather Cancer prostate Uncle Cancer possible colon Grandmother Cancer cancer in digestive Grandmother ALS (amyotrophic lateral sclerosis) Surgical History [place] teeth extracted Port-A-Cath in place Hx of right hemicolectomy History of dilation and curettage (~2006) H/O Moh's micrographic surgery for skin cancer Social History adopted: No household members: children number of children: 2 current occupational status: employed current occupation: [employer], [employer] pets and animals: Yes pets and animals: dog(s) Smoking Status: Never smoker Electronic Cigarette Use: not used alcohol intake: former details: never heavy drinker substance use type: does not use diet: other caffeine: Yes (1) Type: other frequency: 5-6 times per week do you feel safe at home: Yes Audit: Pertinent Findings Pertinent Findings Pulmonary function results/spirometer pertinent findings: Chest x-ray 02/22/2023 normal Recommendation Anesthesia Recommendation Anesthesia recommendation: OPTIMIZED for anesthesia
[2024-07-22] VITALS (9 sets, daily range): BP systolic 95–125; BP diastolic 64–73; PULSE 73–86; RESP 16; TEMP 36.9–37.4; O2SAT 94–98; BMI 30.7
[2024-07-22 11:12] LABS: Internal QC Validated? YES +Cl - CLEAR BKGD; Pregnancy, Urine Negative Negative
--- NOTE | 2024-07-22 11:16 | PRE.ANES_ITS ---
ASA Classification* ASA Classification ASA Classification: 2 Assessment & Plan Anesthesia* Anesthesia Assessment Anesthesia Assessment: Discussed sedation and/or anesthesia options, risks, benefits, and alternatives with patient/parents/legal guardian/POA. Questions invited. The patient/parents/legal guardian/POA seems to understand and agrees to proceed with anesthesia plan. Reviewed the physical assessment, medical history, allergy history and patient home medications list prior to surgery/procedure/anesthetic and documented any changes. Performed airway and anesthesia risk assessments. Anesthesia Type Anesthesia Type: MAC History Source History Obtained from:: Patient and Chart Anesthesia Focused Assessment* Temperature: 98.5 F Pulse Rate: 86 Blood Pressure: 125/72 Respiratory Rate: 16 Pulse Ox: 98 Oxygen Delivery Method: Room Air Airway Assessment Mouth opens: 2 cm Mallampati Score: IV Teeth Condition: Missing (Patient is missing a couple of molars on the right upper. Rest of the teeth are tight.) Neck Range of motion (ROM): Limited ROM (Somewhat decreased extension) Focused Labs Anesthesia Preop lab: CBC WBC 7.8 K/mm3 (4.4-11.0) 05/12/24 08:00 RBC 4.63 M/mm3 (4.2-5.4) 05/12/24 08:00 Hgb 13.8 g/dL (12.0-15.0) 05/12/24 08:00 Hct 39.5 % (37-47) 05/12/24 08:00 Plt Count 308 K/mm3 (150-450) 05/12/24 08:00 CHEMISTRY Potassium 4.1 mmol/L (3.5-5.1) 05/12/24 08:00 Sodium 142 mmol/L (136-145) 05/12/24 08:00 Magnesium 2.0 mg/dL (1.6-2.6) 01/24/23 08:02 Phosphorus 5.1 mg/dL (2.5-4.9) H 01/24/23 08:02 BUN 11 mg/dL (7-18) 05/12/24 08:00 Creatinine 0.80 mg/dL (0.55-1.02) 05/12/24 08:00 Glucose 110 mg/dL (74-106) H 05/12/24 08:00 TSH 1.19 uIU/mL (0.358-3.74) 08/30/23 08:11 COAG PT 13.1 SECONDS (11.7-14.9) 06/24/20 10:22 Urine Test Negative Negative 07/22/24 11:03 Pre-Assessment Diagnosis/Proposed Procedure Planned Operative Procedure(s): COLONOSCOPY Anesthesia History 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 When Was Last Pacemaker Check QUESTION #4 FULL TEXT: You/Your Family Experience fever (hyperthermia) with Anesthesia Last Oral Intake Last Oral intake: Last Oral Intake NPO since 07:00 07/22/24 11:09 Meds taken in AM with sips of No 07/22/24 11:09 water? Meds patient instructed to take am of surgery Any additional information?: Yes NPO since: 07:00 (Patient finished prep at 7 AM.) PONV PONV - karate black belt: PONV - karate black belt Female Yes 07/21/24 08:39 HX of Motion Sickness No 07/21/24 08:39 HX of N/V After Surgery Yes 07/21/24 08:39 Non-Smoker Yes 07/21/24 08:39 Duration of Surgery greater No 07/21/24 08:39 than 60 minutes Number of Risk Factors 3 07/21/24 08:39 PONV Score Moderate Risk 07/21/24 08:39 Height & Weight Height & Weight: Anesthesia: Height & Weight Height 5 ft 6 in 07/22/24 11:09 Weight: 86.2 kg 07/22/24 11:09 Body Mass Index (BMI) 30.7 07/22/24 11:09 Respiratory Assessment Respiratory Assessment - karate black belt: Respiratory Tract Infection Hx - karate black belt Hx Respiratory Tract Infection No 07/21/24 08:39 STOP Sleep Apnea STOP Sleep Apnea - karate black belt: STOP Sleep Apnea - karate black belt Hx Hypertension No 07/21/24 08:39 Hx Sleep Apnea No 07/21/24 08:39 CPAP BIPAP Do you snore loudly (louder No 07/21/24 08:39 than talking or can be heard Do you often feel tired/ No 07/21/24 08:39 fatigued/ sleepy during daytime? Has anyone observed you stop No 07/21/24 08:39 breathing during sleep? STOP Results Negative 07/21/24 08:39 QUESTION #5 FULL TEXT : Do you snore loudly (louder than talking or can be heard through closed doors)? 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 Specify any problems Hx of Preganancy in last 3 No 07/21/24 08:39 Months Nurse Filling Out Transfusion [email or web address] 07/21/24 08:39 & Questions: Date: 07/21/24 07/21/24 08:39 Time: 08:41 07/21/24 08:39 Patient unable to answer at this time (ie. confused, unrespo /Reproduction History /Reproductive History - karate black belt: /Reproductive Hx- karate black belt Hx Now Gestational Age (in weeks): EDC: Hx Hx Para Hx Section SAB No 07/21/24 08:39 PFSH Medical History Skin cancer Exertional dyspnea Fatigue History of colon cancer Encounter for insertion of venous access port Neuropathy Gout flare Cough Joint pain CINV (chemotherapy-induced nausea and vomiting) Mucositis (ulcerative) due to antineoplastic therapy Alcohol use Arthritis Low iron Hyperactive colon Non-smoker IUD complication Dysphagia GERD (gastroesophageal reflux disease) Home Medications ?Medication ?Instructions ?Recorded ?Last Taken ?Type lidocaine-prilocaine 2.5 %-2.5 % 1 applic topical ONCE PRN port 05/10/23 Unknown Rx topical cream access 30 days #30 grams diclofenac sodium 1 % topical gel 2 g topical TID PRN pain 10/31/23 Unknown History (Voltaren Arthritis Pain) digestive enzymes 1 cap PO DAILY 11/26/23 Unknown History glutamine 500 mg capsule 500 mg PO DAILY 11/26/23 Unknown History (L-Glutamine) vitamin B complex 1 cap PO DAILY 11/26/23 Unknown History Allergy/AdvReac Type Severity Reaction Status Date / Time Penicillins Allergy Severe anaphalaxis Verified 07/21/24 08:38 Sulfa (Sulfonamide Allergy Severe Rash Verified 07/21/24 08:38 Antibiotics) Family History Mother Hypertension Brother Hypertension Aunt Breast cancer Aunt Breast cancer Grandfather Cancer prostate Uncle Cancer possible colon Grandmother Cancer cancer in digestive Grandmother ALS (amyotrophic lateral sclerosis) Surgical History [place] teeth extracted Port-A-Cath in place Hx of right hemicolectomy History of dilation and curettage (~2006) H/O Moh's micrographic surgery for skin cancer Social History adopted: No household members: children number of children: 2 current occupational status: employed current occupation: [employer], [employer] pets and animals: Yes pets and animals: dog(s) Smoking Status: Never smoker Electronic Cigarette Use: not used alcohol intake: former details: never heavy drinker substance use type: does not use diet: other caffeine: Yes (1) Type: other frequency: 5-6 times per week do you feel safe at home: Yes Review of Systems (Anesthesia) ROS Narrative System reviewed and no additional complaints, except as documented.
--- NOTE | 2024-07-22 11:17 | PCM.HP.STD ---
HPI - General General Date of Admission: 07/22/24 Date of Service: 07/22/24 HPI Narrative ABHI STEPHENS, is a 44 F who presentsDOGREGORIO STEPHENS, is a 43 F who presents to the office today for FH colon cancer [facility] ED 06.22.22 with worsening abdominal pain following IUD removal day prior. CT abd/pel 06.22.22 noting short segment colonic wall irregular thickening at hepatic flexure with mild associated inflammatory stranding and at least one prominent medial pericolonic lymph node raising suspicion for cancer with metastasis. *[facility]I established 06.23.22 following [facility] ED as noted above.?? Colonoscopy 07.04.22 noting stricture at hepatic flexure; malignant partially obstructing tumor at hepatic flexure; malignant appearing tumor of colon. Pathology invasive adenocarcinoma, well differentiated. [facility] oncology Dr. Mao 07.12.22 for colon cancer. No clinical evidence of metastatic disease; would like [facility] for surgical management. ? CT chest 07.20.22 without acute/chronic finding. No evidence of metastatic disease. ? Biochemical CEA 140 [facility] ED 07.19.22 with abdominal pain. Workup indicative of colitis; admission offered and declined. CT abd/pel fatty infiltration of liver; inflammatory changes surrounding cecum and ascending colon with mild adjacent mesenteric inflammation and thickening of ascending colon may correlate with known neoplasm versus colitis. [facility] 07.25.22 with severe N/V consult with [facility] as [facility] ED was not satisfactory. [facility] 07.25.22 with concern for large bowel obstruction at hepatic flexure r/t tumor; hospitalization recommended for IVF and NG tube decompression and possible exploratory laparoscopy with right colectomy. [facility] Hospitalization 07.25.22-07.29.22 with plan as above. Laparoscopic colon surgery with completion via hand assist 07.26.22 right colon grossly distended with small bowel mildly distended; right colectomy performed with [id number] anastomosis with functional ileocolonic anastomosis. ? Pathology invasive adenocarcinoma pT3 [id number] IIIB. [facility] with FOLFOX started 08.23.22. GI outpatient: ? Colonoscopy 07.04.23 end-to-side ileo-colonic anastomosis with erythema, mild glandular architectural changes without malignancy. OV 1.24.24 has had one episode of blood in stool; oncologist recommend no more raw vegetables and she has been doing well with this. RUQ/left mid abdominal discomforts occur approximately once a week and resolve spontaneously. [facility] Medical History Skin cancer Exertional dyspnea Fatigue History of colon cancer Encounter for insertion of venous access port Neuropathy Gout flare Cough Joint pain CINV (chemotherapy-induced nausea and vomiting) Mucositis (ulcerative) due to antineoplastic therapy Alcohol use Arthritis Low iron Hyperactive colon Non-smoker IUD complication Dysphagia GERD (gastroesophageal reflux disease) Home Medications ?Medication ?Instructions ?Recorded ?Last Taken ?Type lidocaine-prilocaine 2.5 %-2.5 % 1 applic topical ONCE PRN port 05/10/23 Unknown Rx topical cream access 30 days #30 grams diclofenac sodium 1 % topical gel 2 g topical TID PRN pain 10/31/23 Unknown History (Voltaren Arthritis Pain) digestive enzymes 1 cap PO DAILY 11/26/23 Unknown History glutamine 500 mg capsule 500 mg PO DAILY 11/26/23 Unknown History (L-Glutamine) vitamin B complex 1 cap PO DAILY 11/26/23 Unknown History Allergy/AdvReac Type Severity Reaction Status Date / Time Penicillins Allergy Severe anaphalaxis Verified 07/21/24 08:38 Sulfa (Sulfonamide Allergy Severe Rash Verified 07/21/24 08:38 Antibiotics) Family History Mother Hypertension Brother Hypertension Aunt Breast cancer Aunt Breast cancer Grandfather Cancer prostate Uncle Cancer possible colon Grandmother Cancer cancer in digestive Grandmother ALS (amyotrophic lateral sclerosis) Surgical History [place] teeth extracted Port-A-Cath in place Hx of right hemicolectomy History of dilation and curettage (~2006) H/O Moh's micrographic surgery for skin cancer Social History adopted: No household members: children number of children: 2 current occupational status: employed current occupation: [employer], [employer] pets and animals: Yes pets and animals: dog(s) Smoking Status: Never smoker Electronic Cigarette Use: not used alcohol intake: former details: never heavy drinker substance use type: does not use diet: other caffeine: Yes (1) Type: other frequency: 5-6 times per week do you feel safe at home: Yes ROS Constitutional Constitutional: Denies fatigue, fever(s), poor appetite, weight gain or weight loss Gastrointestinal Gastrointestinal: Denies belching, bloating, change in bowel habits, change in stool character, chewing difficulty, coffee ground emesis, constipation, cramping, diarrhea, dyspepsia, dysphagia, early satiety, excessive flatus, fecal incontinence, heartburn, hematemesis, hematochezia, hemorrhoids, loose stools, melena, nausea, odynophagia, rectal bleeding, tenesmus, vomiting or weight changes Vital Signs Vital Signs Vital Signs: 07/22/24 11:07 07/22/24 11:09 Temperature 98.5 F Temperature Source Temporal Pulse Rate 86 Respiratory Rate 16 Respiratory Pattern Normal Blood Pressure 125/72 H Blood Pressure Mean 89 Blood Pressure Source Monitor Blood Pressure Position Semi-Fowlers Blood Pressure Location Left Arm Pulse Ox 98 Oxygen Delivery Method Room Air Weight Weight: 190 lb 0.615 oz Body Mass Index (BMI) 30.7 Physical Exam Const alert, oriented x3, no apparent distress and healthy appearing General Appearance: cooperative GI normal to inspection, nondistended, normoactive bowel sounds, soft to palpation, non-tender and non-distended Percussion: normal to percussion Rectal Exam: deferred Results Lab / Micro Data Labs: Laboratory Results - last 24 hr 07/22/24 11:03: Urine Test Negative Assessment & Plan Assessment/Plan (1) Colon cancer: QUALIFIERS: Colon location: hepatic flexure Qualified Code(s): C18.3 - Malignant neoplasm of hepatic flexure PLAN: Assessment and Plan Assessment and Plan (1) Colon cancer: Status: Chronic Qualifiers: Colon location: hepatic flexure Qualified Code(s): C18.3 - Malignant neoplasm of hepatic flexure Plan: She underwent repeat colonoscopy for surveillance of her colon cancer diagnosed approximately a year ago. On her colonoscopy she was discovered to have normal colonic anastomosis from a right hemicolectomy. She did have some inflammation around the anastomotic site. Biopsies were taken and images showed normal healing without any signs of recurrent colon cancer or dysplastic tissue. She has been having some intermittent cramping and abdominal pain that I think is mostly diet related. She did talk with her oncologist and he suggested for her to not eat of vegetables as it may be difficult for her to process. She is okay with changing her diet. She will need a repeat anoscopy in approximately 1 year for surveillance of her colon cancer. She is okay with that plan. (2) Colon wall thickening: Status: Inactive Orders: Orders 17-Hydroxyprogesterone Today Z51.11 - Encounter for antineoplastic chemotherapy CORTISOL SERUM Today Z51.11 - Encounter for antineoplastic chemotherapy Adrenocorticotropic Hormone Today Z51.11 - Encounter for antineoplastic chemotherapy Aldosterone, Serum Today Z51.11 - Encounter for antineoplastic chemotherapy Estrogen, Total, Serum Today Z51.11 - Encounter for antineoplastic chemotherapy Testosterone, Total / Free Today Z51.11 - Encounter for antineoplastic chemotherapy Thyroid Stim Hormone (TSH) Today Z51.11 - Encounter for antineoplastic chemotherapy Free T3 Today Z51.11 - Encounter for antineoplastic chemotherapy T4 Free Direct Today Z51.11 - Encounter for antineoplastic chemotherapy FSH and LH Today Z51.11 - Encounter for antineoplastic chemotherapy Prolactin Today Z51.11 - Encounter for antineoplastic chemotherapy Progesterone Level Today C18.9 - Malignant neoplasm of colon, unspecified
--- NOTE | 2024-07-22 12:00 | COLBX_PTH ---
PATIENT: ABHI STEPHENS LOC: EN U#:[id number] AGE/SX: 44/F ROOM: RE07/22/[address]: Dr. Jay Valiente DO : 1980 BED: DIS: 07/22/2024 SPEC #: [id number] RECD: 07/22/24 13:58 STATUS: GEOVANY LUJaclyn #: [id number] VANESSA: 07/22/24 12:[address]: Jay Valiente DEPT: SURGICAL PATHOLOGY RECD BY: Silvia Keane ENTERED: 07/23/24 09:03 SP TYPE: COLON BX OTHR DR: Dr. Didi Shaw MD Tissues: COLON BIOPSY Procedures: Surgery Specimen Level IV HEADER OPERATION: Colonoscopy, biopsy PRE-OP DIAGNOSIS: Colon cancer TISSUE SUBMITTED: Anastomosis biopsy MICROSCOPIC DIAGNOSIS Anastomosis, biopsy: Fragments of small intestinal and colonic mucosa, no pathologic diagnosis. 07/24/2024 COMMENT Please make reference to previous specimen right colon, right colectomy with diagnosis of invasive adenocarcinoma. Clinical correlation and appropriate follow up are necessary. MICROSCOPIC DESCRIPTION Slides are reviewed. GROSS DESCRIPTION Received in fixative is one container labeled with the patient's name and designated Anastomosis biopsy. The specimen consists of multiple irregular fragments of light mckeon soft tissue that in aggregate measure 1.5 x 0.5 x 0.1 cm. The specimen is totally submitted in one cassette. 07/23/2024 TC:4 CPT:44199
--- NOTE | 2024-07-22 12:44 | OP.COLON_ITS ---
Patient Name: Magnolia Vail Procedure Date: 07/22/2024 12:17 PM Date of : 1980 Age: 44 Procedure: Colonoscopy Indications: High risk colon cancer surveillance: Personal history of colon cancer Providers: Jay Valiente DO Referring MD: Jay Valiente DO Medicines: Monitored Anesthesia Care Patient Profile: This is a 44 year old female. Refer to note in patient chart for documentation of history and physical. Last Colonoscopy: 1 year ago. Complications: No immediate complications. Procedure: Pre-Anesthesia Assessment: - Prior to the procedure, a History and Physical was performed, and patient medications and allergies were reviewed. The patient is competent. The risks and benefits of the procedure and the sedation options and risks were discussed with the patient. All questions were answered and informed consent was obtained. Patient identification and proposed procedure were verified by the physician in the pre-procedure area. Mental Status Examination: alert and oriented. Airway Examination: normal oropharyngeal airway and neck mobility. Respiratory Examination: clear to auscultation. CV Examination: normal. Prophylactic Antibiotics: The patient does not require prophylactic antibiotics. Prior Anticoagulants: The patient has taken no anticoagulant or antiplatelet agents. ASA Grade Assessment: II - A patient with mild systemic disease. After reviewing the risks and benefits, the patient was deemed in satisfactory condition to undergo the procedure. The anesthesia plan was to use monitored anesthesia care (MAC). Immediately prior to administration of medications, the patient was re-assessed for adequacy to receive sedatives. The heart rate, respiratory rate, oxygen saturations, blood pressure, adequacy of pulmonary ventilation, and response to care were monitored throughout the procedure. The physical status of the patient was re-assessed after the procedure. After I obtained informed consent, the scope was passed under direct vision. Throughout the procedure, the patient's blood pressure, pulse, and oxygen saturations were monitored continuously. The Colonoscope was introduced through the anus and advanced to the ileocolonic anastomosis. The colonoscopy was performed without difficulty. The patient tolerated the procedure well. The quality of the bowel preparation was adequate. The terminal ileum was photographed. Scope In: 12:26:14 PM Scope Withdrawal Time 0 hours 6 minutes 15 seconds Scope Out: 12:34:58 PM Total Procedure Duration Time 0 hours 8 minutes 44 seconds Findings: The perianal and digital rectal examinations were normal. There was evidence of a prior end-to-side ileo-colonic anastomosis at the hepatic flexure. This was patent and was characterized by healthy appearing mucosa. The anastomosis was traversed. Biopsies were taken with a cold forceps for histology. Verification of patient identification for the specimen was done. Estimated blood loss was minimal. Impression: - Patent end-to-side ileo-colonic anastomosis, characterized by healthy appearing mucosa. Biopsied. Recommendation: - Discharge patient to home. - Resume previous diet. - Continue present medications. - Await pathology results. - Repeat colonoscopy in 3 years for surveillance. Procedure Code(s): --- Professional --- 78193, Colonoscopy, flexible; with biopsy, single or multiple CPT copyright 2021 [employer]. All rights reserved. The codes documented in this report are preliminary and upon family psychologist review may be revised to meet current compliance requirements. Jay Valiente DO 07/22/2024 12:43:54 PM This report has been signed electronically. Number of Addenda: 0 Note Initiated On: 07/22/2024 12:17 PM
--- NOTE | 2024-07-22 12:44 | OP.CCLET_ITS ---
07/22/2024 Didi Shaw Md Re : Colonoscopy procedure for Magnolia V[place] Dear Valeria This procedure was performed on Monday, July 22, 2024. My impressions and recommendations are as follows: Impressions : - Patent end-to-side ileo-colonic anastomosis, characterized by healthy appearing mucosa. Biopsied. Recommendations : - Discharge patient to home. - Resume previous diet. - Continue present medications. - Await pathology results. - Repeat colonoscopy in 3 years for surveillance. My findings are described in the full procedure note, which is enclosed. If I can be of further assistance, please feel free to contact me at . Sincerely, Jay Valiente, 07/22/2024 12:43:54 PM This report has been signed electronically.
--- NOTE | 2024-07-22 12:44 | PCM.POST.ANE ---
Anesthesia: Postop Eval I Current Vital Signs Temperature: 98.6 F Pulse Rate: 84 Blood Pressure: 95/67 Respiratory Rate: 16 Pulse Ox: 96 Oxygen Delivery Method: Room Air Assessment Airway patent: Yes Spontaneous unlabored respirations: Yes Mental status: Awake and Calm nausea: No Vomiting: No Anesthesia Complication: No Fluid Hydration Crystalloid volume administer (ml): 40 Total IV fluid infused: 40 Progress Note Anesthesia document: Postop Eval 1 completed: Yes
--- NOTE | 2024-07-22 15:51 | PCM.POSTANE2 ---
Anesthesia Postop Eval I Sum Postop Eval Completion status Anesthesia document: Postop Eval 1 completed: Yes Anesthesia Postop Eval I Summary Anesthesia Postop Eval I Summary: Anesthesia Postop Eval I: Assessment Summary Airway patent Yes 07/22/24 12:44 [email or web address] Spontaneous unlabored Yes 07/22/24 12:44 [email or web address] respirations Mental status Awake,Calm 07/22/24 12:44 [email or web address] nausea No 07/22/24 12:44 [email or web address] Vomiting No 07/22/24 12:44 [email or web address] Anesthesia Postop Eval I: Fluid Summary Crystalloid volume administer 40 07/22/24 12:44 [email or web address] (ml) Colloids volume administered ( ml) Blood Product volume administered (ml) Total IV fluid infused 40 07/22/24 12:44 [email or web address] Anesthesia Postop Eval I: Summary Notes Anesthesia Complication No 07/22/24 12:44 [email or web address] Anesthesia Complication Comment: Post-operative progress note Anesthesia: Postop Eval II Evaluation Mental status: Awake and Calm Pain Level: 0 nausea: No Vomiting: No Complications Anesthesia Complication: No
== END 2024-07-22 13:24 | disposition home or self-care (01) ==
LOC: EN 10:51 → AC 10:53
PROVIDERS: Anesthesiology; PCP Internal Medicine; Referring Provider Internal Medicine; Visit Provider Internal Medicine Gastroenterology
PROC: 0DJD8ZZ Inspection of Lower Intestinal Tract, Via Natural or Artificial Opening Endoscopic (ICD-10-PCS; CPT 45378; principal; 2024-07-22 11:55)
DX: Z12.11 Encounter for screening for malignant neoplasm of colon (principal); Z80.0 Family history of malignant neoplasm of digestive organs; K21.9 Gastro-esophageal reflux disease without esophagitis; Z85.038 Personal history of other malignant neoplasm of large intestine; Z90.49 Acquired absence of other specified parts of digestive tract; Z98.0 Intestinal bypass and anastomosis status
CPT/HCPCS: 45380; 81025; 88305; A4216; J2405

== ENCOUNTER → 2024-08-07 | Outpatient (CLI) | payer BC, SELFPAY ==
--- NOTE | 2024-08-07 09:15 | BI_ITS ---
MAMMOGRAPHY - BILATERAL SCREENING REASON FOR EXAM: Female, 44 years old. Routine annual screening examination. PERTINENT HISTORY: Aunts with breast cancer. History of colon cancer. TECHNIQUE: Digital bilateral breast shay (3D mammographic acquisition) in the CC and MLO projections. 2-D mediolateral oblique (MLO) and craniocaudad (CC) views of both breasts were obtained. CAD: Full Field Digital Mammography with Computer Added Detection was performed. COMPARISON: Comparison is made with prior study dated May 22, 2023 and December 01, 2019 FINDINGS: Breast Composition: The breasts are heterogeneously dense, which may obscure small masses. There are no dominant masses or suspicious calcifications. No other significant abnormalities are identified. There has been no significant change since the prior study. BI/SCRN MAMM (CAD)W/SHAY BILAT IMPRESSION: Stable bilateral screening mammogram. Yearly follow-up mammogram recommended. (A) ASSESSMENT CATEGORY: BIRADS Category 1: Negative. A letter regarding these results will be sent to the patient by the facility within 30 days. Approximately 10% of breast cancers are not detected by mammography. A normal mammogram should not delay biopsy of a clinically suspicious abnormality. [id number] Electronically Signed: Earl Palencia MD at 10:40 EST ,
== END | disposition home or self-care (01) ==
LOC: OPBI 09:10
PROVIDERS: PCP Internal Medicine; Referring Provider Obstetrics & Gynecology; Visit Provider Obstetrics & Gynecology
DX: Z12.31 Encounter for screening mammogram for malignant neoplasm of breast (principal)
CPT/HCPCS: 77063; 77067

== ENCOUNTER → 2024-11-03 | Outpatient (CLI) | payer BC, SELFPAY ==
--- NOTE | 2024-11-03 08:26 | CT_ITS ---
PROCEDURE: CT CHEST, ABD, PEL W/CONTRAST 11/03/2024 REASON FOR EXAM: HX OF COLON CA-IV ONLY Prior hemicolectomy. TECHNIQUE: Chest, abdomen and pelvis CT with intravenous contrast. Coronal and Sagittal reconstruction series were provided. One or more dose reduction techniques were used (e.g., Automated exposure control, adjustment of the mA and/or kV according to patient size, use of iterative reconstruction technique. PATIENT PREPARATION: Per protocol ORAL CONTRAST TYPE: Given CONTRAST: Isovue-300 VOLUME: 94mL RADIATION DOSE SUMMARY: CTDlvol: 17 mGy DLP: 1595.83 mGycm COMPARISON: Comparison is made with prior study dated May 12, 2024. FINDINGS: CT CHEST: Hardware: None 7.5 mm hypodense nodule in the right lobe of the thyroid. This is unchanged. Lymph nodes: Unremarkable. Heart and Vasculature: Heart is nonenlarged. No evidence of pericardial effusion. No coronary artery calcification. Lungs and Airways: Mild dependent atelectasis. Pleura: Unremarkable Bones: Degenerative changes of the thoracic spine. CT ABDOMEN/PELVIS: Liver: Diffuse fatty infiltration. Gallbladder: Unremarkable. Spleen: Normal size. Pancreas: Normal size without evidence of mass surrounding inflammation or ductal dilation. Adrenals: Unremarkable Kidneys: Stable tiny nonobstructive left intrarenal calculi. Bladder: Unremarkable Reproductive Organs: IUD is seen within the endometrium. There is a 1.9 cm follicle in the right ovary. Bowel: Status post right hemicolectomy. Stable small fat containing ventral umbilical hernia. Appendix: Unremarkable Lymph nodes: Unremarkable. Vasculature: The abdominal aorta and IVC are normal. Peritoneum / Retroperitoneum: Unremarkable Bones: Degenerative changes of the spine. CT/CT Chest, Abd, Pel w/Contrast IMPRESSION: Stable examination. Fatty infiltration of the liver. Reading Location: [place] [id number]
== END | disposition home or self-care (01) ==
LOC: CT 08:26
PROVIDERS: PCP Internal Medicine; Referring Provider Internal Medicine Medical Oncology; Visit Provider Internal Medicine Medical Oncology
DX: C18.9 Malignant neoplasm of colon, unspecified (principal)
CPT/HCPCS: 71260; 74177; Q9967

== ENCOUNTER 2025-01-06 11:41 | Emergency (ER) | payer SELFPAY ==
[2025-01-06 11:42] VITALS: BP 167/87; PULSE 99; RESP 16; TEMP 36.7; O2SAT 99; BMI 29.0
[2025-01-06 12:36] LABS: Absolute Lymphocyte Count 2.45 X10^3/uL (0.83-4.51); Absolute Neutrophil Count 4.7 X10^3/uL (2.0-7.7); Basophil# 0.05 X10^3/uL; Basophil% 0.6 % (0-1); Eosinophil# 0.64 X10^3/uL; Eosinophils% 7.5 % (0-5); Hematocrit 37.7 % (37-47); Hemoglobin 13.1 g/dL (12.0-15.0); Lymphocyte # 2.45 X10^3/ul (0.83-4.51); Lymphocyte % 28.6 % (19-41); Mean Corp Hgb Conc 34.7 g/dL (32-36); Mean Corpuscular Hgb 29.8 pg (27.0-32.0); Mean Corpuscular Volume 85.7 fL (81-99); Mean Platelet Vol. 9.1 fl (6.2-12.0); Monocyte% 8.2 % (0-10); NRBC Flagged by Analyzer 0 % (0-5); Neutrophil # 4.71 X10^3/uL (2.7-7.7); Neutrophil % 54.8 % (47-70); Platelet Count 304 K/mm3 (150-450); RBC Distribution Width CV 12.5 % (11.6-14.6); RBC Distribution Width SD 38.8 fl (35.1-43.9); White Blood Count 8.6 K/mm3 (4.4-11.0)
[2025-01-06] MEDS: 0.9% Normal Saline (1000mL) 1,000 ML 999 ML IV (12:37)
[2025-01-06 12:41] LABS: Bacteria 0 SEEN /hpf (None Seen); Mucous, Urine 0 SEEN /hpf (<or=2+); Red Blood Cells-Urine 0 SEEN /hpf (0-5)
--- NOTE | 2025-01-06 12:50 | EDS_ITS ---
HPI History of Present Illness Chief Complaint: Abd Pain Narrative Narrative: Patient is a 44-year-old female past medical history of colon cancer status post colectomy on chemotherapy, neuropathy, GERD who presented to the emergency department chief complaint abdominal pain nausea vomiting. Patient states that she was at work earlier and noted that she developed nausea and when vomited and had abdominal pain associated with this. Given her history of colon cancer her coworkers were concerned as well as she was therefore she came down here to be evaluated. Patient denies any sick contacts. States that yesterday she felt well as well as this morning when she woke up. [facility] Medical History Skin cancer Exertional dyspnea Fatigue History of colon cancer Encounter for insertion of venous access port Neuropathy Gout flare Cough Joint pain CINV (chemotherapy-induced nausea and vomiting) Mucositis (ulcerative) due to antineoplastic therapy Alcohol use Arthritis Low iron Hyperactive colon Non-smoker IUD complication Dysphagia GERD (gastroesophageal reflux disease) Home Medications ?Medication ?Instructions ?Recorded ?Last Taken ?Type lidocaine-prilocaine 2.5 %-2.5 % 1 applic topical ONCE PRN port 05/10/23 Unknown Rx topical cream access 30 days #30 grams diclofenac sodium 1 % topical gel 2 g topical TID PRN pain 10/31/23 Unknown History (Voltaren Arthritis Pain) digestive enzymes 1 cap PO DAILY 11/26/23 Unkn own History glutamine 500 mg capsule 500 mg PO DAILY 11/26/23 Unk nown History (L-Glutamine) vitamin B complex 1 cap PO DAILY 11/26/23 Unkn own History dicyclomine 20 mg tablet 20 mg PO TID #20 tabs Unknown Rx ondansetron 4 mg disintegrating 4 mg PO Q6H PRN nausea and 01/06/25 Unknown Rx tablet vomiting #20 tabs Allergy/AdvReac Type Severity Reaction Status Date / Time Penicillins Allergy Severe anaphalaxis Verified 01/06/25 11:43 Sulfa (Sulfonamide Allergy Severe Rash Verified 01/06/25 11:43 Antibiotics) Family History Mother Hypertension Brother Hypertension Aunt Breast cancer Aunt Breast cancer Grandfather Cancer prostate Uncle Cancer possible colon Grandmother Cancer cancer in digestive Grandmother ALS (amyotrophic lateral sclerosis) Surgical History Sharon teeth extracted Port-A-Cath in place Hx of right hemicolectomy History of dilation and curettage (~2006) H/O Moh's micrographic surgery for skin cancer Social History adopted: No household members: children number of children: 2 current occupational status: employed current occupation: [employer], [employer] pets and animals: Yes pets and animals: dog(s) Smoking Status: Never smoker Electronic Cigarette Use: not used alcohol intake: former details: never heavy drinker substance use type: does not use diet: other caffeine: Yes (1) Type: other frequency: 5-6 times per week do you feel safe at home: Yes ROS ROS ED ROS Narrative Constitutional: Denies fevers, chills, headaches Cardiovascular: Denies chest pain Respiratory: Denies shortness of breath Abdomen: Complaint of abdominal pain nausea vomiting as noted above but states that this is resolved states that she is passing gas had a bowel movement this morning that was normal : Denies urinary symptoms Neurological: Denies numbness, weakness, tingling Musculoskeletal: Denies back pain Skin: Denies rashes or lesions EXAM Physical Exam Narrative Exam Narrative: General: Patient lying bed resting comfortably did not appear to be in acute distress Head: Atraumatic, normocephalic Eyes: PERRL bilaterally, EOMI bilateral, no conjunctival injection noted Neck: Soft, supple, trachea midline Cardiovascular: Regular rate rhythm Respiratory: Clear to auscultation bilaterally Abdomen: Soft, nondistended, mild tenderness palpation left lower quadrant no rebound or guarding on exam Extremities: +5/5 strength noted in bilateral upper and extremities Neurological: Patient following commands knew that she was at [facility] year is 2024 Skin: Warm, dry contact no rashes or lesions noted Const Vital Signs: 01/06/25 11:42 01/06/25 14:00 Temperature 98.1 F Temperature Source Oral Pulse Rate 99 79 Respiratory Rate 16 18 Blood Pressure 167/87 H 132/60 H Blood Pressure Mean 113 84 Pulse Ox 99 99 Oxygen Delivery Method Room Air MDM MDM MDM Narrative Medical decision making narrative: Patient is a 44-year-old female who presents to the emergency department chief complaint abdominal pain nausea vomiting which has since resolved. On the differential diagnose includes but not limited to viral gastroenteritis, diverticulitis, bowel obstruction. Once workup is obtained reviewed she will be reevaluated. Patient states that she does not need anything for pain or nausea or now Patient CBC reviewed showed no evidence leukocytosis white count normal 8.6, he was 13.1, plate count 304. Patient's sodium was 140, potassium normal at 3.8, creatinine normal at 0.71. Patient's AST and ALT were normal at 27 and 33 respectively. Patient lipase normal at 38. Patient urinalysis reviewed showed no evidence of infection. Patient CT ab pelvis without contrast reviewed showed no acute findings. On reevaluation the patient she is feeling better she would like to go home at this point time. Patient was advised to return with worsening symptoms or concerns. She was advised to follow with her primary care physician outpatient setting otherwise. She will be given prescription for Zofran and Bentyl. All question concerns answered she was discharged home in stable condition. Lab Data Labs: Laboratory Results - last 24 hr 01/06/25 01/06/25 12:25 12:34 WBC 8.6 RBC 4.40 Hgb 13.1 Hct 37.7 MCV 85.7 MCH 29.8 MCHC 34.7 RDW Std Deviation 38.8 RDW Coeff of Nazanin 12.5 Plt Count 304 MPV 9.1 Immature Gran % (Auto) 0.300 Neut % (Auto) 54.8 Lymph % (Auto) 28.6 [place] % (Auto) 8.2 Eos % (Auto) 7.5 H Baso % (Auto) 0.6 Absolute Neuts (auto) 4.7 Absolute Lymphs (auto) 2.45 Nucleated RBC % 0 Sodium 140 Potassium 3.8 Chloride 104 Carbon Dioxide 25.0 Anion Gap 12 BUN 14 Creatinine 0.71 Estim Creat Clear Calc 107.79 Est GFR (MDRD) Non-Af 108 BUN/Creatinine Ratio 19.8 Glucose 105 H Calcium 9.2 Total Bilirubin 0.33 AST 27 ALT 33 Alkaline Phosphatase 58 Total Protein 7.7 Albumin 4.5 Globulin 3.2 Albumin/Globulin Ratio 1.4 Lipase 38 Urine Color Straw Urine Clarity Clear Urine pH 6.0 Ur Specific [place] 1.010 Urine Protein 15 H Urine Glucose (UA) Normal Urine Ketones Negative Urine Occult Blood 10 H Urine Nitrite Negative Urine Bilirubin Negative Urine Urobilinogen Normal Ur Leukocyte Esterase 25 H Urine RBC 0 SEEN Urine WBC 0-5 SEEN Ur Squamous Epith Cells 0-5 SEEN Urine Bacteria 0 SEEN Urine Mucus 0 SEEN Radiography Diagnostic Testing: Clinical Impression(s) from Imaging Studies Abdomen/Pelvis CT 01/06/25 13:01 IMPRESSION: No acute intra-abdominal process. Reading Location: [facility] Discharge Plan Triage Chief Complaint: Abd Pain ED Provider: Marvin Lyons Dx/Rx/DC Orders Clinical Impression: Abdominal pain, Nausea & vomiting Prescriptions: New dicyclomine 20 mg tablet 20 mg PO TID Qty: 20 0RF ondansetron 4 mg tablet,disintegrating 4 mg PO Q6H PRN (Reason: nausea and vomiting) Qty: 20 0RF No Action lidocaine-prilocaine 2.5-2.5 % cream 1 applic topical ONCE PRN (Reason: port access) 30 Days Qty: 30 2RF diclofenac sodium [Voltaren Arthritis Pain] 1 % gel 2 g topical TID PRN (Reason: pain) Rx Instructions: apply to single elbow, wrist or hand; for hand includes palm/fingers/back of hand digestive enzymes Capsule 1 cap PO DAILY Rx Instructions: administer with food; swallow whole; do not crush/chew/dissolve/break/cut L-Glutamine 500 mg capsule 500 mg PO DAILY vitamin B complex Capsule 1 cap PO DAILY Primary Care Provider: Didi Shaw Referrals: Didi Shaw MD [Primary Care Provider] - Activity Restrictions/Additional Instructions: Your blood work here today was normal as well as your CT scan did not show any acute findings. Use prescriptions that were sent to your pharmacy as prescribed. Follow-up your doctor in the outpatient setting return with worsening symptoms or any other concerns Print Language: Par[place]ayan Disposition Disposition: Home, Self Care
[2025-01-06 12:55] LABS: Color, Urine Straw (Yellow); Glucose, Dipstick Normal (Normal); Ketone-Dipstick Negative (Negative); Leukocyte Esterase-Dipstick 25 /ul (Negative); Nitrite-Dipstick Negative (Negative); Occult Blood-Urine 10 /ul (Negative); Protein-Dipstick 15 mg/dl (Negative); Urine Bilirubin Dipstick Negative (Negative); Urine Clarity Clear (Clear); Urine Urobilinogen Normal (Normal)
[2025-01-06 13:00] LABS: ALB/GLOB Ratio 1.4 RATIO (0.9-2.4); AST(SGOT) 27 U/L (<=31); Alanine Aminotransfer ALT/SGPT 33 U/L (<=34); Albumin, Serum 4.5 g/dL (3.5-5.0); Alkaline Phosphatase 58 U/L (35-104); Anion Gap 12 (5-15); BUN 14 mg/dL (4-19); BUN/Creat Ratio 19.8 RATIO (10-20); Calcium,Total 9.2 mg/dL (7.6-11.0); Chloride 104 mmol/L (98-108); Creatinine, Serum 0.71 mg/dL (0.70-1.20); EST Glomerular Filtration Rate 108 (>60); Estimated Creatinine Clearance 107.79 ml/min (50-250); Globulin 3.2 g/dL (2.2-4.2); Glucose 105 mg/dL (70-99); Lipase 38 U/L (13-75); Potassium 3.8 mmol/L (3.3-5.1); Protein, Total 7.7 g/dL (5.9-8.4); Sodium Level 140 mmol/L (133-145); Total Bilirubin 0.33 mg/dL (0.00-1.30)
--- NOTE | 2025-01-06 13:01 | CT_ITS ---
PROCEDURE: ABDOMEN/PELVIS W IV CONT ONLY 01/06/2025 REASON FOR EXAM: LLQ PAIN TECHNIQUE: ABDOMEN/PELVIS W IV CONT ONLY Coronal and Sagittal reconstruction series were provided. CONTRAST: 100 mL of Isovue 370 One or more dose reduction techniques were used (e.g., Automated exposure control, adjustment of the mA and/or kV according to patient size, use of iterative reconstruction technique. RADIATION DOSE SUMMARY: DLP: 947 mGycm COMPARISON: 11/03/2024 FINDINGS: Limited sections of the lung bases demonstrate no focal pulmonary mass or consolidations. The liver, spleen, pancreas, and both adrenal glands demonstrate no acute findings. Hepatic steatosis. Hepatomegaly to 20.8 cm. The gallbladder is unremarkable. The stomach is unremarkable. The small bowel loops are not dilated. The appendix is not well visualized, may be surgically removed. Status post right hemicolectomy. No colonic obstruction. Colonic diverticulosis without acute diverticulitis. There is no free air or significant free fluid. Scattered nonobstructive stones within the left kidney. Otherwise bilateral kidneys are unremarkable. The urinary bladder is partially distended. The pelvic structures are intact. There is no solid pelvic mass. IUD within the uterus. No significant lymphadenopathy. The aorta and IVC demonstrate no acute findings. Visualized osseous structures demonstrate no acute abnormality. Small fat containing umbilical hernia. CT/Abdomen/Pelvis W IV Cont ONLY IMPRESSION: No acute intra-abdominal process. Reading Location: [facility]
[2025-01-06 13:19] LABS: Squamous Epithelial Cells - UA 0-5 SEEN /hpf (5-10); White Blood Cells 0-5 SEEN /hpf (0-5)
[2025-01-06 14:00] VITALS: BP 132/60; PULSE 79; RESP 18; O2SAT 99
[2025-01-06 14:47] VITALS: BP 127/77; PULSE 80; RESP 18; TEMP 36.6; O2SAT 99
== END 2025-01-06 14:52 | disposition home or self-care (01) ==
PROVIDERS: Emergency Provider Emergency Medicine; PCP Internal Medicine; Visit Provider Emergency Medicine
DX: R10.9 Unspecified abdominal pain (principal); R11.2 Nausea with vomiting, unspecified; Z85.038 Personal history of other malignant neoplasm of large intestine; Z90.49 Acquired absence of other specified parts of digestive tract; K21.9 Gastro-esophageal reflux disease without esophagitis
CPT/HCPCS: 74177; 80053; 81001; 83690; 85025; 96360; 96361; 99283; Q9967; A4216

== ENCOUNTER → 2025-06-08 | Outpatient (CLI) | payer OTHER, SELFPAY ==
--- NOTE | 2025-06-08 13:38 | US_ITS ---
PROCEDURE: BREAST LIMITED UNILATERAL 06/08/2025 REASON FOR EXAM: F, Age 45 y/o , BREAST INFECTION Palpable abnormality left breast. Patient has been on an antibiotic. The palpable abnormality has decreased in size and is not as red since she started her antibiotic. Inconclusive mammogram showed a masslike density in this location. Evaluate. Focal area of breast pain in a different location of the left breast. Evaluate. COMPARISON: Mammogram dated 06/08/2025 and 08/07/2024. TECHNIQUE: Procedure Code: USBRSTLIMIT Modality: US Procedure: BREAST LIMITED UNILATERAL FINDINGS: The palpable abnormality an area of redness corresponds to a hypoechoic mass within the dermis of the left breast at the 7 o'clock, 9 cm from the nipple position measuring 8 x 5 x 3 mm. This mass does have a small amount of blood flow to it. This mass is wider than it is tall and does not produce any posterior shadowing. It is most compatible with a probable epidermal or sebaceous cyst. The patient states it is getting smaller in size and the skin is not as red. This does correlate to the density seen on the mammogram. The area of breast pain is located at the 1 o'clock to 3 o'clock position. There is no ultrasound abnormality to correlate. No suspicious solid or cystic masses are seen. The skin is not abnormally thickened. US/Breast Limited Unilateral IMPRESSION: There is a benign-appearing mass correlating to the palpable area which appears to represent an epidermal or sebaceous cyst. The patient should return in July 2025 for routine yearly screening mammography. BI-RADS 2: BENIGN RECOMMENDATION: Routine annual follow-up in 1 Year Reading Location: [id number]
--- NOTE | 2025-06-08 13:38 | BI_ITS ---
EXAM: DIAG MAMM W/CAD, BILAT N/A CLINICAL HISTORY: F, Age 45 y/o , BREAST INFECTION. Patient has been on an antibiotic and the palpable area and redness have improved. This area is located medially within the breast. Evaluate. She is having focal pain in the lateral superior aspect of the breast. Evaluate. TECHNIQUE: Procedure Code: [id number] Modality: MG Procedure: DIAG MAMM W/CAD, BILAT. COMPARISON: Prior exam(s) dated mammogram dated 08/07/2024 on 05/22/2023. FINDINGS: TISSUE DENSITY: There are scattered areas of fibroglandular density. Bilateral Breast Mammographic Findings: There are no suspicious masses, suspicious clustered microcalcifications, architectural distortion or secondary signs of malignancy identified in the right breast. Radiopaque markers are placed over the focal area of left breast pain and the palpable area and area of redness on the left breast. In the area of pain there is no mammographic abnormality to correlate. Further workup with ultrasound will be performed for further evaluation. In the location of the palpable area there is increased density in this location. Further workup with ultrasound will be performed. Benign round microcalcifications are seen in the left breast. BI/DIAG MAMM W/CAD, BILAT IMPRESSION: Ultrasonography of the focal area of breast pain and the palpable area will be performed later today. Please see that report. OVERALL FINAL ASSESSMENT BI-RADS 0: INCOMPLETE - NEED ADDITIONAL IMAGING EVALUATION. RECOMMENDATION: Ultrasound Recommended Additional Recommendation none A letter with findings and recommendations will be mailed to the patient. Reading Location: [id number]
== END | disposition home or self-care (01) ==
LOC: OPUS 13:35
PROVIDERS: PCP Internal Medicine; Referring Provider Nurse Practitioner Family; Visit Provider Nurse Practitioner Family
DX: N61.0 Mastitis without abscess (principal)
CPT/HCPCS: 76642; 77062; 77066; G0279